=== PATIENT | female | born 1945 | race Caucasian/White ===

== ENCOUNTER 2019-08-15 12:45 | Inpatient (IN) | payer MEDICARE, MEDICAID, SELFPAY ==
[2019-08-15] VITALS (10 sets, daily range): BP systolic 112–137; BP diastolic 51–85; PULSE 72–94; RESP 15–20; TEMP 36.7–37.4; O2SAT 92–97; BMI 45.9
--- NOTE | 2019-08-15 12:44 | ED_ITS ---
Entered by Stella Huerta, acting as scribe for Ervin Carpio DO HPI - General Adult General: Chief complaint: General Medical Stated complaint: BACK PAIN/COUGH Time Seen by Provider: 08/15/19 12:56 History of Present Illness: HPI narrative: 73 yo female presents with cough and back pain. Pt states that she has had this cough for a few days now. Pt states that she was placed on O2 today because EMS thought it was low, she doesn't normally need o2. Pt states that she is having pain in between her shoulder blades at this time. Onset (ago): day(s) Location: back Radiation: non-radiation Severity: moderate Quality: aching Pain Consistency: constant Relieving factors: none Exacerbating factors: movement Associated symptoms: Reports cough; Deny chest pain, dyspnea, malaise, nausea, rash or vomiting Review of Systems Const: Denies: fever, chills, body aches, change in appetite, fatigue or malaise ENMT: Denies: throat pain, ear pain, nasal discharge or nasal congestion Card: Denies: chest pain, edema, shortness of breath on exertion or shortness of breath when lying down Resp: Reports: non-productive cough; Denies: shortness of breath or productive cough GI: Denies: abdominal pain, nausea, vomiting, vomiting blood, coffee grounds in vomit, diarrhea, constipation, bloating, blood in stool or black tarry stool : Denies: flank pain, difficulty urinating, painful urination, urinary frequency or urinary urgency Musc: Reports: back pain Skin/Breast: Denies: rash or itching PFSH ED PFSH: Statuses (acute, chronic, etc) shown below reflect problem list status as previously entered and may not be historically accurate Medical History Arrhythmia (Acute) Back pain (Acute) Carpal tunnel syndrome (Acute) Cervical cancer (Acute) Chronic back pain (Acute) Chronic pain (Acute) COPD (chronic obstructive pulmonary disease) (Acute) Coronary artery disease (Acute) Diabetes mellitus (Acute) Diabetic neuropathy (Acute) Diastolic heart failure (Acute) DJD (degenerative joint disease) (Acute) Hyperlipidemia (Acute) Myocardial infarction (Acute) Obesity (Acute) Obstructive sleep apnea (Acute) Ovarian cancer (Acute) Paroxysmal atrial fibrillation (Acute) Thyroid disease (Acute) Surgical History History of angioplasty (Acute) History of back surgery (Acute) History of carpal tunnel surgery (Acute) History of cholecystectomy (Acute) History of coronary artery stent placement (Acute) History of hysterectomy (Acute) History of knee surgery (Acute) Family History Father No problems noted. Social History Smoking and tobacco status: current every day smoker Smoking risk assessment/counseling performed?: Yes Alcohol intake: current Alcohol intake frequency: holidays/special occasions only Substance/Drug Use: never Physical Exam Const: COMMON NORMALS: no apparent distress GENERAL APPEARANCE: cooperative and comfortable ORIENTATION/CONSCIOUSNESS: Yes awake, Yes oriented to person, Yes oriented to place and Yes oriented to time HENMT: COMMON NORMALS: normocephalic, head/scalp atraumatic, hearing grossly normal bilaterally, external ears normal, EAC's normal, TM's normal bilaterally, nasal mucous membranes and turbinates normal, moist oral mucous membranes and oropharynx normal HEAD & SCALP: normocephalic and atraumatic NOSE: nasal mucous membranes and turbinates normal EXTERNAL EAR: Yes external ears normal EXTERNAL AUDITORY CANAL: EAC's normal TYMPANIC MEMBRANE: TM's normal bilaterally Eye: COMMON NORMALS: PERRL, EOMs intact bilaterally, conjunctivae normal and no scleral icterus CONJUNCTIVA: Yes conjunctivae normal PUPIL: Yes PERRL Neck/C-Spine: COMMON NORMALS: full ROM, no lymphadenopathy, supple and no JVD Lymph: LYMPHATIC: no lymphadenopathy noted and no lymphedema noted Resp: COMMON NORMALS: normal respiratory effort, no retractions, no use of accessory muscles and clear to auscultation bilaterally AUSCULTATION: clear to auscultation bilaterally Cardio: COMMON NORMALS: no JVD, regular rate, regular rhythm and no murmurs RATE: regular rate RHYTHM: regular rhythm GI: COMMON NORMALS: soft to palpation and no hepatosplenomegaly AUSCULTATION: Yes normoactive bowel sounds PALPATION: Yes soft, No tender, No guarding and Yes no hepatosplenomegaly Extremity: COMMON NORMALS: normal to inspection, normal capillary refill, no clubbing, cyanosis or edema, no calf tenderness and no pedal edema Neuro: SENSORIUM/ORIENTATION: Yes oriented to person, Yes oriented to place and Yes oriented to time Skin: COMMON NORMALS: no rashes or lesions noted GENERAL SKIN EXAM: no rashes or lesions noted Course Vital Signs: Vital signs: Vital Signs Temperature 97.6 F 08/17/19 11:16 Pulse Rate 87 08/17/19 12:29 Respiratory Rate 20 H 08/17/19 12:29 Blood Pressure 114/61 08/17/19 11:16 Pulse Oximetry 94 08/17/19 12:29 [facility] - General Adult Lab Data: Labs: Lab Results 08/15/19 08/15/19 08/15/19 Range/Units 13:29 13:29 15:55 WBC 12.1 H (4.0-10.0) 10^3/ uL RBC 4.13 (4.1-5.3) 10^6/u L Hgb 11.8 (11.5-15.3) g/dL Hct 36.4 L (37.0-47.0) % MCV 88.1 (81-99) fL MCH 28.6 (28.0-34.0) pg MCHC 32.4 (30.0-36.0) g/dL RDW 14.2 (12.1-15.1) % Plt Count 220 (130-400) 10^3/c mm MPV 10.9 H (7.4-10.4) fL Neut % (Auto) 70.7 % Lymph % (Auto) 13.8 % Cecil % (Auto) 11.3 % Eos % (Auto) 0.9 % Baso % (Auto) 1.1 % Neut # (Auto) 8.6 H (1.8-7.7) 10^3/u L Lymph # (Auto) 1.7 (0.8-4.8) 10^3/u L Cecil # (Auto) 1.4 H (0.2-0.9) 10^3/u L Eos # (Auto) 0.1 (0.0-0.8) 10^3/u L Baso # (Auto) 0.1 (0.0-0.1) 10^3/u L Nucleated RBC % (a uto) 0 % Nucleated RBCs # 0.0 /100WBC Specimen Type Sample Site ABG pH (7.35-7.45) ABG pCO2 (35-45) mmHg ABG pO2 (80.0-100.0) mmH g ABG HCO3 (22-26) mmol/L ABG O2 Saturation ABG Base Excess (-2.0-2.0) mmol/ L Parmjit Test A-a O2 Gradient (5-10) mmHg Hematocrit (37-47) % Hgb O2 Saturation (95-100) % Carboxyhemoglobin (0.4-20.1) %THgb Methemoglobin (0.4-1.5) % Total Hemoglobin (12-16) g/dL Ionized Calcium (1.1-1.4) mmol/L O2 Delivery Device O2 Liters/Min % FiO2 % Point Of Care Specialist ID Sodium 128 L (136-145) mmol/L Potassium 4.5 (3.5-5.1) mmol/L Chloride 94 L (98-107) mmol/L Carbon Dioxide 19 L (22-29) mmol/L Anion Gap 19.5 H (5-19) BUN 19 (8-23) mg/dL Creatinine 1.0 H (0.5-0.9) mg/dL Glucose 150 H (74-106) mg/dL Calcium 10.1 (8.5-10.5) mg/dL Total Bilirubin 0.6 (0.15-1.2) mg/dL AST 37 H (0-32) U/L ALT 26 (0-33) U/L Alkaline Phosphata se 72 (35-105) IU/L Total Protein 7.9 (6.6-8.7) g/dL Albumin 2.7 L (3.5-5.2) g/dL Globulin 5.2 H (1.3-4.6) g/dL Lipase 34 (13-60) U/L Urine Color Yellow (Yellow) Urine Appearance Cloudy (CLEAR) Urine pH 7 (5-7) Ur Specific Gravit y 1.005 (1.005-1.030) Urine Protein Neg (Negative) Urine Glucose (UA) Norm (Normal) Urine Ketones 1+ H (Negative) Urine Occult Blood Neg (Negative) Urine Nitrate Positive H (Negative) Urine Bilirubin Neg (NEGATIVE) Urine Urobilinogen 1 H (Negative) mg/dL Ur Leukocyte Jessica ase 1+ H (Negative) Urine RBC 0-4 H (0-2) /hpf Urine WBC 15-25 H (0-5) /hpf Ur Squamous Epith Cells 15-25 H (0-5) Urine Bacteria 3+ H (NONE) Urine Mucus Trace 08/15/19 Range/Units 17:16 WBC (4.0-10.0) 10^3/ uL RBC (4.1-5.3) 10^6/u L Hgb (11.5-15.3) g/dL Hct (37.0-47.0) % MCV (81-99) fL MCH (28.0-34.0) pg MCHC (30.0-36.0) g/dL RDW (12.1-15.1) % Plt Count (130-400) 10^3/c mm MPV (7.4-10.4) fL Neut % (Auto) % Lymph % (Auto) % Cecil % (Auto) % Eos % (Auto) % Baso % (Auto) % Neut # (Auto) (1.8-7.7) 10^3/u L Lymph # (Auto) (0.8-4.8) 10^3/u L Cecil # (Auto) (0.2-0.9) 10^3/u L Eos # (Auto) (0.0-0.8) 10^3/u L Baso # (Auto) (0.0-0.1) 10^3/u L Nucleated RBC % (a uto) % Nucleated RBCs # /100WBC Specimen Type Arterial Sample Site Brachial, left ABG pH 7.45 (7.35-7.45) ABG pCO2 32.6 L (35-45) mmHg ABG pO2 71.0 L (80.0-100.0) mmH g ABG HCO3 22.6 (22-26) mmol/L ABG O2 Saturation 94.5 ABG Base Excess -0.9 (-2.0-2.0) mmol/ L Parmjit Test Pos A-a O2 Gradient 137.4 H (5-10) mmHg Hematocrit 37.0 (37-47) % Hgb O2 Saturation 93.1 L (95-100) % Carboxyhemoglobin 1.1 (0.4-20.1) %THgb Methemoglobin 0.5 (0.4-1.5) % Total Hemoglobin 12.1 (12-16) g/dL Ionized Calcium 1.3 (1.1-1.4) mmol/L O2 Delivery Device Nc O2 Liters/Min 4.0 % FiO2 36.0 % Point Of Care Specialist ID cak Sodium 131.0 (136-145) mmol/L Potassium 4.3 (3.5-5.1) mmol/L Chloride (98-107) mmol/L Carbon Dioxide (22-29) mmol/L Anion Gap (5-19) BUN (8-23) mg/dL Creatinine (0.5-0.9) mg/dL Glucose 178.0 H (74-106) mg/dL Calcium (8.5-10.5) mg/dL Total Bilirubin (0.15-1.2) mg/dL AST (0-32) U/L ALT (0-33) U/L Alkaline Phosphata se (35-105) IU/L Total Protein (6.6-8.7) g/dL Albumin (3.5-5.2) g/dL Globulin (1.3-4.6) g/dL Lipase (13-60) U/L Urine Color (Yellow) Urine Appearance (CLEAR) Urine pH (5-7) Ur Specific Gravit y (1.005-1.030) Urine Protein (Negative) Urine Glucose (UA) (Normal) Urine Ketones (Negative) Urine Occult Blood (Negative) Urine Nitrate (Negative) Urine Bilirubin (NEGATIVE) Urine Urobilinogen (Negative) mg/dL Ur Leukocyte Jessica ase (Negative) Urine RBC (0-2) /hpf Urine WBC (0-5) /hpf Ur Squamous Epith Cells (0-5) Urine Bacteria (NONE) Urine Mucus Discharge Plan Discharge Patient Disposition: Admitted As Inpatient Admit Provider: Micha Goode Clinical Impression: COPD exacerbation, Diabetes mellitus, Hyponatremia, Acute diastolic heart failure Condition: Stable Interventions: ED Discharge Assessment Last Done: 08/15/19 18:44 Discharge Date/Time: 08/15/19 19:42 Coding Level of Care Code ED Vessel Engineer for Chg Fwd Exam Problem Focused The documentation recorded by the Bradley bruce Kialy, accurately reflects the service I personally performed and the decisions made by Balaji villalpando Curtis L, DO Aug 15, 2019 12:45
--- NOTE | 2019-08-15 12:57 | XRR_ITS ---
PROCEDURE INFORMATION: Exam: XR Chest, 1 View Exam date and time: 08/15/2019 1:26 PM Age: 73 years old Clinical indication: Cough TECHNIQUE: Imaging protocol: XR of the chest Views: 1 view. COMPARISON: CR Chest 1 [place] [id number] 07/08/2017 9:19 AM FINDINGS: Lungs: Unremarkable. No consolidation. Pleural space: Elevated right hemidiaphragm is seen stable since prior. No pleural effusion. No pneumothorax. Heart/Mediastinum: Unremarkable. No cardiomegaly. Bones/joints: Unremarkable. Surgical hardware seen in the cervical spine stable since prior XR/XR chest 1V portable [id number] IMPRESSION: No acute findings. Stable surgical hardware cervical spine Elevation right hemidiaphragm
[2019-08-15 13:36] LABS: Basophils # 0.1 10^3/uL (0.0-0.1); Basophils % 1.1 %; Eosinophils # 0.1 10^3/uL (0.0-0.8); Eosinophils % 0.9 %; Hematocrit 36.4 % (37.0-47.0); Hemoglobin 11.8 g/dL (11.5-15.3); Lymphocytes # 1.7 10^3/uL (0.8-4.8); Lymphocytes % 13.8 %; Mean Corpuscular HGB Conc 32.4 g/dL (30.0-36.0); Mean Corpuscular Hemoglobin 28.6 pg (28.0-34.0); Mean Corpuscular Volume 88.1 fL (81-99); Mean Platelet Volume 10.9 fL (7.4-10.4); Monocytes # 1.4 10^3/uL (0.2-0.9); Monocytes % 11.3 %; Neutrophils # 8.6 10^3/uL (1.8-7.7); Neutrophils % 70.7 %; Nucleated Red Blood Cells % 0 %; Platelet Count 220 10^3/cmm (130-400); Red Blood Count 4.13 10^6/uL (4.1-5.3); Red Cell Distribution Width 14.2 % (12.1-15.1); White Blood Count 12.1 10^3/uL (4.0-10.0)
[2019-08-15 13:50] LABS: Alanine Aminotransferase 26 U/L (0-33); Albumin Level 2.7 g/dL (3.5-5.2); Alkaline Phosphatase 72 IU/L (35-105); Anion Gap 19.5 (5-19); Aspartate Amino Transferase 37 U/L (0-32); Blood Urea Nitrogen 19 mg/dL (8-23); Calcium 10.1 mg/dL (8.5-10.5); Carbon Dioxide 19 mmol/L (22-29); Chloride 94 mmol/L (98-107); Globulin 5.2 g/dL (1.3-4.6); Glucose 150 mg/dL (74-106); Lipase 34 U/L (13-60); Potassium 4.5 mmol/L (3.5-5.1); Sodium 128 mmol/L (136-145); Total Bilirubin 0.6 mg/dL (0.15-1.2); Total Protein 7.9 g/dL (6.6-8.7)
[2019-08-15] MEDS: ipratropium-albuterol 3 mL Neb INHALATION ×2 (15:55→21:38)
[2019-08-15 16:30] LABS: Urine Appearance Cloudy (CLEAR); Urine Color Yellow (Yellow)
[2019-08-15 16:31] LABS: Add Urine Microscopic? YES; Bilirubin Urine Neg (NEGATIVE); Blood Urine Neg (Negative); Glucose Urine UA Norm (Normal); Ketones Urine 1+ (Negative); Leukocyte Esterase Urine 1+ (Negative); Nitrate Urine Positive (Negative); Protein Urine Neg (Negative); Specific Gravity, Urine 1.005 (1.005-1.030); Urobilinogen Urine 1 mg/dL (Negative); pH Urine 7 (5-7)
[2019-08-15 16:37] LABS: Bacteria Urine 3+; Mucus Urine TRACE; RBC Urine 0-4 /hpf (0-2); Squamous Epithelial Cell Urine 15-25 (0-5); WBC Urine 15-25 /hpf (0-5)
--- NOTE | 2019-08-15 17:17 | ECG_ITS ---
Measurements Intervals [place] Rate: 77 P: 55 RI: 173 QRS: 28 QRSD: 105 T: 21 QT: 382 QTc: 434 SINUS RHYTHM Compared to ECG 07/08/2017 09:26:35 Atrial fibrillation no longer present Myocardial infarct finding no longer present Electronically Signed On 08-15-2019 21:02:52 IT BUSINESS SYSTEMS ANALYST by Amelie Cochran M.D. [id number]
--- NOTE | 2019-08-15 17:26 | PM.HP ---
Providers/Chief Complaint Primary Care Provider: Kannan Contreras Chief Complaint: BACK PAIN/COUGH History of Present Illness Emerald Uriostegui is a 73 year old female that presents from home. She has been having a cough for at least several weeks. No fever. She reports the cough is usually not productive. She has been short of breath, and wheezing. She has had no nausea, vomiting, or diarrhea. She reports she continues to take her medicine as prescribed. She reports she has had significant leg edema, but this is improved as of late. Review of Systems General: Reports: 10 or more systems reviewed and unremarkable except in HPI and below Const: Denies: fever or body aches Eyes: Denies: blurry vision ENMT: Denies: throat pain Card: Reports: chest pain and other (Pain occurs with coughing) Resp: Reports: shortness of breath and wheezing; Denies: coughing up blood GI: Denies: abdominal pain : Denies: flank pain or difficulty urinating Musc: Denies: neck pain Skin/Breast: Denies: rash Neuro: Denies: headache Psych: Denies: depression Endo: Denies: excessive urination Avinash/Lymph: Denies: easy bruising All/Imm: Denies: hives Medications/Allergies Home Medications Medication Instructions Recorded Confirmed Last Taken Type ergocalciferol (vitamin D2) 50,000 unit PO Q7D 08/15/19 08/15/19 08/10/19 History [Vitamin D2] furosemide 40 mg PO DAILY 08/15/19 08/15/19 08/15/19 History insulin glargine [Basaglar KwikPen 52 unit SUBCUT DAILY 08/15/19 08/15/19 08/14/19 History U-100 Insulin] levothyroxine 75 mcg PO DAILY 08/15/19 08/15/19 08/15/19 History metformin 1,000 mg PO BID 08/15/19 08/15/19 08/15/19 History metoprolol tartrate 25 mg PO BID PRN 08/15/19 08/15/19 08/15/19 History montelukast 10 mg PO DAILY 08/15/19 08/15/19 08/15/19 History naproxen 500 mg PO BID PRN 08/15/19 08/15/19 Unknown History oxycodone 15 mg PO QID PRN 08/15/19 08/15/19 08/15/19 History pregabalin 300 mg PO BID 08/15/19 08/15/19 08/15/19 History rivaroxaban [Xarelto] 20 mg PO DAILY 08/15/19 08/15/19 08/15/19 History spironolactone 25 mg PO BID 08/15/19 08/15/19 08/15/19 History Allergies Allergy/AdvReac Type Severity Reaction Status Date / Time cefuroxime [From Zinacef] Allergy ALGY-Hives Verified 07/20/19 18:42 doxepin Allergy ADR-Nightma Verified 07/20/19 18:42 re PFSH Acute PFSH: Statuses (acute, chronic, etc) shown below reflect problem list status as previously entered and may not be historically accurate Medical History (Updated 08/15/19 @ 17:36 by Micha Goode MD) Arrhythmia (Acute) Back pain (Acute) Carpal tunnel syndrome (Acute) Cervical cancer (Acute) Chronic back pain (Acute) Chronic pain (Acute) COPD (chronic obstructive pulmonary disease) (Acute) Coronary artery disease (Acute) Diabetes mellitus (Acute) Diabetic neuropathy (Acute) Diastolic heart failure (Acute) DJD (degenerative joint disease) (Acute) Hyperlipidemia (Acute) Myocardial infarction (Acute) Obesity (Acute) Obstructive sleep apnea (Acute) Ovarian cancer (Acute) Paroxysmal atrial fibrillation (Acute) Thyroid disease (Acute) Surgical History (Updated 08/15/19 @ 17:30 by Micha Goode MD) History of angioplasty (Acute) History of back surgery (Acute) History of carpal tunnel surgery (Acute) History of cholecystectomy (Acute) History of coronary artery stent placement (Acute) History of hysterectomy (Acute) History of knee surgery (Acute) Family History (Updated 08/15/19 @ 17:31 by Micha Goode MD) Father No problems noted. Social History (Updated 08/15/19 @ 17:31 by Micha Goode MD) Smoking and tobacco status: current every day smoker Smoking risk assessment/counseling performed?: Yes Alcohol intake: current Alcohol intake frequency: holidays/special occasions only Substance/Drug Use: never Vitals/I&O/Wt Last Vital Signs Temp 99.3 F 08/15/19 12:38 Pulse 94 08/15/19 15:59 Resp 18 08/15/19 15:55 BP 112/51 08/15/19 12:38 Pulse Ox 92 08/15/19 15:55 Weight last 48 hrs Weight 125.191 kg Physical Exam Narrative: EXAM NARRATIVE: General exam no current distress HEENT: Pupils equally round. Oropharynx clear. Neck is supple obese nontender no obvious lymphadenopathy or thyromegaly Cardiovascular regular rate and rhythm, heart sounds distant Lungs diminished breath sounds bilaterally. A faint expiratory wheeze. Some end expiratory rhonchi. Abdomen is obese nontender. No obvious organomegaly was deferred Extremities show 1+ edema bilaterally. Cap refill brisk. No cyanosis or clubbing Skin no rash Neuro no focal deficits Data : 08/15/19 13:29 08/15/19 13:29 Other data: Urine appears contaminated. Chest x-ray no infiltrate. Elevated right hemidiaphragm. Calcified aorta. Hardware noted in the neck. A&P Assessment and plan (1) COPD exacerbation: IV steroids, pulmonary toilet, IV Levaquin Check influenza swab Status: Acute Code(s): J44.1 - Chronic obstructive pulmonary disease with (acute) exacerbation (2) Hyponatremia: Initiate diuresis. Fluid restrict. Recheck in about 4 hours and tomorrow Status: Acute Code(s): E87.1 - Hypo-osmolality and hyponatremia (3) Acute diastolic heart failure: Initiate diuresis with Lasix Check echocardiogram Status: Acute Code(s): I50.31 - Acute diastolic (congestive) heart failure (4) Leukocytosis: Secondary to COPD exacerbation Status: Acute Code(s): D72.829 - Elevated white blood cell count, unspecified (5) Respiratory failure with hypoxia: Likely secondary to COPD exacerbation/diastolic heart failure Status: Acute Code(s): J96.91 - Respiratory failure, unspecified with hypoxia Additional A&P Information Abnormal urine with lots of squamous. We will repeat Type 2 diabetes. Sliding scale insulin Coronary artery disease Hyperlipidemia Hypothyroidism History of paroxysmal atrial fibrillation Multiple other medical problems as outlined in past medical history Continue patient's Xarelto which will suffice for DVT prophylaxis Attestations Medical Necessity Statement*: Will need greater than 2 midnight stay, for treatment of COPD exacerbation and acute diastolic heart failure Time Spent in Patient Care: Greater than 35 minutes Coding Level of Care Code Acute Media Planner / Buyer for g Fwd Diagnoses COPD exacerbation J44.1 Hyponatremia E87.1 Acute diastolic heart failure I50.31 Leukocytosis D72.829 Respiratory failure with hypoxia J96.91
[2019-08-15 17:27] LABS: ABG PCO2 32.6 mmHg (35-45); ABG PH Result 7.45 (7.35-7.45); Alveolar-Arterial Oxygen Gradi 137.4 mmHg (5-10); Base Excess ABG -0.9 mmol/L (-2.0-2.0); Blood Gas Allen Test Pos; Blood Gas Sample Site Brachial, left; Blood Gas Sample Type Arterial; Carboxyhemoglobin 1.1 %THgb (0.4-20.1); HCO3 ABG 22.6 mmol/L (22-26); HGB O2 Sat 93.1 % (95-100); Ionized Calcium Level - ABG 1.3 mmol/L (1.1-1.4); Methemoglobin 0.5 % (0.4-1.5); Oxygen Device NC; Oxygen Saturation ABG 94.5; Potassium Level - ABG 4.3 mmol/L (3.5-5.0); Total Hemoglobin 12.1 g/dL (12-16)
[2019-08-15 18:34] LABS: Troponin(5th) Baseline 13 ng/mL (0-10)
--- NOTE | 2019-08-15 19:17 | ECG_ITS ---
Measurements Intervals [place] Rate: 76 P: 63 [place]: 175 QRS: 42 QRSD: 113 T: 26 QT: 380 QTc: 428 SINUS RHYTHM MODERATE INTRAVENTRICULAR CONDUCTION DELAY [110+ ms QRS DURATION] Compared to ECG 08/15/2019 18:15:25 Intraventricular conduction delay now present Electronically Signed On 08-16-2019 20:15:50 SUPERVISOR PLASTICS by Sophie Arcos M.D. [id number] f
[2019-08-15 19:36] LABS: NT Pro B Type Natriuretic Pept 315 pg/mL (0-125)
--- NOTE | 2019-08-15 19:51 | USCV_ITS ---
Emerald Uriostegui Age: 73 Gender: F : 1945 Exam Date: 08/15/2019 20:16 Ordering Phys: Micha Goode MD Technologist: Conchita Lam [place] [facility] [place]: [place]F BP: / HR: 75 Rhythm: Sinus Technical Quality: MEASUREMENTS (Male / Female) Normal Values 2D ECHO LV Diastolic Diameter PLAX 3.7 cm 4.2 - 5.9 / 3.9 - 5.3 cm LV Systolic Diameter PLAX 2.6 cm LV Chamber Size 3.3 cm IVS Diastolic Thickness 1.2 cm 0.6 - 1.0 / 0.6 - 0.9 cm IVS Systolic Thickness 1.6 cm LVPW Diastolic Thickness 2.1 cm 0.6 - 1.0 / 0.6 - 0.9 cm LVPW Systolic Thickness 2.5 cm RV Chamber Size 2.4 cm LVOT Diameter 2.0 cm LV Ejection Fraction 2D Teich 57.4 % LV Ejection Fraction MOD 2C 53.5 % LV Ejection Fraction 2C AL 52.3 % LA Diameter 3.8 cm LA Width 3.0 cm LA Height 4.5 cm Aorta at Sinotubular Diameter 1.9 cm M-MODE LV Diastolic Diameter MM 5.2 cm 4.2 - 5.9 / 3.9 - 5.3 cm LV Systolic Diameter MM 3.1 cm LV Ejection Fraction MM Teich 71.1 % IVS Diastolic Thickness MM 0.7 cm 0.6 - 1.0 / 0.6 - 0.9 cm IVS Systolic Thickness MM 1.0 cm LVPW Diastolic Thickness MM 0.9 cm 0.6 - 1.0 / 0.6 - 0.9 cm LVPW Systolic Thickness MM 1.3 cm Aortic Annulus Diameter 2.9 cm LA Ao Ratio MM 1.3 MV E Point Septal Separation 0.5 cm DOPPLER AV Peak Velocity 136.0 cm/s LVOT Peak Velocity 128.0 cm/s AV Area Cont Eq vti 3.3 cm squared AV Area Cont Eq pk 3.0 cm squared MV Area PHT 3.9 cm squared Mitral E to A Ratio 1.1 MV E' Velocity 9.0 cm/s Mitral E to MV E' Ratio 11.1 Mitral E to LV E' Lateral Ratio 10.5 Mitral E to LV E' Septal Ratio 12.0 TR Peak Velocity 173.0 cm/s TR Peak Gradient 12.0 mmHg TV Peak E Velocity 64.0 cm/s Right Atrial Pressure 3.0 mmHg Pulmonary Artery Systolic Pressu 15.0 mmHg PV Peak Velocity 106.0 cm/s RV Acceleration Time 0.1 s RV Ejection Time 0.4 s RV AcT/ET 0.4 FINDINGS Left Ventricle Normal left ventricular cavity size. Normal left ventricular systolic function. No regional wall motion abnormalities. Left ventricular ejection fraction is estimated at 71 %. Grade I/IV diastolic dysfunction (abnormal relaxation filling pattern), normal to mildly elevated filling pressures. Right Ventricle The right ventricle is normal in size and function. Right Atrium The right atrium is normal in size. Left Atrium The left atrium is normal in size. Mitral Valve Structurally normal mitral valve without significant stenosis or prolapse. There is no mitral regurgitation. Aortic Valve Moderate aortic valve calcification. No aortic valve stenosis. No aortic valve regurgitation. Tricuspid Valve Structurally normal tricuspid valve without significant stenosis or regurgitation. Pulmonary artery systolic pressure is normal. Pulmonic Valve Structurally normal pulmonic valve without significant stenosis. There is no pulmonic regurgitation. Pericardium Normal pericardium without effusion. Aorta Normal ascending aorta dimension. CONCLUSIONS 1-Normal left ventricular cavity size. Normal left ventricular systolic function. No regional wall motion abnormalities. Left ventricular ejection fraction is estimated at 71 %. Grade I/IV diastolic dysfunction (abnormal relaxation filling pattern), normal to mildly elevated filling pressures. 2-Moderate aortic valve calcification. No aortic valve stenosis. No aortic valve regurgitation. 3-There is no pericardial effusion. 4-Pulmonary artery systolic pressure is within normal limits. 5-Right atrial pressure is around 5 mm of mercury. 6-When compared to the prior echocardiogram dated 01/15/2015 diastolic function has improved from grade 3 restrictive filling pattern to grade 1 slightly abnormal relaxation pattern. Sophie Arcos MD (Electronically Signed) Final Date: 16 August 2019 19:53 S
--- NOTE | 2019-08-15 19:51 | USCV_ITS ---
Emerald Uriostegui Age: 73 Gender: F : 1945 Exam Date: 08/15/2019 20:35 Ordering Phys: Micha Goode MD Technologist: Conchita Lam Exam Location: [facility] – [place]_ Indication: EDEMA HISTORY: Lower extremity edema. PROCEDURES: Venous duplex imaging was performed in bilateral lower extremities. The following venous structures were evaluated: common femoral vein, profunda vein, proximal portion of the greater saphenous vein, superficial femoral vein, and the popliteal vein. In addition, the posterior tibial and peroneal trunk were evaluated. Serial compression, augmentation maneuvers, and spectral Doppler flow evaluation were performed. FINDINGS: Normal 2-D Doppler and augmentation and compressibility throughout the lower extremity venous structures. Additional imaging through the proximal calf veins also reveals no thrombus. Limited evaluation of the greater saphenous vein is patent with no thrombus.. CONCLUSIONS Negative bilateral lower extremity venous Doppler ultrasound. Dr. Di Moore MD (Electronically Signed) Final Date: 16 August 2019 08:26 S
--- NOTE | 2019-08-15 19:53 | PC.NURSE ---
Patient to room via gurney. A&O. Oriented to staff. Call light in place. VS being taken. Bed is in lowest, locked position.
[2019-08-15 20:07] LABS: Influenza A by IFA Negative (Negative); Influenza B by IFA Negative (Negative)
[2019-08-15 20:17] LABS: Anion Gap 18.4 (5-19); Blood Urea Nitrogen 20 mg/dL (8-23); Calcium 10.1 mg/dL (8.5-10.5); Carbon Dioxide 18 mmol/L (22-29); Chloride 97 mmol/L (98-107); Glucose 204 mg/dL (74-106); Osmolality Calculated 270 mOsm/kg (285-295); Potassium 4.4 mmol/L (3.5-5.1); Sodium 129 mmol/L (136-145)
[2019-08-15 20:19] LABS: Troponin 5 2HR 12.15 ng/mL (0-10)
[2019-08-15 20:27] LABS: Troponin 5 2HR Delta -0.85 ABS# (0-10)
[2019-08-15] MEDS: FUROsemide 10 mg/mL SDV 4mL 40 MG IVP (21:00)
[2019-08-15] MEDS: predniSONE 20 mg Tablet 40 MG PO (21:00)
[2019-08-15] MEDS: oxyCODONE 5 mg IR Tab/Cap 15 MG PO (21:15)
[2019-08-15 21:48] LABS: Glucose Point of Care 217 mg/dL (70-110)
[2019-08-15] MEDS: metoprolol tartrate 25 mg Tablet PO (21:51)
[2019-08-15 22:09] LABS: Blood Urine Neg (Negative); Glucose Urine UA Norm (Normal); Ketones Urine Negative (Negative); Nitrate Urine Positive (Negative); Protein Urine Neg (Negative); Specific Gravity, Urine 1.005 (1.005-1.030); Urine Appearance Clear (CLEAR); Urine Color Yellow (Yellow); pH Urine 6 (5-7)
[2019-08-15 22:10] LABS: Bilirubin Urine Neg (NEGATIVE); Leukocyte Esterase Urine Negative (Negative); Urobilinogen Urine Norm (Negative)
[2019-08-15 22:15] LABS: Add Urine Culture? Yes; Bacteria Urine 3+; Mucus Urine TRACE; Squamous Epithelial Cell Urine 0-4 (0-5); WBC Urine 0-4 /hpf (0-5)
[2019-08-15] MEDS: levofloxacin-dextrose 5 % 750 MG/150 ML PREMIX 150 MG IV (22:15)
--- NOTE | 2019-08-15 23:17 | ECG_ITS ---
Measurements Intervals [place] Rate: 71 P: 59 DC: 186 QRS: 2 QRSD: 102 T: 10 QT: 394 QTc: 429 SINUS RHYTHM Compared to ECG 08/15/2019 18:15:25 No significant changes Electronically Signed On 08-16-2019 20:16:45 MEDIA MANAGER by Sophie Arcos M.D. [id number]
[2019-08-16] VITALS (17 sets, daily range): BP systolic 96–121; BP diastolic 41–69; PULSE 65–81; RESP 17–22; TEMP 36.4–36.8; O2SAT 92–96
[2019-08-16 00:01] LABS: Troponin 5 6HR 11.99 ng/L (0-10)
[2019-08-16 00:09] LABS: Troponin 5 6HR Delta -1.01 ng/L (0-12)
[2019-08-16] MEDS: ipratropium-albuterol 3 mL Neb INHALATION ×5 (03:55→19:47)
[2019-08-16 05:31] LABS: Basophils % 0.2 %; Hematocrit 32.2 % (37.0-47.0); Hemoglobin 10.3 g/dL (11.5-15.3); Lymphocytes % 11.9 %; Mean Corpuscular Hemoglobin 28.1 pg (28.0-34.0); Mean Corpuscular Volume 87.7 fL (81-99); Mean Platelet Volume 10.5 fL (7.4-10.4); Monocytes # 0.5 10^3/uL (0.2-0.9); Monocytes % 5.7 %; Neutrophils # 6.9 10^3/uL (1.8-7.7); Neutrophils % 79.4 %; Nucleated Red Blood Cells % 0 %; Platelet Count 243 10^3/cmm (130-400); Red Blood Count 3.67 10^6/uL (4.1-5.3); White Blood Count 8.7 10^3/uL (4.0-10.0)
[2019-08-16 05:47] LABS: Anion Gap 23.3 (5-19); Blood Urea Nitrogen 21 mg/dL (8-23); Calcium 9.7 mg/dL (8.5-10.5); Carbon Dioxide 18 mmol/L (22-29); Chloride 95 mmol/L (98-107); Glucose 182 mg/dL (74-106); Osmolality Calculated 275 mOsm/kg (285-295); Potassium 4.3 mmol/L (3.5-5.1); Sodium 132 mmol/L (136-145)
[2019-08-16 06:57] LABS: Glucose Point of Care 192 mg/dL (70-110)
[2019-08-16] MEDS: oxyCODONE 5 mg IR Tab/Cap 15 MG PO ×2 (08:43→17:31)
[2019-08-16] MEDS: pregabalin 150 mg Capsule 300 MG PO ×2 (08:43→17:32)
[2019-08-16] MEDS: atorvastatin 40 mg Tablet 20 MG PO (08:44)
[2019-08-16] MEDS: rivaroxaban 10 mg Tablet 20 MG PO (08:44)
[2019-08-16] MEDS: montelukast sodium 10 mg Tablet PO (08:44)
[2019-08-16] MEDS: levothyroxine 150 mcg Tablet 75 MCG PO (08:44)
[2019-08-16] MEDS: FUROsemide 10 mg/mL SDV 4mL 40 MG IVP ×2 (08:45→19:49)
[2019-08-16] MEDS: metoprolol tartrate 25 mg Tablet PO ×2 (08:45→17:32)
[2019-08-16] MEDS: predniSONE 20 mg Tablet 40 MG PO (08:45)
[2019-08-16] MEDS: insulin glargine 100 units/1 mL 52 UNIT SUBCUT (08:47)
[2019-08-16] MEDS: lanolin oint 7 gm 1 APPLIC TOPICAL (08:59)
[2019-08-16 10:59] LABS: Glucose Point of Care 223 mg/dL (70-110)
[2019-08-16] MEDS: levofloxacin-dextrose 5 % 750 MG/150 ML PREMIX 150 MG IV (11:24)
--- NOTE | 2019-08-16 14:06 | PC.CHAP ---
Pastoral Care Encounter/Spiritual Assessment Type of Contact [] Declined inspector set up and lay out visit [] Patient/Family/Request visit [] Outpatient visit [] Follow-up visit [] Physician referral [] Code/Alert [x] Routine visit [] Staff referral [] Actively dying [] Patient sleeping [] Family support [] [] Out of room [] Palliative care [] [] Receiving care in room [] Pre-surgical visit [] Trauma [] Long length of stay [] ICU visit [] Other: Relational/Emotional Strength [x] Patient feels connected with others/family/visitors/staff [] Distress [] Loneliness/isolation [] Abandonment Spirituality of Patient [x] Person of Adali [] Attends Anglican of their Adali [x] Believes in Prayer [] Reads Bible or Gnosticist materials [] There are Spiritual issues to be addressed Meat Seafood Associate Interventions [x] Prayer [x] Active listening [x] Non-anxious presence [x] Spiritual/emotional support [] Crisis/trauma care [] Spiritual counseling [] Bereavement support [] Provided bereavement packet [] Provided Bible/devotional materials [] Provided toy/stuffed animal, coloring book to patient or family member [] Provided Communion [] Anointing/[place] [] Salvation [] Completed spiritual assessment [] Other: Impact on Illness or Injury [] Angry [] Fearful [] Anxious [] Often cries [] Exhaustion [] Unable to work [] Unable to attend bahai [] Unable to walk/stand [] Unable to read [] Unable to drive [] Unable to eat/drink [] Unable to sleep [] Unable to be with family [] Patient intubated [] Other: Summary The inspector set up and lay out visited with the patient and prayed for her. Time spent with patient 10 min.
--- NOTE | 2019-08-16 14:09 | P.PN_ITS ---
Subjective Subjective: Interval history: Emerald reports her breathing is little bit better. Ankles are less swollen. No specific complaints today. Does not feel like she is back to baseline. Still wheezing some. Medications: Reviewed: Yes Vitals/I&O/Wt Last Vital Signs Temp 97.7 F 08/16/19 11:34 Pulse 71 08/16/19 11:34 Resp 20 H 08/16/19 11:34 BP 101/54 08/16/19 11:34 Pulse Ox 92 08/16/19 11:34 08/15/19 08/16/19 08/16/19 22:59 06:59 14:59 Intake Total 900 / 900 600 / 600 Output Total 800 / 800 400 / 1200 Balance -800 / -800 500 / -300 600 / 600 Weight last 48 hrs Weight 125.191 kg Physical Exam Narrative: EXAM NARRATIVE: General exam no apparent distress Cardiovascular regular rate and rhythm without murmur Lungs faint bilateral expiratory wheezes. Improved aeration from yesterday Abdomen is soft with positive bowel sounds Extremities trace edema Data : 08/16/19 04:48 08/16/19 04:48 A&P Assessment and plan (1) COPD exacerbation: Continue oral prednisone Continue Levaquin Continue pulmonary toilet Overall appears to be improving Wean oxygen Status: Acute Code(s): J44.1 - Chronic obstructive pulmonary disease with (acute) exacerbation (2) Hyponatremia: Initiate diuresis. Fluid restrict. Recheck in about 4 hours and tomorrow Status: Acute Code(s): E87.1 - Hypo-osmolality and hyponatremia (3) Acute diastolic heart failure: Continue diuresis with Lasix Echocardiogram is pending Lower extremity edema and dyspnea is improved Status: Acute Code(s): I50.31 - Acute diastolic (congestive) heart failure (4) Leukocytosis: Resolved Status: Acute Code(s): D72.829 - Elevated white blood cell count, unspecified (5) Respiratory failure with hypoxia: Likely secondary to COPD exacerbation/diastolic heart failure Improving. Will wean oxygen Status: Acute Code(s): J96.91 - Respiratory failure, unspecified with hypoxia Additional A&P Information Abnormal urine with lots of squamous. Repeat urinalysis did not indicate UTI Type 2 diabetes. Sliding scale insulin Coronary artery disease Hyperlipidemia Hypothyroidism History of paroxysmal atrial fibrillation Multiple other medical problems as outlined in past medical history Continue patient's Xarelto which will suffice for DVT prophylaxis Attestations Medical Necessity Statement*: Needs continued hospital stay for pulmonary toilet, IV antibiotics, secondary to COPD exacerbation. 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
[2019-08-16 16:11] LABS: Glucose Point of Care 226 mg/dL (70-110)
[2019-08-16] MEDS: efferdent effervescent 1 EACH DENTAL (19:49)
[2019-08-16 21:44] LABS: Glucose Point of Care 214 mg/dL (70-110)
[2019-08-17] VITALS (22 sets, daily range): BP systolic 96–145; BP diastolic 53–82; PULSE 65–89; RESP 16–24; TEMP 36.4–36.8; O2SAT 90–96
[2019-08-17] MEDS: ipratropium-albuterol 3 mL Neb INHALATION ×6 (00:04→20:04)
[2019-08-17] MEDS: oxyCODONE 5 mg IR Tab/Cap 15 MG PO ×4 (00:47→21:46)
[2019-08-17 05:33] LABS: Blood Urea Nitrogen 31 mg/dL (8-23); Carbon Dioxide 22 mmol/L (22-29); Chloride 98 mmol/L (98-107); Glucose 167 mg/dL (65-115); Osmolality Calculated 279 mOsm/kg (285-295); Sodium 134 mmol/L (136-145)
[2019-08-17 06:57] LABS: Glucose Point of Care 175 mg/dL (70-110)
[2019-08-17] MEDS: metoprolol tartrate 25 mg Tablet PO ×2 (08:16→18:04)
[2019-08-17] MEDS: predniSONE 20 mg Tablet 40 MG PO (08:16)
[2019-08-17] MEDS: levothyroxine 150 mcg Tablet 75 MCG PO (08:16)
[2019-08-17] MEDS: rivaroxaban 10 mg Tablet 20 MG PO (08:17)
[2019-08-17] MEDS: pregabalin 150 mg Capsule 300 MG PO ×2 (08:18→18:04)
[2019-08-17] MEDS: atorvastatin 40 mg Tablet 20 MG PO (08:19)
[2019-08-17] MEDS: montelukast sodium 10 mg Tablet PO (08:19)
[2019-08-17] MEDS: insulin glargine 100 units/1 mL 52 UNIT SUBCUT (08:23)
[2019-08-17] MEDS: levofloxacin-dextrose 5 % 750 MG/150 ML PREMIX 150 MG IV (08:29)
[2019-08-17 10:59] LABS: Glucose Point of Care 194 mg/dL (70-110)
[2019-08-17] MEDS: FUROsemide 10 mg/mL SDV 4mL 40 MG IVP (11:08)
--- NOTE | 2019-08-17 11:31 | PC.RESP ---
Patient given information on Smoking Cessation and Pulmonary Rehab.
--- NOTE | 2019-08-17 12:54 | P.PN_ITS ---
Subjective Subjective: Interval history: Sandy reports she is still short of breath. She does report she has better than she was. She denies any chest discomfort. Occasional cough but it is not productive. Medications: Reviewed: Yes Vitals/I&O/Wt Last Vital Signs Temp 97.6 F 08/17/19 11:16 Pulse 87 08/17/19 12:29 Resp 20 H 08/17/19 12:29 BP 114/61 08/17/19 11:16 Pulse Ox 94 08/17/19 12:29 08/16/19 08/17/19 08/17/19 22:59 06:59 14:59 Intake Total 480 / 1230 260 / 1490 480 / 480 Output Total 900 / 900 Balance 480 / 1230 -640 / 590 480 / 480 Physical Exam Narrative: EXAM NARRATIVE: General exam no apparent distress Cardiovascular regular rate and rhythm without murmur Lungs no wheezing today. Diminished breath sounds are still noted bilaterally Abdomen is soft with positive bowel sounds Extremities no cyanosis clubbing or edema Data : 08/16/19 04:48 08/17/19 04:47 Micro: Microbiology 08/15/19 21:18 Urine Culture - Preliminary Urine,Clean Catch Gram Negative Rods A&P Assessment and plan (1) COPD exacerbation: Continue oral prednisone Continue Levaquin Continue pulmonary toilet Try to wean oxygen. At this point she is still on 3 L Note abnormal x-ray. Right hemidiaphragm elevation is old. Status: Acute Code(s): J44.1 - Chronic obstructive pulmonary disease with (acute) exacerbation (2) Hyponatremia: With diuresis and fluid restriction, sodium has improved to 134. Status: Acute Code(s): E87.1 - Hypo-osmolality and hyponatremia (3) Acute diastolic heart failure: She has been diuresed with Lasix. Creatinine has now started to increase and she appears euvolemic. Will discontinue IV Lasix. Liberalize fluid restriction slightly Echocardiogram reviewed, EF preserved, diastolic dysfunction improved from last echocardiogram. No evidence of RV overload Venous duplex was also performed secondary to lower extremity edema. No DVT was noted. Status: Acute Code(s): I50.31 - Acute diastolic (congestive) heart failure (4) Leukocytosis: Resolved Status: Acute Code(s): D72.829 - Elevated white blood cell count, unspecified (5) Respiratory failure with hypoxia: Likely secondary to COPD exacerbation/diastolic heart failure Continue to try to wean oxygen Status: Acute Code(s): J96.91 - Respiratory failure, unspecified with hypoxia Additional A&P Information Abnormal urine with lots of squamous. Repeat urinalysis did not indicate UTI Type 2 diabetes. Sliding scale insulin Coronary artery disease Hyperlipidemia Hypothyroidism History of paroxysmal atrial fibrillation, on anticoagulation Multiple other medical problems as outlined in past medical history Continue patient's Xarelto which will suffice for DVT prophylaxis Attestations Medical Necessity Statement*: Needs continued hospital stay for IV antibiotics, pulmonary toilet secondary to COPD exacerbation. 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
[2019-08-17 16:11] LABS: Glucose Point of Care 223 mg/dL (70-110)
--- NOTE | 2019-08-17 19:00 | PC.NURSE ---
Introduction of staff and report received, aidet.
[2019-08-17 20:50] LABS: Glucose Point of Care 185 mg/dL (70-110)
[2019-08-18] VITALS (21 sets, daily range): BP systolic 105–137; BP diastolic 57–76; PULSE 65–109; RESP 16–22; TEMP 36.4–36.9; O2SAT 86–97
[2019-08-18] MEDS: ipratropium-albuterol 3 mL Neb INHALATION ×5 (03:37→15:05)
[2019-08-18] MEDS: oxyCODONE 5 mg IR Tab/Cap 15 MG PO ×3 (03:48→19:48)
[2019-08-18 06:51] LABS: Glucose Point of Care 122 mg/dL (70-110)
[2019-08-18] MEDS: levothyroxine 150 mcg Tablet 75 MCG PO (08:20)
[2019-08-18] MEDS: pregabalin 150 mg Capsule 300 MG PO ×2 (08:20→17:39)
[2019-08-18] MEDS: rivaroxaban 10 mg Tablet 20 MG PO (08:20)
[2019-08-18] MEDS: montelukast sodium 10 mg Tablet PO (08:21)
[2019-08-18] MEDS: FUROsemide 40 mg Tablet PO (08:21)
[2019-08-18] MEDS: atorvastatin 40 mg Tablet 20 MG PO (08:21)
[2019-08-18] MEDS: predniSONE 20 mg Tablet 40 MG PO (08:22)
[2019-08-18] MEDS: metoprolol tartrate 25 mg Tablet PO ×2 (08:22→17:40)
[2019-08-18] MEDS: insulin glargine 100 units/1 mL 52 UNIT SUBCUT (08:27)
[2019-08-18] MEDS: levofloxacin-dextrose 5 % 750 MG/150 ML PREMIX 150 MG IV (08:30)
--- NOTE | 2019-08-18 09:30 | PC.SOCIAL ---
IMM Page 2 of IMM explained to and signed by patient. Initialed, dated, and timed and placed in chart. Copy provided to patient.
[2019-08-18 10:58] LABS: Glucose Point of Care 166 mg/dL (70-110)
[2019-08-18 17:00] LABS: Glucose Point of Care 214 mg/dL (70-110)
--- NOTE | 2019-08-18 17:25 | P.DS_ITS ---
Discharge Providers Date of Admission: 08/15/19 17:23 Date of Discharge: Date of Discharge: August 18, 2019 Attending Provider at Admission: Micha Goode MD Attending Provider at Discharge: Pelon Vallejo Primary Care Provider: Kannan Contreras Diagnoses at Discharge Discharge Diagnosis (1) COPD exacerbation: Status: Acute (2) Hyponatremia: Status: Acute Problem details: Improved (3) Acute diastolic heart failure: Status: Acute (4) Leukocytosis: Status: Acute (5) Respiratory failure with hypoxia: Status: Acute Reason for Visit Reason for Visit: Reason For Visit: COPD EXACERBATION, HYPONATREMIA Hospital Course Hospital Course: 73-year-old lady with history of diastolic heart failure, COPD, BERNADINE, paroxysmal A. fib, CAD, DM 2, other medical conditions was admitted after presenting with cough of several week duration, with shortness of breath and wheezing, recurrent lower extremity edema. She was treated for COPD exacerbation with IV steroids, antibiotic, breathing treatments, pulmonary toilet. Received treatment with diuretics for exacerbation of diastolic congestive heart failure, with normal ejection fraction on TTE, grade 1 diastolic dysfunction, with improvement in the satisfaction compared to prior echo from 2015. Her oxygenation and symptoms gradually improved. She was transitioned to oral steroids. She is still coughing somewhat productive of phlegm, however, has been weaned off oxygen, and is doing well on room air. On examination she no longer has wheezing. She did not qualify for oxygen on home evaluation. Physical Exam Const: COMMON NORMALS: no apparent distress and oriented x3 HENMT: COMMON NORMALS: oropharynx normal Neck/C-Spine: COMMON NORMALS: no JVD Resp: COMMON NORMALS: normal respiratory effort and clear to auscultation bilaterally AUSCULTATION: clear to auscultation bilaterally Cardio: COMMON NORMALS: no JVD, regular rhythm, S1 normal heart sound, S2 normal heart sound and no murmurs RHYTHM: regular rhythm HEART SOUNDS: S1 normal and S2 normal GI: COMMON NORMALS: normal to inspection, nondistended, normoactive bowel sounds, soft to palpation and non-tender PALPATION: Yes soft Extremity: COMMON NORMALS: no joint enlargement and no pedal edema Neuro: COMMON NORMALS: oriented x3 and moves all extremities Skin: COMMON NORMALS: no rashes or lesions noted GENERAL SKIN EXAM: no rashes or lesions noted Discharge Data Data Completed and Pending: Completed Studies During Hospitalization Category Date Time Status XR chest 1V shaylee ble [id number] Stat Exams 08/15/19 12:57 Completed CV echo complete* [id number] Urgent Ultrasound 08/15/19 19:51 [place] [id number] Urgent Ultrasound 08/15/19 19:51 Completed Pending at discharge Category Date Time Status Urine Culture Sta t Lab 08/15/19 21:18 Results Labs from last 24 hours 08/18/19 08/18/19 08/18/19 16:54 10:50 06:42 POC Glucose 214 166 122 08/17/19 20:36 POC Glucose 185 Vitals: Last Vital Signs Temp 98.2 F 08/18/19 15:58 Pulse 74 08/18/19 15:58 Resp 18 08/18/19 15:58 BP 105/58 08/18/19 15:58 Pulse Ox 92 08/18/19 16:50 Discharge Plan Discharge Patient Disposition: Home Health Service Condition: Stable Prescriptions: New albuterol sulfate 90 mcg/actuation HFA aerosol inhaler 2 inh INHALATION Q6H PRN (Reason: shortness of breath or wheezing) Qty: 8 RF: 0 levofloxacin [Levaquin] 750 mg tablet 750 mg PO DAILY 5 Days Qty: 5 RF: 0 Incruse Ellipta 62.5 mcg/actuation blister with device 1 inh INHALATION DAILY Qty: 30 RF: 0 prednisone 20 mg tablet 20 mg PO DAILY 9 Days Qty: 11 RF: 0 Continued simvastatin 40 mg tablet 40 mg PO DAILY 30 Days Qty: 30 RF: 5 spironolactone 25 mg tablet 25 mg PO BID RF: 0 oxycodone 15 mg tablet 15 mg PO QID PRN (Reason: Pain) RF: 0 levothyroxine 75 mcg tablet 75 mcg PO DAILY RF: 0 metformin 1,000 mg tablet 1,000 mg PO BID RF: 0 montelukast 10 mg tablet 10 mg PO DAILY RF: 0 Vitamin D2 1,250 mcg (50,000 unit) capsule 50,000 unit PO Q7D RF: 0 naproxen 500 mg tablet 500 mg PO BID PRN (Reason: Pain) RF: 0 metoprolol tartrate 25 mg tablet 25 mg PO BID PRN (Reason: heart rate) RF: 0 pregabalin 300 mg capsule 300 mg PO BID RF: 0 Basaglar KwikPen U-100 Insulin 100 unit/mL (3 mL) insulin pen 52 unit SUBCUT DAILY RF: 0 Xarelto 20 mg tablet 20 mg PO DAILY RF: 0 Changed furosemide 40 mg tablet 40 mg PO DAILY PRN (Reason: Edema) Qty: 0 RF: 0 Discharge Orders: Discharge Order (Routine); Ordered 08/18/19 Ordered By: Pelon Vallejo Other Ambulatory Orders: Basic Metabolic Panel (Routine) Timeframe: 3 Days Facility: [facility] - Location: Lab - Main Lab Ordered By: Pelon Vallejo Referrals: Kannan Contreras [Primary Care Provider] - 4-7 days Discharge Diet: Cardiac and Diabetic Discharge Activity: Increase activity as tolerated Activity Restrictions/Additional Instructions: Please stop smoking. Avoid drinking more than 1 quart per day. 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
[2019-08-18 21:07] LABS: Glucose Point of Care 142 mg/dL (70-110)
--- NOTE | 2019-08-18 21:30 | PC.NURSE ---
Patient Discharge by wheel chair with STEEPING PRESS OPERATOR assist to ER entrance with family. All belongings with patient.
== END 2019-08-18 21:30 | disposition home health service (06) | DRG 291 ==
LOC: ER 18:44 → MEDSURG 18:44
PROVIDERS: Admitting Provider Internal Medicine; Emergency Provider Family Medicine; Family Provider Family Medicine; PCP Family Medicine; Visit Provider Internal Medicine
DX: I50.33 Acute on chronic diastolic (congestive) heart failure (principal); J96.01 Acute respiratory failure with hypoxia; J44.1 Chronic obstructive pulmonary disease with (acute) exacerbation; E87.1 Hypo-osmolality and hyponatremia; Z85.41 Personal history of malignant neoplasm of cervix uteri; I25.10 Atherosclerotic heart disease of native coronary artery without angina pectoris; E11.42 Type 2 diabetes mellitus with diabetic polyneuropathy; M19.90 Unspecified osteoarthritis, unspecified site; E78.5 Hyperlipidemia, unspecified; I25.2 Old myocardial infarction; E66.9 Obesity, unspecified; G47.33 Obstructive sleep apnea (adult) (pediatric); F17.210 Nicotine dependence, cigarettes, uncomplicated; Z85.43 Personal history of malignant neoplasm of ovary; I48.0 Paroxysmal atrial fibrillation; Z79.01 Long term (current) use of anticoagulants; Z90.49 Acquired absence of other specified parts of digestive tract; Z90.710 Acquired absence of both cervix and uterus; Z95.5 Presence of coronary angioplasty implant and graft
CPT/HCPCS: 12345; 36415; 36416; 36600; 71045; 80048; 80051; 80053; 81001; 82810; 82962; 83690; 83880; 83986; 84443; 84484; 85025; 87077; 87086; 87186; 87804; 93005; 93306; 93970; 94640; 96365; 96366; 96372; 96374; 96375; 99283; J1815; J1940; J1956; J2930; J7512

== ENCOUNTER → 2019-09-09 13:29 | Outpatient (BNVA) | payer MEDICARE, MEDICAID, SELFPAY | PROVIDERS: Family Provider Family Medicine; PCP Family Medicine; Visit Provider Nurse Practitioner | DX: M54.9 Dorsalgia, unspecified (principal); G56.00 Carpal tunnel syndrome, unspecified upper limb; Z79.891 Long term (current) use of opiate analgesic | CPT/HCPCS: 99214 ==

== ENCOUNTER 2019-10-20 10:05 | Outpatient (CLI) | payer MEDICARE, MEDICAID, SELFPAY ==
--- NOTE | 2019-10-20 10:12 | XR_ITS ---
WS: [id number] LEFT WRIST: 3 VIEW(S) TECHNIQUE: PA, oblique and lateral. HISTORY: Hand and wrist pain. COMPARISON: None available. No acute fracture or dislocation. Moderate osteoarthritis at the first carpometacarpal joint. Osteoph ytes and subchondral cystic changes with joint space narrowing. No joint space abnormality. No soft tissue swelling. XR/XR wrist LT min 3V* [id number] IMPRESSION: Moderate osteoarthritis at the first carpometacarpal joint.
== END 2019-10-20 10:06 | disposition home or self-care (01) ==
LOC: RADWPI 10:10
PROVIDERS: Family Provider Family Medicine; PCP Family Medicine; Visit Provider Nurse Practitioner
DX: M19.042 Primary osteoarthritis, left hand (principal); M54.12 Radiculopathy, cervical region; Z87.891 Personal history of nicotine dependence
CPT/HCPCS: 73110; 95886; 95910

== ENCOUNTER → 2019-11-04 11:11 | Outpatient (BNVA) | payer MEDICARE, MEDICAID, SELFPAY | PROVIDERS: Family Provider Family Medicine; PCP Family Medicine; Visit Provider Nurse Practitioner | DX: G89.29 Other chronic pain (principal); M54.9 Dorsalgia, unspecified; M54.12 Radiculopathy, cervical region; F17.210 Nicotine dependence, cigarettes, uncomplicated; Z79.891 Long term (current) use of opiate analgesic | CPT/HCPCS: 99214 ==

== ENCOUNTER 2019-11-11 11:27 | Outpatient (CLI) | payer MEDICARE, MEDICAID, SELFPAY ==
--- NOTE | 2019-11-11 15:00 | CT_ITS ---
WS: [id number] CT CERVICAL SPINE TECHNIQUE: Noncontrast CT of the cervical spine with coronal and sagittal reformatted images. CLINICAL INFORMATION: Radiculopathy COMPARISON: None. DLP: 2169.[address] scans at [facility] use at least one of these dose optimization techniques: automat ed exposure control; mA and/or kV adjustment per patient size (includes targeted exams where dose is matched to clinical indication); or iterative reconstruction. FINDINGS: Straightening of the normal cervical lordosis. Prior postoperative changes anterior interbody cervica l fusion C5-C7. Anterior fusion appears solid. C2-C3: Mild disc bulging with osteophytic ridging. Mild facet arthropathy. Mild left and no significa nt right foraminal narrowing. Spinal canal is patent. C3-C4: Mild disc osteophyte complex with endplate ridging. Prominent central disc protrusion with mod erate central canal stenosis. Contact of the cervical cord. Mild to moderate left foraminal narrowing . Mild facet arthropathy. C4-C5: Mild disc osteophyte complex with endplate ridging. Mild right and no significant left foramin al narrowing. Mild to moderate facet arthropathy. Small central disc protrusion. Mild central canal s tenosis. C5-C6: Postoperative changes. Moderate left greater than right bony foraminal narrowing. Moderate tim tral canal stenosis. Prominent central protruding osteophyte with narrowing of the subarticular reces s. Mild facet arthropathy. C6-C7: Postoperative changes. Disc osteophytic ridging with small central osteophyte. Moderate left f oraminal narrowing. Mild central canal stenosis. C7-T1: Mild right and no significant left foraminal narrowing. Spinal canal is patent. Visualized posterior nasopharynx: Normal. Prevertebral soft tissues: Normal. CT/CT cervical spin wo con* [id number] IMPRESSION: 1. Straightening of the normal cervical lordosis with solid-appearing anterior interbody cervical fusion C5-C7. 2. No evidence of hardware loosening. 3. Moderate bony foraminal narrowing left C5-C6 and left C6-C7. 4. Prominent central disc protrusion C3-C4 with moderate central canal stenosi s. This can be further evaluated with MRI or myelogram. 5. Mild central canal stenosis C4-C5 and moderate central canal stenosis C5-C6 . Small central protrusion C4-C5 and prominent central osteophyte C5-C6.
== END 2019-11-11 11:28 | disposition home or self-care (01) ==
LOC: RADWPI 11:33
PROVIDERS: Family Provider Family Medicine; PCP Family Medicine; Visit Provider Nurse Practitioner
DX: M54.12 Radiculopathy, cervical region (principal); M43.22 Fusion of spine, cervical region; M48.02 Spinal stenosis, cervical region; M50.21 Other cervical disc displacement, high cervical region
CPT/HCPCS: 72125

== ENCOUNTER → 2019-12-29 13:38 | Outpatient (BNVA) | payer MEDICARE, MEDICAID, SELFPAY | PROVIDERS: Family Provider Family Medicine; PCP Family Medicine; Visit Provider Anesthesiology | DX: G89.29 Other chronic pain (principal); M54.41 Lumbago with sciatica, right side; M54.42 Lumbago with sciatica, left side; M54.9 Dorsalgia, unspecified; M19.90 Unspecified osteoarthritis, unspecified site; M54.12 Radiculopathy, cervical region; F17.210 Nicotine dependence, cigarettes, uncomplicated; Z79.891 Long term (current) use of opiate analgesic; Z71.6 Tobacco abuse counseling | CPT/HCPCS: 99214 ==

== ENCOUNTER 2020-01-05 10:04 | Outpatient (CLI) | payer MEDICARE, MEDICAID, SELFPAY ==
--- NOTE | 2020-01-05 12:00 | XR_ITS ---
WS: [id number] LUMBAR SPINE TECHNIQUE: 1 view of the lumbar spine CLINICAL INFORMATION: NECK AND ARM PAIN, ATTEMPTED MYELOGRAM COMPARISON: None. FINDINGS/IMPRESSION Attempted lumbar and cervical myelogram. Despite multiple attempts intrathecal access with good contr ast flow could not be obtained likely due to spinal stenosis. Prior bony fusion L3-S1 with interconn ecting rods.
== END 2020-01-05 10:05 | disposition home or self-care (01) ==
PROVIDERS: Family Provider Family Medicine; PCP Family Medicine; Visit Provider Nurse Practitioner
DX: M54.2 Cervicalgia (principal); M79.603 Pain in arm, unspecified
CPT/HCPCS: 72020

== ENCOUNTER → 2020-02-28 13:13 | Outpatient (BNVA) | payer MEDICARE, MEDICAID, SELFPAY | PROVIDERS: Family Provider Family Medicine; PCP Family Medicine; Visit Provider Anesthesiology | DX: G89.29 Other chronic pain (principal); M54.42 Lumbago with sciatica, left side; M54.41 Lumbago with sciatica, right side; M54.9 Dorsalgia, unspecified; M54.12 Radiculopathy, cervical region; M19.90 Unspecified osteoarthritis, unspecified site; Z79.891 Long term (current) use of opiate analgesic | CPT/HCPCS: 99214 ==

== ENCOUNTER → 2020-05-09 10:55 | Outpatient (BNVA) | payer MEDICARE, MEDICAID, SELFPAY | PROVIDERS: Family Provider Family Medicine; PCP Family Medicine; Visit Provider Anesthesiology | DX: G89.29 Other chronic pain (principal); M54.9 Dorsalgia, unspecified; M19.90 Unspecified osteoarthritis, unspecified site; M54.12 Radiculopathy, cervical region; Z79.891 Long term (current) use of opiate analgesic | CPT/HCPCS: 99213; 99214 ==

== ENCOUNTER → 2020-05-25 09:15 | Outpatient (BNVA) | payer MEDICARE, MEDICAID, SELFPAY | PROVIDERS: Family Provider Family Medicine; PCP Family Medicine; Visit Provider Anesthesiology | DX: G89.29 Other chronic pain (principal); M54.42 Lumbago with sciatica, left side; M54.41 Lumbago with sciatica, right side; M54.9 Dorsalgia, unspecified; M19.90 Unspecified osteoarthritis, unspecified site; M54.12 Radiculopathy, cervical region; Z79.891 Long term (current) use of opiate analgesic | CPT/HCPCS: 99213; 99214 ==

== ENCOUNTER 2020-06-11 09:47 | Outpatient (CLI) | payer MEDICARE, MEDICAID, SELFPAY ==
--- NOTE | 2020-06-11 09:57 | IR_ITS ---
WS: [id number] CERVICAL MYELOGRAM HISTORY: M54.2 - Cervicalgia COMPARISON: None available. FLUOROSCOPY TIME: 1.1 minutes. Procedure, risks and complications were explained to the patient. Risks including bleeding, infection , headaches, allergic reaction and seizures. Consent has been obtained. Very complicated and difficult myelogram procedure due to patient's immobility and body habitus. With the patient in prone position the skin over the lumbar region is cleansed with ChloraPrep and an esthetized with lidocaine. 22-gauge spinal needle is inserted into the thecal sac at the appropriate level determined by fluoroscopy. Omnipaque 300; 12 ml is injected slowly under fluoroscopy with no co mplications. Needle bevel is perpendicular to the longitudinal fibers of the dura. Stylet is reinsert ed prior to removal of the needle. Patient tolerated the procedure well. Patient will proceed to CT f or further evaluation. Prior anterior cervical fusion from C5 to C7. The entire fusion hardware is not visualized due to bod y habitus. Hypertrophic anterior osteophytes at C3 and C4. There is a very limited flexion-extension evaluation with no instability demonstrated. IR/IR myelogram sp cervical [id number] IMPRESSION: 1. Very limited and complicated cervical myelogram due to immobility of the pa tient and body habitus. 2. No cervical instability identified. 3. Anterior cervical fusion with interbody spacers from C5 to C7. 4. Cervical myelogram CT report to follow.
--- NOTE | 2020-06-11 09:57 | CT_ITS ---
WS: [id number] CT CERVICAL MYELOGRAM HISTORY: M54.2 - Cervicalgia Technique: All CT scans at [facility] use at least one of these dose optimization techniq ues: automated exposure control; mA and/or kV adjustment per patient size (includes targeted exams wh ere dose is matched to clinical indication); or iterative reconstruction. DLP: 1923.04 mGycm COMPARISON: 11/11/2019 Quality of this examination is limited by body habitus. Good opacification of thecal sac with contrast. Prior anterior cervical fusion from C5 through C7. Interbody spaces appear completely fused at C5-6 a nd C6-7. No lucency around the hardware or displacement. C1-C2: Normal. C2-C3: Mild annular disc bulging with a shallow central disc protrusion. Mild effacement of CSF with no high-grade stenosis. C3-C4: Large central disc protrusion. Protrusion extends above and below the disc space. Disc extends over a length of 8 mm and there is significant mass effect upon the ventral thecal sac and cord. Thi s central disc protrusion is causing a significant stenosis centrally. Mild bilateral facet joint art hritis due to disc osteophyte disease. C4-C5: Osteophytic ridging around the vertebral body with encroachment upon the thecal sac. Complete effacement of CSF to the RIGHT of midline. Mild central and bilateral foraminal stenosis. C5-C6: Osteophytic ridging and hypertrophic bone formation at the disc level encroaching upon the nicole tral thecal sac. Osteophyte disease contributing to moderate central and bilateral foraminal stenosis . C6-C7: Marked osteophytic ridging with encroachment upon the thecal sac. There is a large osteophyte extending into the LEFT lateral recess contacting the LEFT lateral cord. Moderate central and bilater al foraminal stenosis, LEFT greater than RIGHT. C7-T1: Osteophytic ridging with no significant stenosis. CT/CT cervical spine w con [id number] IMPRESSION: 1. Large central disc protrusion at C3-4 causing significant mass effect upon the central cord with the disc extending above and below the disc space. Severe central stenosis and mild bilateral facet joint arthritis. 2. Prior anterior cervical fusion with interbody fusion at C5-6 and C6-7 appea rs to be intact. 3. Hypertrophic bone formation at C5-6 and C6-7 with significant encroachment upon the thecal sac. 4. Moderate central and bilateral foraminal stenosis at C5-6 due to hypertroph ic bone formation. 5. Moderate central and bilateral foraminal stenosis at C6-7. Hypertrophic ost eophyte extends into the LEFT lateral recess with significant mass effect upon the cord.
[2020-06-11] MEDS: iohexol 300 mg/mL 50 mL Btl INTRATHECA (10:56)
== END 2020-06-11 09:48 | disposition home or self-care (01) ==
LOC: RADWPI 09:53
PROVIDERS: PCP Family Medicine; Visit Provider Orthopaedic Surgery
DX: M43.22 Fusion of spine, cervical region (principal); M50.21 Other cervical disc displacement, high cervical region; M48.02 Spinal stenosis, cervical region
CPT/HCPCS: 62302; 72040; 72126; Q9967

== ENCOUNTER 2020-07-30 05:52 | Day surgery (SDC) | payer MEDICARE, MEDICAID, SELFPAY ==
[2020-07-25 13:22] VITALS: BMI 45.4
[2020-07-30] VITALS (15 sets, daily range): BP systolic 108–167; BP diastolic 54–103; PULSE 67–90; RESP 13–28; TEMP 36.2–36.6; O2SAT 91–97
--- NOTE | 2020-07-30 | SCC_ITS ---
Procedure Done: 1. Anterior diskectomy C3/4 2. Insertion of cage C3/4 3. Instrumentation with anterior plate from C53-C4 4. Use of allograft 30.6 seconds of fluoroscopic guidance, for a cumulative dose of 6.04 mGy, was provided to Dr. Hudson by the radiology department. C-arm images of the cervical spine were saved for the patient's permanent record. SADIA
--- NOTE | 2020-07-30 | XR_ITS ---
WS: [id number] C-ARM RADIOGRAPHS CERVICAL SPINE; 3 IMAGES HISTORY: Cervical spondylosis w/ myelopathy COMPARISON: None available. Limited evaluation of the cervical spine. Anterior cervical plate and interbody spacer appears to be at the C3-4 level. Quality of examination is limited due to technique. XR/XR cervical spine 3V* [id number] IMPRESSION: Intraoperative imaging during anterior cervical fusion at what is probably the C3-4 level.
[2020-07-30 06:32] LABS: Glucose Point of Care 94 mg/dL (70-110)
[2020-07-30] MEDS: gabapentin 300 mg Capsule PO (06:37)
--- NOTE | 2020-07-30 06:45 | ECG_ITS ---
[facility] Test Date: 2020-07-30 Pat Name: Emerald Uriostegui Department: Room: Gender: Female Plant Associate: : 1945 Requested By: Patrick Jimenez Order Number: [id number] Saurav MD: Amelie Cochran M.D. Measurements Intervals [place] Rate: 66 P: 40 IN: 184 QRS: 40 QRSD: 97 T: 26 QT: 392 QTc: 411 Interpretive Statements SINUS RHYTHM LOW QRS VOLTAGE IN PRECORDIAL LEADS [QRS DEFLECTION < 1.0 mV IN CHEST LEADS] POSSIBLE ANTERIOR MYOCARDIAL INFARCTION [30 ms Q WAVE IN V3/V4, OR R < 0.2 mV IN V4], PROBABLY OLD Compared to ECG 08/16/2019 03:53:07 Low QRS voltage now present Myocardial infarct finding now present Electronically Signed On 07-30-2020 18:53:27 PAYROLL CONSULTANT by Amelie Cochran M.D. [id number]
[2020-07-30] MEDS: sodium chloride 0.9% 1,000 ML 30 ML IV (06:53)
--- NOTE | 2020-07-30 06:53 | P.ANESASSM_ITS ---
Pre-Anesthetic Assessment Pre-Anesthetic Assessment: Height/Weight: Height 1.65 m Weight 123.831 kg Temp Pulse Resp BP Pulse Ox 98 F 67 18 110/54 94 07/30/20 06:37 07/30/20 06:37 07/30/20 06:37 07/30/20 06:37 07/30/20 06:37 Preop Diagnosis: cervical spondylosis with myelopathy Proposed Procedure: Operation Date: 07/30/20 07:00 Proposed Procedures p C 3/4 ACDF w/Neuromonitoring 22023, 07061, 37270, 88885 M47.12(Not Applicable) - Los Hudson, DO Was Beta Estella taken within 24 hours: N/A Last intake: Intake Last Liquid Date 07/29/20 Last Liquid Time 23:00 Last Solid Date 07/29/20 Last Solid Time 23:00 Social: Social History: Tobacco Packs per day: 1 Exam: Pre-Anes Outpt Exam: alert, oriented x 3, clear to auscultation duke aterally and regular rate & rhythm Airway: Submandibular: WNL Cervical ROM: WNL MP: 2 Dentition: False History/ROS: No significant history except as noted and No significant complaints Pulmonary: Pulmonary: COPD, Sleep apnea and SOB CV/HEM: CV/HEM: Afib, Arrythmia, CAD, HTN and ND Hepatic: Hepatic: None reported GI: GI: GERD Metabolic: Metabolic: DM and Thyroid Musc/skel: Musc/skel: OA/DJD Neuropsych: Neuropsych: Neuropathy Anesthetic Plan: ASA status: 3 Anesthesia: Anesthesia Evaluation and General Risk of > 500 ml blood loss (7ml/kg in children): No PFSH Anesthesia PFSH: Medical History Arrhythmia Carpal tunnel syndrome Cervical cancer Chronic back pain Chronic pain COPD (chronic obstructive pulmonary disease) Coronary artery disease Diabetes mellitus Diabetic neuropathy Diastolic heart failure DJD (degenerative joint disease) Encounter for long-term opiate analgesic use Hyperlipidemia Myocardial infarction Obesity Obstructive sleep apnea Opioid contract exists Ovarian cancer Paroxysmal atrial fibrillation Smoker Thyroid disease Surgical History History of angioplasty History of back surgery History of carpal tunnel surgery History of cholecystectomy History of coronary artery stent placement History of hysterectomy History of knee surgery Family History Father No problems noted. Social History Smoking and tobacco status: former smoker Smoking risk assessment/counseling performed?: Yes Alcohol intake: former History of recent travel: No Data Anesthesia Other Labs: Laboratory Results - last 48 hr 07/30/20 06:28 POC Glucose 94 Cardiac Studies: No Data to Display
--- NOTE | 2020-07-30 06:55 | ANES.PREANE2 ---
Pre-Anesthetic Assessment Pre-Anesthetic Assessment: Height/Weight: Height 1.65 m Weight 123.831 kg Temp Pulse Resp BP Pulse Ox 98 F 67 18 110/54 94 07/30/20 06:37 07/30/20 06:37 07/30/20 06:37 07/30/20 06:37 07/30/20 06:37 Preop Diagnosis: cervical spondylosis with myelopathy Proposed Procedure: Operation Date: 07/30/20 07:00 Proposed Procedures p C 3/4 ACDF w/Neuromonitoring 70987, 70483, 45463, 75355 M47.12(Not Applicable) - Los Hudson DO Familial anesthetic complications: None Was Beta Estella taken within 24 hours: N/A Last intake: Intake Last Liquid Date 07/29/20 Last Liquid Time 23:00 Last Solid Date 07/29/20 Last Solid Time 23:00 Social: Social History: Tobacco Exam: Pre-Anes Outpt Exam: alert, oriented x 3, clear to auscultation bilaterally and regular rate & rhythm Airway: Cervical ROM: WNL MP: 4 Dentition: False and Other (dentures) Pulmonary: Pulmonary: COPD CV/HEM: CV/HEM: CAD and MS Comments: paroxysmal a fib - holding rivaroxaban EF 71% Metabolic: Metabolic: DM and Morbid obesity Anesthetic Plan: ASA status: 4 Anesthesia: General Risk of > 500 ml blood loss (7ml/kg in children): No Meds/Allergies Current Medications: Current Medications Generic Name Dose Route Start Last Admin Trade Name Freq PRN Reason Stop Dose Admin Sodium Chloride 1,000 mls @ 30 ml s/hr 07/30/20 06:30 07/30/20 06:53 Sodium Chloride 0.9% IV 07/31/20 06:29 30 mls/hr .Q24H REYES Administration PFSH Anesthesia PFSH: Medical History Arrhythmia Carpal tunnel syndrome Cervical cancer Chronic back pain Chronic pain COPD (chronic obstructive pulmonary disease) Coronary artery disease Diabetes mellitus Diabetic neuropathy Diastolic heart failure DJD (degenerative joint disease) Encounter for long-term opiate analgesic use Hyperlipidemia Myocardial infarction Obesity Obstructive sleep apnea Opioid contract exists Ovarian cancer Paroxysmal atrial fibrillation Smoker Thyroid disease Surgical History History of angioplasty History of back surgery History of carpal tunnel surgery History of cholecystectomy History of coronary artery stent placement History of hysterectomy History of knee surgery Family History Father No problems noted. Social History Smoking and tobacco status: former smoker Smoking risk assessment/counseling performed?: Yes Alcohol intake: former History of recent travel: No Data Anesthesia Other Labs: Laboratory Results - last 48 hr 07/30/20 06:28 POC Glucose 94 Cardiac Studies: No Data to Display
--- NOTE | 2020-07-30 06:55 | W.PM.OPSUD ---
Surgery/Procedure H&P Update DATE OF PROCEDURE: July 30, 2020 DATE H&P PERFORMED: 07/30/20 H&P UPDATE INFORMATION: I have reviewed H&P completed within last 30 days and I have examined patient prior to procedure PREOP DIAGNOSIS: cervical spondylosis with myelopathy PLANNED PROCEDURE: Operation Date: 07/30/20 07:00 Proposed Procedures p C 3/4 ACDF w/Neuromonitoring 40371, 32292, 59401, 28823 M47.12(Not Applicable) - Los Hudson DO
--- NOTE | 2020-07-30 06:56 | PM.HP ---
Providers/Chief Complaint Primary Care Provider: Kannan Contreras Chief Complaint: Cervical spondylosis w/ myeolpathy History of Present Illness This is a new 74 year old female who presents to the clinic today for pain in her neck,buttocks,legs, and hands. She rates her pain 8/10. She states that she uses a walker with a seat on it and is using the clinics wheel chair due to being tired today. She also states that she was discharged from [facility] last week and seems to be doing okay, per patient. Review of Systems Narrative: General ROS: negative for weight changes, fever ENT ROS: negative for nasal congestion, drainage or bleeding, sore throat, dysphagia or ear pain Eyes: PERRL Hematological and Lymphatic ROS: negative for swollen glands or abnormal bleeding Endocrine ROS: negative for polyuria/polydpsia or new changes in weight Respiratory ROS: negative for cough, shortness of breath, or wheezing Cardiovascular ROS: negative for chest pain or dyspnea on exertion Gastrointestinal ROS: negative for reflux, abdominal pain, change in bowel habits, or black or bloody stools Musculoskeletal ROS: negative for back pain, neck pain, or joint pain or swelling except for current problem Neurological ROS: negative for TIA or stoke symptoms Skin: no rashes Medications/Allergies Home Medications Medication Instructions Recorded Confirmed Last Taken Type simvastatin 40 mg tablet 40 mg PO DAILY 30 Days #30 tab 07/20/19 07/30/20 07/29/20 Rx ergocalciferol (vitamin D2) 50,000 unit PO Q7D 08/15/19 07/30/20 07/02/20 History [Vitamin D2] metformin 1,000 mg PO BID 08/15/19 07/30/20 07/29/20 History naproxen 500 mg PO BID PRN 08/15/19 07/30/20 Unknown History spironolactone 25 mg PO BID 08/15/19 07/30/20 07/29/20 History furosemide 40 mg PO DAILY PRN #0 tab 08/18/19 07/30/20 08/15/19 Rx levothyroxine 100 mcg capsule 100 mcg PO DAILY 11/16/19 07/30/20 07/29/20 History rivaroxaban 20 mg tablet 20 mg PO DAILY #90 tab 02/20/20 07/30/20 07/25/20 Rx acetaminophen 325 mg tablet 325 mg PO ONCE PRN tab 05/09/20 07/30/20 Unknown History aspirin 81 mg tablet,delayed 81 mg PO DAILY 05/09/20 07/30/20 07/25/20 History release calcium magnesium zinc 1 tab DIRECTED TID 05/09/20 07/30/20 07/29/20 History fluconazole 150 mg tablet 150 mg PO DAILY PRN 05/09/20 07/30/20 07/29/20 History insulin degludec 100 unit/mL (3 100 unit SUBCUT DAILY 05/09/20 07/30/20 07/29/20 History mL) subcutaneous pen multivitamin 1 tab PO DAILY 05/09/20 07/30/20 07/29/20 History polyethylene glycol 3350 17 17 gm PO DAILY PRN 05/09/20 07/30/20 05/30/20 History gram/dose oral powder trazodone 50 mg tablet 50 mg PO DAILY 05/09/20 07/30/20 07/29/20 History baclofen 10 mg tablet 10 mg PO TID PRN 30 Days #30 tab 05/25/20 07/30/20 07/29/20 Rx oxycodone 5 mg tablet 5 mg PO Q6H PRN 30 Days #120 tab 05/25/20 07/30/20 07/30/20 03:00 Rx pregabalin 300 mg capsule 300 mg PO BID #60 cap 05/25/20 07/30/20 07/29/20 Rx Allergies Allergy/AdvReac Type Severity Reaction Status Date / Time cefuroxime [From Zinacef] Allergy ALGY-Hives Verified 07/30/20 06:23 doxepin Allergy ADR-Nightma Verified 07/30/20 06:23 re PFSH Acute PFSH: Medical History (Updated 07/30/20 @ 06:58 by Los Hudson DO) Arrhythmia Carpal tunnel syndrome Cervical cancer Chronic back pain Chronic pain COPD (chronic obstructive pulmonary disease) Coronary artery disease Diabetes mellitus Diabetic neuropathy Diastolic heart failure DJD (degenerative joint disease) Encounter for long-term opiate analgesic use Hyperlipidemia Myocardial infarction Obesity Obstructive sleep apnea Opioid contract exists Ovarian cancer Paroxysmal atrial fibrillation Smoker Thyroid disease Surgical History History of angioplasty History of back surgery History of carpal tunnel surgery History of cholecystectomy History of coronary artery stent placement History of hysterectomy History of knee surgery Family History Father No problems noted. Social History Smoking and tobacco status: former smoker Smoking risk assessment/counseling performed?: Yes Alcohol intake: former History of recent travel: No Vitals/I&O/Wt Last Vital Signs Temp 98 F 07/30/20 06:37 Pulse 67 07/30/20 06:37 Resp 18 07/30/20 06:37 BP 110/54 07/30/20 06:37 Pulse Ox 94 07/30/20 06:37 Physical Exam Narrative: EXAM NARRATIVE: CONSTITUTIONAL: The patient is a normal appearing [] in no apparent distress. GENERAL: Patient in no acute distress. CARDIAC: Regular rate and rhythm. CHEST: Normal inspiratory effort, normal respiratory rate. ABDOMEN: Soft and nontender. SKIN: Clear, warm and intact. NEURO?PSYCH: The patient is alert and oriented to person, place and time. Sensorv /SILT Motor StrengthShoulder abduction C5 5/5Wrist extension C6 5/5Elbow extension C7 5/5Hand Medical Imaging Director C8 5/5Finger abduction T15/5 Radial/ Ulnar/ Median n intact LowerSensory (SILT)Motor StrengthHin flexion L2/3Ant/inner thigh 5/5Hip adduction L2/3 5/5Knee extension L4 Lat thigh, 5/5Toe dorsiflexion L5 5/5Ankle dorsiflexion L5/ N59Adihlyu flexion S1 5/5 DTRBleeps 2+Triceps 2+Brachioradialis 2+Patellar 2+Achilles 2+ MUSCULOSKELETAL: [] UPPEREXTREMITIES: The patient had full active ROM in fingers, wrist, elbow, and shoulder. The patient demonstrated ability to fully flex/extend/abduct/adduct fingers, make ok sign, cross 2nd/3rd digits, extend 1st digit fully.. Radial pulse 2+, CR<2 seconds. LOWER EXTREMITIES: Pt has full, active ROM of toes, ankle, knee, and hip. Dorsalis pedis/posterior tibialis pulses 2+, CR<2 seconds. SPINE: Skin warm, dry, intact. 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
[2020-07-30] MEDS: clindamycin 900 MG/50 ML PREMIX 100 MG IV (07:31)
[2020-07-30] MEDS: thrombin 5,000 unit SDV 5000 UNIT XX (08:23)
--- NOTE | 2020-07-30 09:53 | PM.OP ---
Operative Report Date of procedure: July 30, 2020 Pre-op Diagnosis: cervical spondylosis with myelopathy Post-op diagnosis: same Procedure Done: 1. Anterior diskectomy C3/4 2. Insertion of cage C3/4 3. Instrumentation with anterior plate from C53-C4 4. Use of allograft Surgeon: Los Hudson Anesthesia: General Estimated blood loss (mL): 10 Condition: stable Disposition: PACU Procedure: 1. Anterior diskectomy C3/4 2. Insertion of cage C3/4 3. Instrumentation with anterior plate from C3-C4 4. Use of allograft Patient is brought to the operative suite placed in the supine position after undergoing anesthesia. Patient had neuro monitoring attached. Patient was then positioned all areas impingement were well-padded. Patient was then prepped and draped normal sterile fashion. Skin incision made over the C3-4 level. This was confirmed under C-arm guidance. The platysmas was split and then blunt dissection was made down to the C3-4 level patient had previous surgery so the scar tissue which was dissected through using Metzenbaums scissors. The disc base was then cleared using Bovie and then retractors were placed. Zeeland pin distractor was inserted and C3-4 levels distracted. Microscope was brought in discectomy was performed using high-speed bur Kerrison and curved curettes. The discectomies brought out medially and laterally foramen were opened and the C4 nerve root was completely freed up. This confirmed using a large curette. The disc was removed completely the posterior osteophytes were taken down as well to ensure that the complete disc was removed. Posterior longitudinal ligament was taken down the dura was in good repair. Wounds were irrigated. And then a size 8 cage was placed in the C3-4 disc base this was packed with osteoamp and is a Jolanta cage. A anterior plate was then placed from C3-C4 2 screws were placed in C3 to screws placed in C4 this confirmed under C-arm guidance prior to this the Zeeland pins were removed. Wounds irrigated and platysmas was closed and then skin was closed with 2-0 Vicryl Monocryl suture and skin glue. Soft dressings were placed and the soft collar was placed and patient was transferred to the PACU
[2020-07-30] MEDS: fentaNYL 50 mcg/mL INJ 2mL IVP ×2 (10:13→10:18)
[2020-07-30] MEDS: HYDROmorphone 1 mg/mL INJ 1 mL 0.2 MG IVP (12:18)
[2020-07-30] MEDS: HYDROcodone-acetaminophen 5-325 mg Tablet 1 TAB PO (12:29)
--- NOTE | 2020-07-30 15:40 | ANE.PACU2 ---
Inpatient post-anesthesia follow up: Airway intact: Yes Vital signs: Temperature 97.7 F Pulse Rate 83 Respiratory Rate 18 Blood Pressure 124/80 Pulse Oximetry 96 Oxygen Delivery Me thod Room Air Oxygen Flow Rate 8 Fraction of Inspir ed Oxygen Hydration adequate: Yes Nausea and vomiting: No Pain level: 4 Mental status: Baseline
== END 2020-07-30 13:48 | disposition home or self-care (01) ==
PROVIDERS: PCP Family Medicine; Visit Provider Orthopaedic Surgery
PROC: 0RB30ZZ Excision of Cervical Vertebral Disc, Open Approach (ICD-10-PCS; CPT 22551; principal; 2020-07-30 07:00)
DX: M47.12 Other spondylosis with myelopathy, cervical region (principal); J44.9 Chronic obstructive pulmonary disease, unspecified; I25.10 Atherosclerotic heart disease of native coronary artery without angina pectoris; I25.2 Old myocardial infarction; E66.01 Morbid (severe) obesity due to excess calories; Z68.42 Body mass index [BMI] 45.0-49.9, adult; E11.40 Type 2 diabetes mellitus with diabetic neuropathy, unspecified; E78.5 Hyperlipidemia, unspecified; G47.33 Obstructive sleep apnea (adult) (pediatric); Z85.43 Personal history of malignant neoplasm of ovary; F17.210 Nicotine dependence, cigarettes, uncomplicated; I48.0 Paroxysmal atrial fibrillation; Z79.4 Long term (current) use of insulin; Z79.891 Long term (current) use of opiate analgesic; G89.29 Other chronic pain; M54.9 Dorsalgia, unspecified
CPT/HCPCS: 20930; 22551; 22845; 22853; 12345; 36416; 72040; 76000; 82962; 93005; 96372; C1713; C9359; J0131; J1100; J1170; J2405; J2704; J3010; J3490; J7030

== ENCOUNTER → 2020-09-11 13:58 | Outpatient (BNVA) | payer MEDICARE, MEDICAID, SELFPAY | PROVIDERS: PCP Family Medicine; Visit Provider Orthopaedic Surgery | DX: Z48.89 Encounter for other specified surgical aftercare (principal); M54.2 Cervicalgia; M54.12 Radiculopathy, cervical region; M47.816 Spondylosis without myelopathy or radiculopathy, lumbar region; M47.12 Other spondylosis with myelopathy, cervical region | CPT/HCPCS: 72040 ==

== ENCOUNTER 2020-10-25 09:44 | Outpatient (CLI) | payer MEDICARE, MEDICAID, SELFPAY ==
--- NOTE | 2020-10-25 09:55 | IR_ITS ---
WS: [id number] Lumbar myelogram, 10/25/2020 Clinical Data: Z98.1 - Arthrodesis status Comparison: None. Fluoroscopy time: 2.1 minutes. Findings: With the usual technique, a 5 inch 22 gauge spinal needle was inserted into the lumbar subarachnoid s pace at L5-S1. The contrast material was hand injected. Approximately 15 mL of 240 mg/mL Omnipaque entered the lumba r subarachnoid space. There was a partial epidural contrast injection. Oblique films demonstrated no intramedullary, intradural or extradural defects. The posterior fusion involving pedicles connecting screws and a transverse band did obscure moderate detail. The patient h ad an L5 laminectomy. Because of the patient's size the lateral films with flexion and extension coul d not be performed. IR/IR myelogram sp lumbar [id number] Impression: Negative lumbar myelogram.
--- NOTE | 2020-10-25 09:55 | CT_ITS ---
WS: [id number] CT of the lumbar spine post myelogram, additional two-dimensional coronal and sagittal imaging was ob tained. 10/25/2020 Clinical Data: Z98.1 - Arthrodesis status Comparison: CT lumbar spine, 04/05/2019. DLP: 2527.[address] scans at [facility] use at least one of these dose optimization techniques: automat ed exposure control; mA and/or kV adjustment per patient size (includes targeted exams where dose is matched to clinical indication); or iterative reconstruction. Findings: There is spinal stenosis at the L2-3 level. The inferior aspect of the L2 vertebral body an d superior anterior aspect of the L3 vertebral body have eroded. There may be an active infection in this area. The L2-L3 level protrudes posteriorly and there is little contrast material at this level . The pedicle screws and connecting rods appear to be intact from L3 through S1. There is an L5 eloisa ectomy. There is a subluxation of L5 on S1 of 0.8 cm Degenerative disc narrowing at L4-L5 and L5-S1 i s seen. T12-L1: No canal stenosis, disc bulge or foraminal narrowing is seen. L1-L2: Minimal posterior osteoarthritic spurring with facet joint arthritis causes mild canal and for aminal stenosis. L2-L3: Posterior osteophyte disc complex along with facet joint arthritis causes severe canal and for aminal narrowing. L3-L4: There is severe osteoarthritis of the facet joints causing foraminal stenosis with slight post erior osteophyte formation L4-L5: There is posterior disc protrusion but with a laminectomy there is no canal stenosis. L5-S1: There is posterior disc and osteophyte impression but the laminectomy prevents canal stenosis. CT/CT lumbar spine w con [id number] Impression: 1. Destruction of the inferior portion of the L2 vertebral body and the anterio r superior portion of the L3 vertebral body with soft tissue density and the pa tient may have an active infection in this area. 2. Extradural narrowing and spinal stenosis at L2-L3. 3. Intact posterior lumbar fusion from L3 through S1 with connecting rods and t ransverse band. 4. Degenerative disc narrowing at multiple levels. 5. Subluxation of L5 on S1 of 0.8 cm. 6. Multilevel osteophyte disc protrusions with multilevel canal and foraminal s tenosis.
[2020-10-25 10:38] LABS: INR 1.08 (0.8-1.2)
[2020-10-25] MEDS: iohexol 240 mg/mL 50 mL Btl INTRATHECA (12:44)
== END 2020-10-25 09:45 | disposition home or self-care (01) ==
LOC: RAD 09:52
PROVIDERS: PCP Family Medicine; Visit Provider Orthopaedic Surgery
DX: Z01.812 Encounter for preprocedural laboratory examination (principal); Z98.1 Arthrodesis status; M48.061 Spinal stenosis, lumbar region without neurogenic claudication; M51.36 Other intervertebral disc degeneration, lumbar region; M47.9 Spondylosis, unspecified
CPT/HCPCS: 36415; 62304; 72120; 72132; 85610

== ENCOUNTER 2021-03-27 08:20 | Day surgery (SDC) | payer MEDICARE, MEDICAID, SELFPAY ==
[2021-03-27 08:14] VITALS: BMI 42.7
--- NOTE | 2021-03-27 08:19 | ECG_ITS ---
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: : 1945 Requested By: Patrick Jimenez Order Number: [id number] Reading MD: TAMELA CONTRERAS Measurements Intervals [place] Rate: 73 P: 49 CO: 198 QRS: 22 QRSD: 91 T: 11 QT: 361 QTc: 399 Interpretive Statements SINUS RHYTHM INDETERMINATE AXIS LOW QRS VOLTAGE IN PRECORDIAL LEADS [QRS DEFLECTION < 1.0 mV IN CHEST LEADS] POSSIBLE ANTERIOR MYOCARDIAL INFARCTION , PROBABLY OLD [30 ms Q WAVE IN V3/V4, OR R < 0.2 mV IN V4] Compared to ECG 07/30/2020 06:56:22 Indeterminate axis now present Myocardial infarct finding still present Electronically Signed On 03-27-2021 19:29:27 CDT by TAMELA CONTRERAS [id number]
[2021-03-27 08:38] LABS: Basophils # 0.1 10^3/uL (0.0-0.1); Eosinophils # 0.2 10^3/uL (0.0-0.8); Hematocrit 36.3 % (37.0-47.0); Hemoglobin 12.1 g/dL (11.5-15.3); Lymphocytes % 17.1 %; Mean Corpuscular HGB Conc 33.3 g/dL (30.0-36.0); Mean Corpuscular Hemoglobin 28.4 pg (28.0-34.0); Mean Corpuscular Volume 85.2 fl (81-99); Mean Platelet Volume 10.7 fL (7.4-10.4); Monocytes # 1.1 10^3/uL (0.2-0.9); Monocytes % 9.3 %; Neutrophils # 8.22 10^3/uL (1.8-7.7); Neutrophils % 70.3 %; Nucleated Red Blood Cells % 0 %; Platelet Count 189 10^3/cmm (130-400); Red Blood Count 4.26 10^6/uL (4.1-5.3); Red Cell Distribution Width 14.9 % (12.1-15.1); White Blood Count 11.7 10^3/uL (4.0-10.0)
[2021-03-27 08:54] LABS: Anion Gap 15.4 (5-19); Blood Urea Nitrogen 14 mg/dL (8-23); Calcium 9.2 mg/dL (8.5-10.5); Carbon Dioxide 26 mmol/L (22-29); Chloride 95 mmol/L (98-107); Glucose 96 mg/dL (65-115); Osmolality Calculated 274 mOsm/kg (285-295); Potassium 4.4 mmol/L (3.5-5.1); Sodium 132 mmol/L (136-145)
--- NOTE | 2021-03-27 16:00 | ANES.PREANE2 ---
Pre-Anesthetic Assessment Pre-Anesthetic Assessment: Height/Weight: Height 1.65 m Weight 116.573 kg Preop Diagnosis: cervical spondylosis with myelopathy Proposed Procedure: Operation Date: 02/06/21 07:00 Proposed Procedures p PSF T10 pelvis 34988 53975 89297 94675 94033(x10) 94609 M40.294(Not Applicable) - Los H Becca, DO s Lumbar Spine Decompression L2/3(Not Applicable) - Los H Becca, DO Operation Date: 04/01/21 07:00 Proposed Procedures p PSF T10 Pelvis 16618 97928 24795 11015 27815(x10) 51932 M40.294(Not Applicable) - Los H Becca, DO s Lumbar Spine Decompression L2/3(Not Applicable) - Los H Becca, DO Was Beta Estella taken within 24 hours: Yes Was Clonidine taken within 24 hours: N/A Social: Social History: Tobacco and No alcohol Exam: Pre-Anes Outpt Exam: alert, oriented x 3 and regular rate & rhythm Airway: Submandibular: WNL Cervical ROM: WNL MP: 2 Dentition: False Pulmonary: Pulmonary: COPD CV/HEM: CV/HEM: CAD (stent), CHF and HTN Metabolic: Metabolic: DM, Hyperlipidemia and Morbid obesity Musc/skel: Musc/skel: Lower Back Pain and OA/DJD Anesthetic Plan: ASA status: 3 Anesthesia: General Risk of > 500 ml blood loss (7ml/kg in children): No PFSH Anesthesia PFSH: Medical History Arrhythmia Carpal tunnel syndrome Cervical cancer Chronic back pain Chronic pain COPD (chronic obstructive pulmonary disease) Coronary artery disease Diabetes mellitus Diabetic neuropathy Diastolic heart failure DJD (degenerative joint disease) Encounter for long-term opiate analgesic use Hyperlipidemia Myocardial infarction Obesity Obstructive sleep apnea Opioid contract exists Ovarian cancer Paroxysmal atrial fibrillation Smoker Thyroid disease Surgical History History of angioplasty History of back surgery History of carpal tunnel surgery History of cholecystectomy History of coronary artery stent placement History of hysterectomy History of knee surgery Family History Father No problems noted. Social History Smoking and tobacco status: current every day smoker Smoking risk assessment/counseling performed?: Yes Alcohol intake: former History of recent travel: No Data Anesthesia CBC & Chem 7: 03/27/21 08:30 03/27/21 08:30 Other Labs: Laboratory Results - last 48 hr 03/27/21 03/27/21 08:30 08:30 WBC 11.7 H RBC 4.26 Hgb 12.1 Hct 36.3 L MCV 85.2 MCH 28.4 MCHC 33.3 RDW 14.9 Plt Count 189 MPV 10.7 H Neut % (Auto) 70.3 Lymph % (Auto) 17.1 [place] % (Auto) 9.3 Eos % (Auto) 2.0 Baso % (Auto) 1.0 Neut # (Auto) 8.22 H Lymph # (Auto) 2.0 [place] # (Auto) 1.1 H Eos # (Auto) 0.2 Baso # (Auto) 0.1 Nucleated RBC % (auto) 0 Nucleated RBCs # 0.0 Sodium 132 L Potassium 4.4 Chloride 95 L Carbon Dioxide 26 Anion Gap 15.4 BUN 14 Creatinine 0.6 GFR Calculation Not Reportable Glucose 96 Calculated Osmolality 274 L Calcium 9.2 Cardiac Studies: No Data to Display
== END 2021-03-27 09:30 | disposition home or self-care (01) ==
LOC: OR 07-15 11:54
PROVIDERS: Anesthesiology; PCP Family Medicine; Visit Provider Orthopaedic Surgery
DX: S32.000A Wedge compression fracture of unspecified lumbar vertebra, initial encounter for closed fracture (principal); X58.XXXA Exposure to other specified factors, initial encounter; Z01.818 Encounter for other preprocedural examination
CPT/HCPCS: 80048; 85025; 93005

== ENCOUNTER 2021-04-02 10:52 | Outpatient (CLI) | payer MEDICARE, MEDICAID, SELFPAY ==
[2021-04-02 11:12] VITALS: BMI 44.2
--- NOTE | 2021-04-02 11:22 | ECG_ITS ---
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 Baseline heart rate was 85 beats per minute. Baseline blood pressure was 135/60 millimeters of mercury. Target heart rate was 147 beats per minute. Maximum heart rate achieved was 138, which was 93 % of the target heart rate. Maximum blood pressure was 149/70 millimeters of mercury. Total infusion time was 7 minutes 45 sec. The reason for ending the test was completion of the protocol. The patient complained of shortness of breath during the stress test, which then resolved at the end of the test. ELECTROCARDIOGRAM: BASELINE: Sinus rhythm, normal axis, old anterior wall myocardial infarction, no significant ST-T changes at the baseline noted. EXERCISE: At the peak exercise level, no significant ST-T changes suggestive of ischemia noted. RECOVERY: During the recovery period, heart rate dropped appropriately. No significant ST-T changes in the recovery suggestive of ischemia noted. CONCLUSION: 1. Heart rate response was appropriate. 2. Blood pressure response was appropriate. 3. Symptoms not suggestive of ischemia. 4. Electrocardiogram portion of the dobutamine stress test was not suggestive of ischemia. 5. Nuclear scan will be documented separately. Electronically Signed On 04-02-2021 18:59:23 CDT by SOPHIE CONRTERAS [id number]
--- NOTE | 2021-04-02 12:06 | USCV_ITS ---
Emerald Uriostegui Age: 75 Gender: F : 1945 Exam Date: 04/02/2021 12:32 Ordering Phys: Sophie Arcos MD ([email or web address]) Technologist: Gama Guajardo [place] [facility] [place]: Rhythm: Sinus Patient History: HTN, DM, DLD, COPD, Chronic back pain, Heart failure, CO, Obesity, BERNADINE, Angioplasty, Smoking Cardiac Medications: Metoprolol, Aspirin, Fenofibrate, Insulin, Simvastatin Medications in past 24 hours: None Contrast: Optison Total Dose (mL): Stress Results Protocol: Pharmacologic Peak Dose (???g/kg/min): 30 Duration (min:sec): 7:45 Atropine:(mg) Target HR: 125 Double Product: Resting HR: 85 Resting BP: 135 / 60 Peak HR: 138 Peak BP: 149 / 73 Max Predicted HR: 147 94 % Max Predicted HR Stress Summary: The hemodynamic response to stress was normal. The patient's target heart rate was achieved. BP Response: Normal Reason for Termination: The patients target heart rate was achieved Cardiac Symptoms: None ECG Analysis Resting EKG: Stress EKG: Arrhythmia: MEASUREMENTS (Male/Female) Normal Values FINDINGS At rest: Normal left ventricle ejection fraction estimated ejection fraction around 60%. No wall motion abnormality At mid and peak dobutamine dose level: Good augmentation of left ventricle cavity, no wall motion abnormality. Recovery.: No wall motion abnormality. CONCLUSIONS Echocardiographic portion of the dobutamine stress test was not suggestive of ischemia. EKG segment will be documented separately. Sophie Arcos MD (Electronically Signed) Final Date: 03 April 2021 16:40 S
[2021-04-02] MEDS: DOBUTtamine 200 MG in sodium chloride 0.9% 34 ML 18 MG IV (12:34)
[2021-04-02 12:44] VITALS: BP 101/61; PULSE 99
== END 2021-04-02 10:53 | disposition home or self-care (01) ==
PROVIDERS: PCP Family Medicine; Visit Provider Internal Medicine Cardiovascular Disease
DX: I25.10 Atherosclerotic heart disease of native coronary artery without angina pectoris (principal); R07.9 Chest pain, unspecified
CPT/HCPCS: 93017; 93350; 93352; J1250; J7050

== ENCOUNTER → 2021-05-23 11:53 | Outpatient (BNVA) | payer MEDICARE, MEDICAID, SELFPAY | PROVIDERS: PCP Family Medicine; Visit Provider Orthopaedic Surgery | DX: Z01.818 Encounter for other preprocedural examination (principal); Z20.822 Contact with and (suspected) exposure to COVID-19 | CPT/HCPCS: 87635 ==

== ENCOUNTER 2021-05-27 16:00 | Inpatient (IN) | payer MEDICARE, MEDICAID, SELFPAY ==
[2021-05-23 10:03] VITALS: BMI 41.5
--- NOTE | 2021-05-23 10:47 | ECG_ITS ---
[facility] Test Date: 2021-05-23 Pat Name: Emerald Uriostegui Department: Room: Gender: Female Flat Cutter: : 1945 Requested By: Luciana Ingram Order Number: [id number] Saurav MD: Amelie Cochran M.D. Measurements Intervals [place] Rate: 65 P: 26 [place]: 175 QRS: 129 QRSD: 84 T: 47 QT: 382 QTc: 397 Interpretive Statements SINUS RHYTHM INDETERMINATE AXIS LOW QRS VOLTAGE IN PRECORDIAL LEADS [QRS DEFLECTION < 1.0 mV IN CHEST LEADS] PATTERN CONSISTENT WITH PULMONARY DISEASE POSSIBLE RIGHT VENTRICULAR CONDUCTION DELAY [RSR (QR) IN V1/V2] Compared to ECG 03/27/2021 08:32:20 Myocardial infarct finding no longer present Electronically Signed On 05-23-2021 22:43:07 PROTEIN SCIENTIST by Amelie Cochran M.D. [id number]
[2021-05-23 11:13] LABS: Basophils # 0.1 10^3/uL (0.0-0.1); Basophils % 1.6 %; Eosinophils # 0.6 10^3/uL (0.0-0.8); Eosinophils % 7.3 %; Hematocrit 38.4 % (37.0-47.0); Hemoglobin 12.9 g/dL (11.5-15.3); Lymphocytes # 2.3 10^3/uL (0.8-4.8); Mean Corpuscular HGB Conc 33.6 g/dL (30.0-36.0); Mean Corpuscular Hemoglobin 27.7 pg (28.0-34.0); Mean Corpuscular Volume 82.4 fl (81-99); Mean Platelet Volume 10.7 fL (7.4-10.4); Monocytes # 0.7 10^3/uL (0.2-0.9); Monocytes % 8.5 %; Neutrophils # 4.17 10^3/uL (1.8-7.7); Neutrophils % 51.4 %; Nucleated Red Blood Cells % 0 %; Platelet Count 214 10^3/cmm (130-400); Red Blood Count 4.66 10^6/uL (4.1-5.3); Red Cell Distribution Width 15.1 % (12.1-15.1); White Blood Count 8.1 10^3/uL (4.0-10.0)
[2021-05-23 11:35] LABS: Alanine Aminotransferase 7 U/L (0-33); Alkaline Phosphatase 35 IU/L (35-105); Anion Gap 17.1 (5-19); Aspartate Amino Transferase 13 U/L (0-32); Blood Urea Nitrogen 24 mg/dL (8-23); Calcium 9.8 mg/dL (8.5-10.5); Carbon Dioxide 24 mmol/L (22-29); Chloride 91 mmol/L (98-107); Globulin 3.1 g/dL (1.3-4.6); Glucose 72 mg/dL (65-115); Osmolality Calculated 269 mOsm/kg (285-295); Potassium 4.1 mmol/L (3.5-5.1); Sodium 128 mmol/L (136-145); Total Bilirubin 0.4 mg/dL (0.15-1.2); Total Protein 7.1 g/dL (6.6-8.7)
--- NOTE | 2021-05-23 11:59 | P.ANESASSM_ITS ---
Pre-Anesthetic Assessment Pre-Anesthetic Assessment: Height/Weight: Height 1.63 m Weight 109.769 kg Preop Diagnosis: cervical spondylosis with myelopathy Proposed Procedure: Operation Date: 05/27/21 07:00 Proposed Procedures p PSF T10 ? pelvis w decompression to L2/3 12690, 50044, 54823, 16201 62112(x10),10853 M40.294(Not Applicable) - Los H Becca, DO s Lumbar Spine Decompression L2/3(Not Applicable) - Los H Becca, DO Was Beta Estella taken within 24 hours: Yes Was Clonidine taken within 24 hours: N/A Social: Social History: Tobacco Exam: Pre-Anes Outpt Exam: alert, oriented x 3, clear to auscultation bilaterally and regular rate & rhythm Airway: Submandibular: WNL Cervical ROM: Other (Limited) MP: 3 Dentition: False CV/HEM: CV/HEM: Afib, CAD (Stents), HTN and TN Comments: Stress echo 03/2021: EF 60%, negative for ischemia. Metabolic: Metabolic: DM, Hyperlipidemia and Morbid obesity Musc/skel: Musc/skel: Lower Back Pain and OA/DJD Anesthetic Plan: ASA status: 3 Anesthesia: Anesthesia Evaluation and General Other: 2 large PIVs, arterial line. Ok with blood transfusion if necessary. Also discussed possibility of central line for access if unable to obtain adequate PIV access. Risk of > 500 ml blood loss (7ml/kg in children): Yes, adequate IV access and fluids planned PFSH Anesthesia PFSH: Medical History Arrhythmia Carpal tunnel syndrome Cervical cancer Chronic back pain Chronic pain COPD (chronic obstructive pulmonary disease) Coronary artery disease Diabetes mellitus Diabetic neuropathy Diastolic heart failure DJD (degenerative joint disease) Encounter for long-term opiate analgesic use Hyperlipidemia Myocardial infarction Obesity Obstructive sleep apnea Opioid contract exists Ovarian cancer Paroxysmal atrial fibrillation Smoker Thyroid disease Surgical History History of angioplasty History of back surgery History of carpal tunnel surgery History of cholecystectomy History of coronary artery stent placement History of hysterectomy History of knee surgery Family History Father No problems noted. Social History Smoking and tobacco status: current every day smoker Smoking risk assessment/counseling performed?: Yes Alcohol intake: former History of recent travel: No Data Anesthesia CBC & Chem 7: 05/23/21 10:52 05/23/21 10:52 Other Labs: Laboratory Results - last 48 hr 05/23/21 05/23/21 10:52 10:52 WBC 8.1 RBC 4.66 Hgb 12.9 Hct 38.4 MCV 82.4 MCH 27.7 L MCHC 33.6 RDW 15.1 Plt Count 214 MPV 10.7 H Neut % (Auto) 51.4 Lymph % (Auto) 28.0 [place] % (Auto) 8.5 Eos % (Auto) 7.3 Baso % (Auto) 1.6 Neut # (Auto) 4.17 Lymph # (Auto) 2.3 [place] # (Auto) 0.7 Eos # (Auto) 0.6 Baso # (Auto) 0.1 Nucleated RBC % (auto) 0 Nucleated RBCs # 0.0 Sodium 128 L Potassium 4.1 Chloride 91 L Carbon Dioxide 24 Anion Gap 17.1 BUN 24 H Creatinine 0.7 GFR Calculation Not Reportable Glucose 72 Calculated Osmolality 269 L Calcium 9.8 Total Bilirubin 0.4 AST 13 ALT 7 Alkaline Phosphatase 35 Total Protein 7.1 Albumin 4.0 Globulin 3.1 Cardiac Studies: No Data to Display
[2021-05-27] VITALS (23 sets, daily range): BP systolic 78–141; BP diastolic 42–80; PULSE 70–112; RESP 12–23; TEMP 36.1–37.1; O2SAT 92–98
--- NOTE | 2021-05-27 | SCC_ITS ---
Procedure Done: 1. T10 - pelvis fusion 2. T10 - S1 instrumentation 3. Lumbo pelvic instrumentation 4. Laminectomy L2 with partial facetectomies 5. Laminectomy L3 with partial facetectomies 6. computer navigation/ stereotactic of the spine 7. Bone marrow aspirate right iliac crest through separate incision 8. allograft 9. autograft 10. removal of hardware from spine 7 seconds of fluoroscopic guidance, for a cumulative dose of 125.9 mGy, was provided to Dr. Hudson by the radiology department. C-arm images of the lumbar spine were saved for the patient's permanent record. [facility]
--- NOTE | 2021-05-27 | XR_ITS ---
WS: [id number] Exam: XR lumbar spine 2-3V* [id number] Date/Time of Exam: 05/27/2021 12:00 AM Reason For Exam: or pic, lumbar fusion. AP and lateral C-arm images of the lower thoracic, lumbar and upper sacral spine are submitted for ev aluation. Soria rods and pedicle screws extend from T10 to S2. Screws also bridge the right and left SI joints. The hardware appears to be in appropriate position without complication. This apparen tly represents hardware revision compared to previous lumbar myelogram images performed 10/25/2020.
[2021-05-27 07:31] LABS: Glucose Point of Care 97 mg/dL (70-110)
[2021-05-27] MEDS: sodium chloride 0.9% 1,000 ML 30 ML IV (07:39)
--- NOTE | 2021-05-27 08:11 | PM.HP ---
Providers/Chief Complaint Primary Care Provider: Kannan Contreras Chief Complaint: psf History of Present Illness Emerald Uriostegui is a 75 year old female progressive back pain and tingling in her legs. She has weakness and is stuck in a wheelchair. At this point patient CT shows that she has collapse above her previous fusion. Review of Systems Narrative: General ROS: negative for weight changes, fever ENT ROS: negative for nasal congestion, drainage or bleeding, sore throat, dysphagia or ear pain Eyes: PERRL Hematological and Lymphatic ROS: negative for swollen glands or abnormal bleeding Endocrine ROS: negative for polyuria/polydpsia or new changes in weight Respiratory ROS: negative for cough, shortness of breath, or wheezing Cardiovascular ROS: negative for chest pain or dyspnea on exertion Gastrointestinal ROS: negative for reflux, abdominal pain, change in bowel habits, or black or bloody stools Musculoskeletal ROS: negative for back pain, neck pain, or joint pain or swelling except for current problem Neurological ROS: negative for TIA or stoke symptoms Skin: no rashes Medications/Allergies Home Medications Medication Instructions Recorded Confirmed Last Taken Type metformin 1,000 mg PO BID 08/15/19 05/27/21 05/26/21 History spironolactone 25 mg PO BID 08/15/19 05/27/21 05/26/21 History furosemide 40 mg PO DAILY PRN #0 tab 08/18/19 05/27/21 05/26/21 Rx levothyroxine 100 mcg capsule 125 mcg PO DAILY 11/16/19 05/27/21 05/26/21 History rivaroxaban 20 mg tablet 20 mg PO DAILY #90 tab 02/20/20 05/27/21 05/22/21 Rx acetaminophen 325 mg tablet 325 mg PO Q4-5H PRN tab 05/09/20 05/27/21 05/26/21 History aspirin 81 mg tablet,delayed 81 mg PO DAILY 05/09/20 05/27/21 05/24/21 History release pregabalin 300 mg capsule 300 mg PO BID #60 cap 05/25/20 05/27/21 05/26/21 Rx ascorbic acid (vitamin C) [Vitamin 500 mg PO DAILY 03/27/21 05/27/21 05/26/21 History C] baclofen 5 mg PO BIDWMEAL 03/27/21 05/27/21 05/26/21 History baclofen 10 mg PO DAILY 03/27/21 05/27/21 05/26/21 History fenofibrate 160 mg PO DAILY 03/27/21 05/27/21 05/26/21 History insulin degludec [Tresiba 52 unit SUBCUT DAILY 03/27/21 05/27/21 05/26/21 History FlexTouch U-100] magnesium oxide 250 mg PO DAILY 03/27/21 05/27/21 05/26/21 History metoprolol tartrate 25 mg PO DAILY 03/27/21 05/27/21 05/26/21 History omega 8-gqg-zbl-fish oil [Fish Oil] 2 cap PO DAILY 03/27/21 05/27/21 05/26/21 History pregabalin 300 mg PO BID 03/27/21 05/27/21 05/26/21 History simvastatin 40 mg PO DAILY 03/27/21 05/27/21 05/26/21 History Allergies Allergy/AdvReac Type Severity Reaction Status Date / Time cefuroxime [From Zinacef] Allergy ALGY-Hives Verified 04/02/21 11:26 doxepin Allergy ADR-Nightma Verified 04/02/21 11:26 re PFSH Acute PFSH: Medical History (Updated 05/27/21 @ 08:12 by Los Hudson DO) Arrhythmia Carpal tunnel syndrome Cervical cancer Chronic back pain Chronic pain COPD (chronic obstructive pulmonary disease) Coronary artery disease Diabetes mellitus Diabetic neuropathy Diastolic heart failure DJD (degenerative joint disease) Encounter for long-term opiate analgesic use Hyperlipidemia Myocardial infarction Obesity Obstructive sleep apnea Opioid contract exists Ovarian cancer Paroxysmal atrial fibrillation Smoker Thyroid disease Surgical History History of angioplasty History of back surgery History of carpal tunnel surgery History of cholecystectomy History of coronary artery stent placement History of hysterectomy History of knee surgery Family History Father No problems noted. Social History Smoking and tobacco status: current every day smoker Smoking risk assessment/counseling performed?: Yes Alcohol intake: former History of recent travel: No Vitals/I&O/Wt Last Vital Signs Temp 97 F L 05/27/21 06:55 Pulse 70 05/27/21 06:55 Resp 18 05/27/21 06:55 BP 141/72 05/27/21 06:55 Pulse Ox 93 05/27/21 06:55 Physical Exam Narrative: EXAM NARRATIVE: CONSTITUTIONAL: The patient is a normal appearing [] in no apparent distress. GENERAL: Patient in no acute distress. CARDIAC: Regular rate and rhythm. CHEST: Normal inspiratory effort, normal respiratory rate. ABDOMEN: Soft and nontender. SKIN: Clear, warm and intact. NEURO?PSYCH: The patient is alert and oriented to person, place and time. Sensorv /SILT Motor StrengthShoulder abduction C5 5/5Wrist extension C6 5/5Elbow extension C7 5/5Hand Stoker Erector And Servicer C8 5/5Finger abduction T15/5 Radial/ Ulnar/ Median n intact LowerSensory (SILT)Motor StrengthHin flexion L2/3Ant/inner thigh 5/5Hip adduction L2/3 5/5Knee extension L4 Lat thigh, 5/5Toe dorsiflexion L5 5/5Ankle dorsiflexion L5/ X31Vatslgg flexion S1 5/5 DTRBleeps 2+Triceps 2+Brachioradialis 2+Patellar 2+Achilles 2+ MUSCULOSKELETAL: [] UPPEREXTREMITIES: The patient had full active ROM in fingers, wrist, elbow, and shoulder. The patient demonstrated ability to fully flex/extend/abduct/adduct fingers, make ok sign, cross 2nd/3rd digits, extend 1st digit fully.. Radial pulse 2+, CR<2 seconds. LOWER EXTREMITIES: Pt has full, active ROM of toes, ankle, knee, and hip. Dorsalis pedis/posterior tibialis pulses 2+, CR<2 seconds. SPINE: Skin warm, dry, intact. Data : 05/23/21 10:52 05/23/21 10:52 A&P Assessment and plan (1) Lumbar stenosis with neurogenic claudication: and failed back surgery T10 to pelvis Status: Acute Attestations Medical Necessity Statement*: failed conservative t Coding Level of Care Code Acute Small Piece Cutter for Chg Fwd Diagnoses Lumbar stenosis with neurogenic claudication M48.062
[2021-05-27] MEDS: fentaNYL 50 mcg/mL INJ 2mL IVP (08:23)
--- NOTE | 2021-05-27 09:33 | P.ANESUD_ITS ---
Pre-Anesthetic Update Pre-Anesthetic Assessment: Date of Surgery/Procedure: 05/27/21 Preop Nivia gnosis: compression fracture; failed back surgery Proposed Procedure: Operation Date: 05/27/21 10:10 Proposed Procedures p PSF T10 ? pelvis w decompression to L2/3 70655, 50897, 15593, 46324 64700(x10),85160 M40.294(Not Applicable) - Los H Becca, DO s Lumbar Spine Decompression L2/3(Not Applicable) - Los H Becca, DO Any changes to Pre-Anesthetic Assessment?: No Last Intake: Intake Last Liquid Date 05/26/21 Last Liquid Time 23:59 Last Solid Date 05/26/21 Last Solid Time 18:30 Labs Last 48hrs: Laboratory Results - last 48 hr 05/27/21 07:28 POC Glucose 97 Vitals: Temperature 97 F L 05/27/21 06:55 Temperature Source Temporal Artery S can 05/27/21 06:55 Pulse Rate 70 05/27/21 06:55 Respiratory Rate 20 H 05/27/21 08:23 Respiratory Effort 05/27/21 08:23 Respiratory Depth Normal 05/27/21 08:23 Respiratory Patter n 05/27/21 08:23 Blood Pressure 141/72 05/27/21 06:55 Blood Pressure Sintia n 95 05/27/21 06:55 Pulse Oximetry 94 05/27/21 08:23 Oxygen Delivery Me thod 05/27/21 07:00 Exam: Pre-Anes Outpt Exam: alert, oriented x 3, clear to auscultation bilaterally and regular rate & rhythm Cardiac Studies: No Data to Display
--- NOTE | 2021-05-27 09:33 | PC.NURSE ---
pt depend changed. haylie area and buttocks are raw. pt states they have been putting a white cream on it at the alf.
[2021-05-27] MEDS: clindamycin 900 MG/50 ML PREMIX 100 MG IV ×2 (11:45→21:11)
--- NOTE | 2021-05-27 12:09 | ANES.PROC ---
Anesthesia Procedures Procedure/Date: 05/27/21 Arterial Line: Time Out Performed: Yes Consent: requested by attending/covering physician Size (Gauge): 20 Technique Used: guide wire technique Post-Procedure: dry sterile dressing placed Patient Tolerated Procedure: well and no complications Complications: none Site: right and radial
[2021-05-27] MEDS: heparin, porcine 1,000 unit/mL INJ 10 mL 10000 UNIT XX (13:07)
[2021-05-27] MEDS: vancomycin 1,000 MG SDV 2000 MG XX (15:13)
--- NOTE | 2021-05-27 15:55 | P.OP_ITS ---
Operative Report Date of procedure: May 27, 2021 Pre-op Diagnosis: compression fracture; failed back surgery; lumbar stenosis with neurogenic Pre-op Diagnosis: claudication Post-op diagnosis: same Procedure Done: 1. T10 - pelvis fusion 2. T10 - S1 instrumentation 3. Lumbo pelvic instrumentation 4. Laminectomy L2 with partial facetectomies 5. Laminectomy L3 with partial facetectomies 6. computer navigation/ stereotactic of the spine 7. Bone marrow aspirate right iliac crest through separate incision 8. allograft 9. autograft 10. removal of hardware from spine Surgeon: Los Hudson Anesthesia: General Estimated blood loss (mL): 500 Condition: stable Disposition: PACU Procedure: 1. T10 - pelvis fusion 2. T10 - S1 instrumentation 3. Lumbo pelvic instrumentation 4. Laminectomy L2 with partial facetectomies 5. Laminectomy L3 with partial facetectomies 6. computer navigation/ stereotactic of the spine 7. Bone marrow aspirate right iliac crest through separate incision 8. allograft 9. autograft 10. removal of hardware from spine Patient is brought to the operative patient is brought to the operative suite placed in the prone position. All areas impingement were well-padded. After undergoing anesthesia. Patient was prepped and draped in normal sterile fashion. Skin incision is made over the T10 to the S1 level. Subperiosteal dissection was made out to the transverse processes of T10 down to L5 bilat erally. And then out to the sacral ala bilaterally. The previous hardware from L3-S1 was identified. Once the hardware was identified the screw caps were removed followed by the tita followed by the cross-link once the rods were removed and attention brought to removing screws. Because of the compression and degeneration that was occurring at the L3 level I kept the L3 screws out. When I took L4 and L5 screws out they were replaced with 7.5 Jolanta screws. The S1 screw on the left was removed. And replaced and then the right S1 was attempted removed however the screw was broken. Next attention was brought to getting the bone marrow aspirate from the right iliac crest. This was done by placing the [employer] bone marrow aspiration kit through the fascia on the right side. Into the iliac crest followed by the blunt probe followed by the aspirator. 20 cc were aspirated from the right iliac crest. This was then mixed with the ostium of bone graft. Next attention was placed to placing the fiducial into the right iliac crest. The fiducial was attached and then the pins were placed into the right iliac crest. The fiducials attached and linked to the computer. And then the C-arm was brought in and spun around and the information from the serum was linked into the computer. In order to facilitate using computer navigation stereotactic for the spine. Next attention was brought to placing the iliac screws. This was done by starting on the sacral ala in line with the S1 screws. Going from the ala into the SI joint into the iliac crest. These were 80 mm screws. And then attention was brought to placing screws at [id number] and L1 bilaterally. L2 was skipped because of the amount of degeneration and compression. After the screws were placed attention was then brought to performing the laminectomy at L2 and L3. The L2 laminectomy was performed first this was done by using the high-speed bur curettes Kerrison rongeurs taken down the ligamentum flavum and the lamina. Been taking the medial aspect of the facet joint of L2-3 bilaterally. Using again this high-speed bur and Kerrison rongeurs. And this was then brought down to the L3-4 facet. This is where the scarring began and decompression was taken in order to free up these nerves at these levels. Once the decompressions of L2 in 3 levels were felt to be adequately decompressed attention was then brought to connecting the rods from T10 down to the iliac screws. This was done by placing the rods into the tulips and then the end caps were placed. Once the rods were locked in position C-arm was brought in to confirm that screws in bones were in the appropriate position. Is brought to decorticating the transverse processes and the lateral gutters. And the lamina. OsteoMed bone graft was packed with autograft and the bone marrow aspirate into the gutters and along the laminectomy from T10 all the down to the sacral ala once this was completed then vancomycin powder was placed a d rain was placed deep this is a Hemovac drain and the wound was closed in layered fashion with 0 Vicryl 2-0 Vicryl and nylon suture. Sterile dressings applied and patient is transferred to the PACU in stable condition.
--- NOTE | 2021-05-27 16:46 | SUR.PHASEI ---
PT DRAIN EMPTIED OF 75ML ON ADMIT, PT AWAKES TO VOICE, BUT QUICKLY BACK TO SLEEP VSS. ART LINE TO RT WRIST SECURED, IV TO LT HAND PATENT DRESSING D/I BILAT SCDS ON PT, APONTE TO DD 1630 PT AWAKE , BP LOWER DR SAPP AT [facility] ORDERS RECIEVED IV BOLUS IN PROGRESS HOB FLAT FOR LOWER BP 1640 DR SAPP CALLED BP NOW 76/40 ART LINE BP IN 70?S ALSO.
--- NOTE | 2021-05-27 16:54 | SUR.PHASEI ---
PT CARE ASSUMED BY Vladislav VEE RN, PT AWAKE AND MOANING BUT DOES NOT RESPOND VERBALLY.
--- NOTE | 2021-05-27 16:57 | PM.CONSULT ---
Providers/Reason For Consult Consulting Physician/Specialty*: Internal medicine Reason for Consult*: Medical comorbidities Attending Physician: Los Hudson DO Primary Care Provider: Kannan Contreras History of Present Illness History of Present Illness Emerald Uriostegui is a 75 year old female with past medical history of diastolic heart failure, paroxysmal A. fib, recent dobutamine stress echocardiogram showing EF of 60% without suggestion of ischemia, hypertension was admitted under orthopedic service today and underwent T10 to pelvis fusion. Internal medicine service was requested for comanagement of medical problems. Patient was seen postoperatively. She is in considerable pain. Postoperatively patient's blood pressure running in low 80s systolics. Patient denies any dizziness. Denies any nausea vomiting, headache. Denies any chest pain currently. At baseline patient states she is usually bedbound and wheelchair-bound because of back pain. Denies any chest pain at rest or on minimal exertion. Denies any palpitations. States her blood pressures and blood sugars are monitored at retirement are usually stable. No blood work from today in the system. Review of Systems General: Reports: 10 or more systems reviewed and unremarkable except in HPI and below Const: Denies: fever(s), chills, body aches, change in appetite, change in weight, malaise, night sweats, diaphoresis, change in sleep pattern, daytime sleepiness or snoring Eyes: Denies: change in vision, blurry vision, photophobia, eye discomfort or eye discharge ENMT: Denies: throat pain, enlarged tonsils, hoarseness, mouth pain, oral sores, dry mouth, tinnitus, nasal congestion or post nasal drip Card: Denies: chest pain, palpitations, irregular heart rhythm, edema, swelling of feet/ankles, lightheadedness, syncope, pre-syncope, dyspnea on exertion, orthopnea, leg pain with exertion or acrocyanosis Resp: Denies: dyspnea, productive cough, non-productive cough, wheezing, stridor, pain on inspiration, change in phlegm color, hemoptysis or chest congestion GI: Denies: abdominal pain, nausea, vomiting, hematemesis, coffee ground emesis, dysphagia, heartburn, diarrhea, constipation, bloating, GI cramping, change in bowel habits, pain on defecation, hematochezia or melena : Denies: flank pain, dysuria, urinary frequency, urinary urgency, urinary hesitancy, nocturia or hematuria Musc: Denies: neck pain, back pain, extremity pain, joint pain, joint swelling, joint redness, joint stiffness or limited range of motion Neuro: Denies: headache(s), numbness in extremities, weakness in extremities, sensory changes, lack of coordination, difficulty walking, frequent falls, dizziness, vertigo, confusion, Slurred speech present, difficulty communicating thoughts or seizure-like activity Psych: Denies: anxiety, depression, mood swings, panic attacks, hopelessness or irritability Endo: Denies: polyuria, polydipsia, tired all the time, cold intolerance, excessive sweating, flushing or heat intolerance Avinash/Lymph: Denies: easy bruising or easy bleeding All/Imm: Denies: tongue swelling, facial swelling or acute wheezing Meds/Allergies Home Medications and Allergies Home Medications Medication Instructions Recorded Confirmed Last Taken Type metformin 1,000 mg PO BID 08/15/19 05/27/21 05/26/21 History spironolactone 25 mg PO BID 08/15/19 05/27/21 05/26/21 History furosemide 40 mg PO DAILY PRN #0 tab 08/18/19 05/27/21 05/26/21 Rx levothyroxine 100 mcg capsule 125 mcg PO DAILY 11/16/19 05/27/21 05/26/21 History rivaroxaban 20 mg tablet 20 mg PO DAILY #90 tab 02/20/20 05/27/21 05/22/21 Rx acetaminophen 325 mg tablet 325 mg PO Q4-5H PRN tab 05/09/20 05/27/21 05/26/21 History aspirin 81 mg tablet,delayed 81 mg PO DAILY 05/09/20 05/27/21 05/24/21 History release pregabalin 300 mg capsule 300 mg PO BID #60 cap 05/25/20 05/27/21 05/26/21 Rx ascorbic acid (vitamin C) [Vitamin 500 mg PO DAILY 03/27/21 05/27/21 05/26/21 History C] baclofen 5 mg PO BIDWMEAL 03/27/21 05/27/21 05/26/21 History baclofen 10 mg PO DAILY 03/27/21 05/27/21 05/26/21 History fenofibrate 160 mg PO DAILY 03/27/21 05/27/2105/26/21 History insulin degludec [Tresiba 52 unit SUBCUT DAILY 03/27/21 05/27/21 05/26/21 History FlexTouch U-100] magnesium oxide 250 mg PO DAILY 03/27/21 05/27/21 05/26/21 History metoprolol tartrate 25 mg PO DAILY 03/27/21 05/27/21 05/26/21 History omega [id number]-fish oil [Fish Oil] 2 cap PO DAILY 03/27/21 05/27/21 05/26/21 History pregabalin 300 mg PO BID 03/27/21 05/27/21 05/26/21 History simvastatin 40 mg PO DAILY 03/27/21 05/27/21 05/26/21 History Robitussin 10 ml PO BEDTIME PRN 05/27/21 05/27/21 Unknown History oxycodone-acetaminophen 1 tab PO Q4-5H PRN 05/27/21 05/27/21 Unknown History ropinirole 0.5 mg PO BEDTIME 05/27/21 05/27/21 05/26/21 History sennosides [Senna Soft] 15 mg PO DAILY 05/27/21 05/27/21 05/26/21 History Allergies Allergy/AdvReac Type Severity Reaction Status Date / Time cefuroxime [From Zinacef] Allergy ALGY-Hives Verified 04/02/21 11:26 doxepin Allergy ADR-Nightma Verified 04/02/21 11:26 re Current Medications Current Medications Generic Name Dose Route Start Last Admin Trade Name Freq PRN Reason Stop Dose Admin Fentanyl 50 mcg 05/27/21 06:54 05/27/21 08:23 Fentanyl 50 Mcg/Ml Inj 2ml IVP 50 mcg Q10M PRN Administration Preop Pain Sodium Chloride 1,000 mls @ 30 mls/hr 05/27/21 07:00 05/27/21 07:39 Sodium Chloride 0.9% IV 05/28/21 06:59 30 mls/hr .Q24H REYES Administration PFSH Acute PFSH: Medical History (Updated 05/27/21 @ 22:16 by Donald Georges MD) Arrhythmia Carpal tunnel syndrome Cervical cancer Chronic back pain Chronic pain COPD (chronic obstructive pulmonary disease) Coronary artery disease Diabetes mellitus Diabetic neuropathy Diastolic heart failure DJD (degenerative joint disease) Encounter for long-term opiate analgesic use Hyperlipidemia Myocardial infarction Obesity Obstructive sleep apnea Opioid contract exists Ovarian cancer Paroxysmal atrial fibrillation Smoker Thyroid disease Surgical History History of angioplasty History of back surgery History of carpal tunnel surgery History of cholecystectomy History of coronary artery stent placement History of hysterectomy History of knee surgery Family History Father No problems noted. Social History Smoking and tobacco status: current every day smoker Smoking risk assessment/counseling performed?: Yes Alcohol intake: former History of recent travel: No Vitals/I&O/Wt Last Vital Signs Temp 97.3 F L 05/27/21 16:16 Pulse 96 05/27/21 16:45 Resp 18 05/27/21 16:45 BP 78/63 05/27/21 16:45 Pulse Ox 92 05/27/21 16:45 05/27/21 05/27/21 05/27/21 06:59 14:59 22:59 Intake Total 50 / 50 1300 / 1350 Output Total 1570 / 1570 Balance 50 / 50 -270 / -220 Physical Exam Narrative: EXAM NARRATIVE: EXAM NARRATIVE: General: Drowsy, acute distress because of pain, on 2 L nasal cannula, morbidly obese HEENT: PERRLA, pupils bilaterally equal and reactive Chest: Bilateral bronchial breath sounds, fine crackles present bilateral lower zones CVS: S1-S2 regular, no murmurs, no tachycardia, no gallops, no rubs Abdomen: Soft, nontender, no organomegaly, bowel sounds present, morbidly obese Neuro: No focal deficits, no facial deformity, AO x3, A&P Assessment and plan (1) Encounter for postoperative care: Anticoagulation: Physical therapy, perioperative diabetic antibiotics as per primary team. We will monitor hemoglobin and transfuse accordingly. Status: Acute (2) Lumbar stenosis with neurogenic claudication: Status: Acute (3) Coronary artery disease: No active chest pain. Recent dobutamine stress echo ordered appreciated. Check HbA1c, lipid panel. Continue home dose of statin, fenofibrate, aspirin. For now hold off on metoprolol given soft postoperative blood pressures. Will restart as per blood pressures tomorrow morning. Status: Acute Qualifiers: Associated angina: without angina Coronary Disease-Associated Artery/Lesion type: [place] artery [place] vs. transplanted heart: [place] heart Qualified Code(s): I25.10 - Atherosclerotic heart disease of [place] coronary artery without angina pectoris (4) Diastolic heart failure: Euvolemic. Continue to monitor volume status daily. Hold off on any fluids for now. Restart oral diet as soon as possible. Status: Acute Qualifiers: Heart failure chronicity: chronic Qualified Code(s): I50.32 - Chronic diastolic (congestive) heart failure (5) Paroxysmal atrial fibrillation: Rate controlled. Hold off on metoprolol given borderline blood pressures postoperatively. Will restart in a.m. depending on vitals. Status: Acute (6) Diabetes mellitus: Check HbA1c. Hold off on OHA's. Diabetic cardiac diet. Insulin sliding scale at moderate dose protocol. Continue home dose of long-acting insulin 52 units daily. Status: Acute Additional A&P Information History of COPD History of arthritis. Check CBC, CMP, chest x-ray, magnesium, proBNP, iron panel, HbA1c, lipid panel, TSH. Full code. Diet as per primary team. Anticoagulation as per primary team. Thank you for involving us in care of Ms. Uriostegui. Please call with any questions. Consult Attestations Medical Necessity Statement: As per primary team. Time Spent in Patient Care: Greater than 35 minutes (>than 50% of time spent in counselling and/or direct pt care on unit). Procedures Arterial Line Size (Gauge): 20 Coding Level of Care Code Acute Kiss Machine Operator for Roldan Winters Diagnoses Encounter for postoperative care Z48.89 Lumbar stenosis with neurogenic claudication M48.062 Coronary artery disease I25.10 Associated angina: without angina Coronary Disease-Associated Artery/Lesion type: [place] artery [place] vs. transplanted heart: [place] heart Diastolic heart failure I50.32 Heart failure chronicity: chronic Paroxysmal atrial fibrillation I48.0 Diabetes mellitus E11.9
--- NOTE | 2021-05-27 17:00 | XR_ITS ---
WS: [id number] Exam: XR chest 1V portable [id number] Date/Time of Exam: 05/27/2021 5:22 PM Reason For Exam: post op Comparison to 09/30/2019. Bibasal plaque atelectasis. The lungs are fully expanded. No pleural effusions. Chronically elevated right diaphragm. Normal cardiomediastinal silhouette. Bony structures are intact. Plate and screw fix ation of the lower cervical spine. XR/XR chest 1V portable [id number] IMPRESSION: 1. Bibasal plaque atelectasis. No acute cardiopulmonary finding. 2. Chronically elevated right diaphragm. 3. There is hardware in the lower cervical spine. There are also Y. Soria rods and pedicle screws partially visualized in the lower thoracic spine.
[2021-05-27] MEDS: albumin 12.5 GM/250 ML VIAL IV (17:10)
[2021-05-27] MEDS: calcium chloride 10% Syr 10 mL 1 GM IVP (17:20)
[2021-05-27] MEDS: HYDROmorphone 1 mg/mL INJ 1 mL 0.5 MG IVP ×2 (17:20→17:30)
[2021-05-27 17:36] LABS: Basophils # 0.1 10^3/uL (0.0-0.1); Basophils % 0.6 %; Eosinophils % 0.3 %; Hematocrit 25.2 % (37.0-47.0); Hemoglobin 8.1 g/dL (11.5-15.3); Lymphocytes # 0.8 10^3/uL (0.8-4.8); Lymphocytes % 7.2 %; Mean Corpuscular HGB Conc 32.1 g/dL (30.0-36.0); Mean Corpuscular Hemoglobin 28.1 pg (28.0-34.0); Mean Corpuscular Volume 87.5 fl (81-99); Mean Platelet Volume 10.3 fL (7.4-10.4); Monocytes # 0.4 10^3/uL (0.2-0.9); Monocytes % 3.2 %; Neutrophils # 9.91 10^3/uL (1.8-7.7); Neutrophils % 85.3 %; Nucleated Red Blood Cells % 0 %; Platelet Count 178 10^3/cmm (130-400); Red Blood Count 2.88 10^6/uL (4.1-5.3); Red Cell Distribution Width 15.5 % (12.1-15.1); White Blood Count 11.6 10^3/uL (4.0-10.0)
[2021-05-27 18:10] LABS: NT Pro B Type Natriuretic Pept 189 pg/mL (0-125); Procalcitonin 0.06 ng/mL (0-0.5)
[2021-05-27 18:13] LABS: Thyroid Stimulating Hormone 2.81 uIU/mL (0.27-4.20)
[2021-05-27 18:25] LABS: Alanine Aminotransferase 6 U/L (0-33); Albumin Level 3.2 g/dL (3.5-5.2); Alkaline Phosphatase 24 IU/L (35-105); Anion Gap 17.7 (5-19); Aspartate Amino Transferase 15 U/L (0-32); Blood Urea Nitrogen 20 mg/dL (8-23); Calcium 9.8 mg/dL (8.5-10.5); Carbon Dioxide 19 mmol/L (22-29); Chloride 106 mmol/L (98-107); Globulin 1.8 g/dL (1.3-4.6); Glucose 159 mg/dL (65-115); Iron 55 ug/dL (37-145); Osmolality Calculated 292 mOsm/kg (285-295); Percent Saturation 23.6 % (20-50); Potassium 4.7 mmol/L (3.5-5.1); Sodium 138 mmol/L (136-145); Total Bilirubin 0.3 mg/dL (0.15-1.2); Total Iron Binding Capacity 233 mcg/dl; Unsaturated Iron Binding 178 ug/dL (112-347)
[2021-05-27] MEDS: ketorolac 30 mg/mL INJ IVP (21:07)
[2021-05-27] MEDS: docusate sodium 100 mg Capsule PO (21:10)
[2021-05-27] MEDS: ropinirole 1 mg Tablet 0.5 MG PO (21:10)
[2021-05-27] MEDS: lactated ringers 1,000 ML 90 ML IV (21:11)
[2021-05-27 22:25] LABS: Glucose Point of Care 153 mg/dL (70-110)
[2021-05-27] MEDS: HYDROcodone-acetaminophen 5-325 mg Tablet PO (22:37)
[2021-05-27] MEDS: insulin lispro 100 unit/1 mL SUBCUT (22:38)
[2021-05-28] VITALS (15 sets, daily range): BP systolic 66–110; BP diastolic 37–69; PULSE 74–104; RESP 16–20; TEMP 36.6–37.2; O2SAT 93–96; BMI 44.2
[2021-05-28] MEDS: clindamycin 900 MG/50 ML PREMIX 100 MG IV ×3 (03:16→21:53)
[2021-05-28] MEDS: HYDROcodone-acetaminophen 5-325 mg Tablet PO ×3 (04:37→16:30)
[2021-05-28] MEDS: morphine 4 mg/mL SDV 1 mL 2 MG IVP (06:16)
[2021-05-28 06:55] LABS: Glucose Point of Care 120 mg/dL (70-110)
[2021-05-28 07:04] LABS: Basophils % 0.3 %; Hematocrit 21.7 % (37.0-47.0); Lymphocytes # 1.7 10^3/uL (0.8-4.8); Lymphocytes % 19.5 %; Mean Corpuscular HGB Conc 32.3 g/dL (30.0-36.0); Mean Corpuscular Hemoglobin 27.6 pg (28.0-34.0); Mean Corpuscular Volume 85.4 fl (81-99); Mean Platelet Volume 10.4 fL (7.4-10.4); Monocytes # 0.9 10^3/uL (0.2-0.9); Monocytes % 10.5 %; Neutrophils # 5.71 10^3/uL (1.8-7.7); Neutrophils % 66.2 %; Nucleated Red Blood Cells % 0 %; Platelet Count 178 10^3/cmm (130-400); Red Blood Count 2.54 10^6/uL (4.1-5.3); Red Cell Distribution Width 15.9 % (12.1-15.1); White Blood Count 8.6 10^3/uL (4.0-10.0)
[2021-05-28 07:25] LABS: Alanine Aminotransferase 6 U/L (0-33); Albumin Level 3.2 g/dL (3.5-5.2); Alkaline Phosphatase 23 IU/L (35-105); Anion Gap 17.5 (5-19); Aspartate Amino Transferase 15 U/L (0-32); Blood Urea Nitrogen 23 mg/dL (8-23); Calcium 8.8 mg/dL (8.5-10.5); Carbon Dioxide 20 mmol/L (22-29); Chloride 103 mmol/L (98-107); Globulin 2.2 g/dL (1.3-4.6); Glucose 101 mg/dL (65-115); Osmolality Calculated 286 mOsm/kg (285-295); Potassium 4.5 mmol/L (3.5-5.1); Sodium 136 mmol/L (136-145); Total Bilirubin 0.3 mg/dL (0.15-1.2); Total Protein 5.4 g/dL (6.6-8.7)
[2021-05-28 07:30] LABS: Chol HDL Ratio 4.42 mg/dL (0.0-4.40); Cholesterol 84 mg/dL (0-200); HDL Cholesterol 19 mg/dL (60-100); LDL Cholesterol Calculated 20 mg/dL (50-129); Triglycerides 225 mg/dL (0-150); VLDL Cholestrol Calculation 45 mg/dL (0-30)
--- NOTE | 2021-05-28 07:57 | PM.PN ---
Subjective Subjective: Interval history: continued pain Vitals/I&O/Wt Last Vital Signs Temp 98.1 F 05/28/21 07:30 Pulse 104 H 05/28/21 07:30 Resp 17 05/28/21 07:30 BP 90/57 05/28/21 07:30 Pulse Ox 96 05/28/21 07:30 05/27/21 05/28/21 05/28/21 22:59 06:59 14:59 Intake Total 1720 / 1770 50 / 1820 Output Total 1570 / 1570 790 / 2360 Balance 150 / 200 -740 / -540 Weight last 48 hrs Weight 258 lb Physical Exam Narrative: EXAM NARRATIVE: pateint laying in bed complaining of pain Data : 05/28/21 06:45 05/28/21 06:45 A&P Assessment and plan (1) Encounter for postoperative care: POD#1 T10 - Pelvis fusion adjust pain meds d/c drain Status: Acute Attestations Medical Necessity Statement*: pain control Procedures Arterial Line Size (Gauge): 20 Coding Level of Care Code Acute Pharmacy Affairs Assistant for Roldan Fwgissel Diagnoses Encounter for postoperative care Z48.89
[2021-05-28] MEDS: pregabalin 150 mg Capsule 300 MG PO ×2 (09:20→17:26)
[2021-05-28] MEDS: sennosides 8.6 mg Tablet 17.2 MG PO (09:20)
[2021-05-28] MEDS: ascorbic acid 500 mg Tablet PO (09:22)
[2021-05-28] MEDS: levothyroxine 125 mcg Tablet PO (09:22)
[2021-05-28] MEDS: rivaroxaban 10 mg Tablet 20 MG PO (09:22)
[2021-05-28] MEDS: docusate sodium 100 mg Capsule PO ×2 (09:22→17:26)
[2021-05-28] MEDS: atorvastatin 40 mg Tablet 20 MG PO (09:22)
[2021-05-28] MEDS: omega-3 fatty acids 1,000 mg Capsule 2000 MG PO (09:22)
[2021-05-28] MEDS: aspirin 81 mg EC Tablet PO (09:22)
[2021-05-28] MEDS: lactated ringers 1,000 ML 90 ML IV (09:40)
--- NOTE | 2021-05-28 11:00 | PC.NURSE ---
IV INFILTRATION IV in left hand infiltrated edema noted on the back of hand. IV discontinued in left hand and restarted in left forearm.
[2021-05-28 12:12] LABS: Glucose Point of Care 129 mg/dL (70-110)
[2021-05-28 12:57] LABS: Estmated Average Glucose 94; Hemoglobin A1C 4.9 % (4.0-6.0)
--- NOTE | 2021-05-28 14:50 | P.PN_ITS ---
Subjective Subjective: Interval history: No acute events overnight. Patient continues to have pain. Denies any nausea vomiting, headache. Laying flat in bed with minimal difficulty in breathing which as per the patient is at baseline. Saturating more than 90% on room air. Blood pressure is better today. Drainage present. Vitals/I&O/Wt Last Vital Signs Temp 97.9 F 05/28/21 12:00 Pulse 92 05/28/21 12:00 Resp 16 05/28/21 12:00 BP 80/48 05/28/21 12:00 Pulse Ox 95 05/28/21 12:00 05/27/21 05/28/21 05/28/21 22:59 06:59 14:59 Intake Total 1720 / 1770 50 / 1820 2579.5 / 2579.5 Output Total 1570 / 1570 790 / 2360 Balance 150 / 200 -740 / -540 2579.5 / 2579.5 Weight last 48 hrs Weight 117.027 kg Physical Exam Narrative: EXAM NARRATIVE: EXAM NARRATIVE: General: Drowsy, acute distress because of pain, morbidly obese HEENT: PERRLA, pupils bilaterally equal and reactive Chest: Bilateral bronchial breath sounds, fine crackles present bilateral lower zones CVS: S1-S2 regular, no murmurs, no tachycardia, no gallops, no rubs Abdomen: Soft, nontender, no organomegaly, bowel sounds present, morbidly obese Neuro: No focal deficits, no facial deformity, AO x3, Data : 05/28/21 06:45 05/28/21 06:45 A&P Assessment and plan (1) Encounter for postoperative care: Anticoagulation, physical therapy, perioperative antibiotics as per primary team. We will monitor hemoglobin and transfuse accordingly. Status: Acute (2) Lumbar stenosis with neurogenic claudication: Status: Acute (3) Coronary artery disease: No active chest pain. Recent dobutamine stress echo ordered appreciated. A1c 4.9, lipid panel appreciated Continue home dose of statin, fenofibrate, aspirin. Restart home dose of metoprolol. Status: Acute Qualifiers: Coronary Disease-Associated Artery/Lesion type: [place] artery [place] vs. transplanted heart: [place] heart Associated angina: without angina Qualified Code(s): I25.10 - Atherosclerotic heart disease of [place] coronary artery without angina pectoris (4) Diastolic heart failure: Euvolemic. Continue to monitor volume status daily. Stop IV fluids. Currently running at 90 cc/h. Status: Acute Qualifiers: Heart failure chronicity: chronic Qualified Code(s): I50.32 - Chronic diastolic (congestive) heart failure (5) Paroxysmal atrial fibrillation: Rate controlled. Restart metoprolol at 25 mg daily. Status: Acute (6) Diabetes mellitus: Check HbA1c. Hold off on OHA's. Diabetic cardiac diet. Insulin sliding scale at moderate dose protocol. Continue home dose of long-acting insulin 52 units daily. Status: Acute Additional A&P Information History of COPD History of arthritis. Anemia: Hemoglobin 7 today. Most likely postoperative status. Transfuse 1 unit of PRBC. Iron panel appreciated. Start on oral iron supplementation. Full code. Diet as per primary team. Started on Xarelto as per primary team. Thank you for involving us in care of Ms. Uriostegui. Please call with any questions. Attestations Medical Necessity Statement*: Pain control, postoperative anemia as per primary team. Time Spent in Patient Care: Greater than 35 minutes (>than 50% of time spent in counselling and/or direct pt care on unit) . Procedures Arterial Line Size (Gauge): 20 Coding Level of Care Code Acute Brick Or Block Maker for Roldan Winetrs Diagnoses Encounter for postoperative care Z48.89 Lumbar stenosis with neurogenic claudication M48.062 Coronary artery disease I25.10 Coronary Disease-Associated Artery/Lesion type: [place] artery [place] vs. transplanted heart: [place] heart Associated angina: without angina Diastolic heart failure I50.32 Heart failure chronicity: chronic Paroxysmal atrial fibrillation I48.0 Diabetes mellitus E11.9
[2021-05-28] MEDS: sodium chloride 0.9% (100 ml) 100 ML 20 ML (17:26)
[2021-05-28 17:28] LABS: Glucose Point of Care 120 mg/dL (70-110)
[2021-05-28 20:51] LABS: Glucose Point of Care 132 mg/dL (70-110)
[2021-05-28] MEDS: HYDROcodone-acetaminophen 5-325 mg Tablet 1 TAB PO (21:53)
[2021-05-28] MEDS: ropinirole 1 mg Tablet 0.5 MG PO (21:53)
[2021-05-28] MEDS: baclofen 10 mg Tablet PO (21:54)
[2021-05-29] VITALS (14 sets, daily range): BP systolic 83–108; BP diastolic 50–66; PULSE 71–90; RESP 16–20; TEMP 36.3–37.2; O2SAT 91–96
[2021-05-29] MEDS: acetaminophen 325 mg Tablet 650 MG PO (00:21)
[2021-05-29] MEDS: ketorolac 30 mg/mL INJ IVP ×3 (00:21→22:11)
[2021-05-29] MEDS: clindamycin 900 MG/50 ML PREMIX 100 MG IV ×2 (04:56→12:10)
[2021-05-29] MEDS: HYDROcodone-acetaminophen 5-325 mg Tablet 1 TAB PO ×4 (04:58→18:18)
--- NOTE | 2021-05-29 05:02 | PC.NURSE ---
PAIN NOTE: THE PATIENT HAS EXHIBITED SIGNIFICANT PAIN THROUGHOUT THE SHIFT. IT HAS BEEN HARD TO CONTROL, BECAUSE HER BLOOD PRESSURES HAVE BEEN AND REMAIN LOW. THE PATIENT HAS HAD NORCO X2 OF NOW, TORADOL X1, AND TYLENOL X1. THE TORADOL SEEMED TO AID IN PAIN CONTROL MOST EFFECTIVELY. THE PATIENT IS FREQUENTLY ON HER CALL LIGHT ASKING FOR ASSISTANCE WITH REPOSITIONING. SHE IS DOING SO 2-3 TIMES AN HOUR. WHEN ASKED IF THIS IS IN RELATION TO PAIN, THE PATIENT ISN'T ABLE TO CLEARLY DECIDE. THE PATIENT HAS BEEN REPOSITIONED FREQUENTLY AND NEEDED.
[2021-05-29 05:28] LABS: Basophils # 0.1 10^3/uL (0.0-0.1); Basophils % 0.9 %; Eosinophils # 0.1 10^3/uL (0.0-0.8); Eosinophils % 1.2 %; Hematocrit 21.4 % (37.0-47.0); Hemoglobin 6.9 g/dL (11.5-15.3); Lymphocytes # 1.8 10^3/uL (0.8-4.8); Mean Corpuscular HGB Conc 32.2 g/dL (30.0-36.0); Mean Corpuscular Hemoglobin 28.4 pg (28.0-34.0); Mean Corpuscular Volume 88.1 fl (81-99); Mean Platelet Volume 10.6 fL (7.4-10.4); Monocytes # 0.7 10^3/uL (0.2-0.9); Monocytes % 10.7 %; Neutrophils # 3.89 10^3/uL (1.8-7.7); Neutrophils % 57.6 %; Nucleated Red Blood Cells % 0 %; Platelet Count 135 10^3/cmm (130-400); Red Blood Count 2.43 10^6/uL (4.1-5.3); Red Cell Distribution Width 15.5 % (12.1-15.1); White Blood Count 6.7 10^3/uL (4.0-10.0)
[2021-05-29 06:31] LABS: Glucose Point of Care 112 mg/dL (70-110)
--- NOTE | 2021-05-29 09:13 | P.PN_ITS ---
Subjective Subjective: Interval history: pain better controlled today Vitals/I&O/Wt Last Vital Signs Temp 97.5 F L 05/29/21 07:30 Pulse 82 05/29/21 07:30 Resp 17 05/29/21 07:30 BP 95/51 05/29/21 07:30 Pulse Ox 93 05/29/21 07:30 05/28/21 05/29/21 05/29/21 22:59 06:59 14:59 Intake Total 630 / 3209.5 50 / 3259.5 Output Total 595 / 595 350 / 945 Balance 35 / 2614.5 -300 / 2314.5 Weight last 48 hrs Weight 258 lb Physical Exam Narrative: EXAM NARRATIVE: laying in bed Data : 05/29/21 05:03 05/28/21 06:45 A&P Assessment and plan (1) Encounter for postoperative care: POD #2 T10 - pelvis Up with PT d/ c hemovac drain d/c planning need Hb higher may need more PRBCs Status: Acute Attestations Medical Necessity Statement*: pain control, low Hb, need PT, need to d/c ke[place] Procedures Arterial Line Size (Gauge): 20 Coding Level of Care Code Acute Mess Attendant Crew for Chg Fwd Diagnoses Encounter for postoperative care Z48.89
[2021-05-29] MEDS: ascorbic acid 500 mg Tablet PO (09:29)
[2021-05-29] MEDS: pregabalin 150 mg Capsule 300 MG PO ×2 (09:29→17:45)
[2021-05-29] MEDS: aspirin 81 mg EC Tablet PO (09:29)
[2021-05-29] MEDS: omega-3 fatty acids 1,000 mg Capsule 2000 MG PO (09:30)
[2021-05-29] MEDS: atorvastatin 40 mg Tablet 20 MG PO (09:30)
[2021-05-29] MEDS: levothyroxine 125 mcg Tablet PO (09:30)
[2021-05-29] MEDS: sennosides 8.6 mg Tablet 17.2 MG PO (09:30)
[2021-05-29] MEDS: docusate sodium 100 mg Capsule PO ×2 (09:30→17:45)
[2021-05-29 11:36] LABS: Glucose Point of Care 127 mg/dL (70-110)
--- NOTE | 2021-05-29 14:51 | PM.PN ---
Subjective Subjective: Interval history: No acute events overnight. Hemoglobin again down to 6.9 today. States pain is little better. Denies any nausea vomiting, headache, dizziness. Drain removed as per orthopedics team today. Patient's blood pressure continues to remain borderline normal. Left arm blood pressure is better than right arm. We will continue to check blood pressures in left arm. Urine output appropriate. Vitals/I&O/Wt Last Vital Signs Temp 98.3 F 05/29/21 12:59 Pulse 76 05/29/21 13:50 Resp 18 05/29/21 12:59 BP 91/55 05/29/21 12:59 Pulse Ox 94 05/29/21 12:59 05/28/21 05/29/21 05/29/21 22:59 06:59 14:59 Intake Total 630 / 3209.5 50 / 3259.5 650 / 650 Output Total 595 / 595 350 / 945 Balance 35 / 2614.5 -300 / 2314.5 650 / 650 Weight last 48 hrs Weight 117.027 kg Physical Exam Narrative: EXAM NARRATIVE: EXAM NARRATIVE: General: Drowsy, acute distress because of pain, morbidly obese HEENT: PERRLA, pupils bilaterally equal and reactive Chest: Bilateral bronchial breath sounds, fine crackles present bilateral lower zones CVS: S1-S2 regular, no murmurs, no tachycardia, no gallops, no rubs Abdomen: Soft, nontender, no organomegaly, bowel sounds present, morbidly obese Neuro: No focal deficits, no facial deformity, AO x3, Data : 05/29/21 05:03 05/28/21 06:45 A&P Assessment and plan (1) Encounter for postoperative care: Anticoagulation, physical therapy, perioperative antibiotics as per primary team. We will monitor hemoglobin and transfuse accordingly. Status: Acute (2) Lumbar stenosis with neurogenic claudication: Status: Acute (3) Coronary artery disease: No active chest pain. Recent dobutamine stress echo ordered appreciated. A1c 4.9, lipid panel appreciated Continue home dose of statin, fenofibrate, aspirin. Restart home dose of metoprolol once blood pressure is better.. Status: Acute Qualifiers: Coronary Disease-Associated Artery/Lesion type: [place] artery [place] vs. transplanted heart: [place] heart Associated angina: without angina Qualified Code(s): I25.10 - Atherosclerotic heart disease of [place] coronary artery without angina pectoris (4) Diastolic heart failure: Euvolemic. Continue to monitor volume status daily. Status: Acute Qualifiers: Heart failure chronicity: chronic Qualified Code(s): I50.32 - Chronic diastolic (congestive) heart failure (5) Paroxysmal atrial fibrillation: Rate controlled. Restart metoprolol at 25 mg daily once blood pressure is better.. Status: Acute (6) Diabetes mellitus: Diabetic cardiac diet. Insulin sliding scale at moderate dose protocol. For now hold off on home dose of long-acting insulin 52 units daily. Status: Acute Additional A&P Information History of COPD History of arthritis. Anemia: Post monitor blood transfusion. Hemoglobin down to 6.9 again today. Minimal drain as per nursing staff. Repeat 1 more unit of blood transfusion today. Repeat hemoglobin 2 hours post transfusion. Continue oral iron supplementation. Stool for occult blood. Hold off on Xarelto. Full code. Diet as per primary team. Hold off Xarelto because of persistent anemia requiring blood transfusion. SCDs. Thank you for involving us in care of Ms. Uriostegui. Please call with any questions. Attestations Medical Necessity Statement*: As per primary team, Persistent severe anemia requiring blood transfusion Time Spent in Patient Care: Greater than 35 minutes (>than 50% of time spent in counselling and/or direct pt care on unit). Procedures Arterial Line Size (Gauge): 20 Coding Level of Care Code Acute Asl Interpreter for Roldan Winters Diagnoses Encounter for postoperative care Z48.89 Lumbar stenosis with neurogenic claudication M48.062 Coronary artery disease I25.10 Coronary Disease-Associated Artery/Lesion type: [place] artery [place] vs. transplanted heart: [place] heart Associated angina: without angina Diastolic heart failure I50.32 Heart failure chronicity: chronic Paroxysmal atrial fibrillation I48.0 Diabetes mellitus E11.9
[2021-05-29 15:59] LABS: Hematocrit 24.7 % (37.0-47.0); Hemoglobin 8.1 g/dL (11.5-15.3)
[2021-05-29] MEDS: ferrous gluconate 324 mg Tablet PO (17:45)
[2021-05-29 17:50] LABS: Glucose Point of Care 119 mg/dL (70-110)
[2021-05-29 21:18] LABS: Glucose Point of Care 125 mg/dL (70-110)
[2021-05-29] MEDS: ropinirole 1 mg Tablet 0.5 MG PO (22:09)
[2021-05-29] MEDS: baclofen 10 mg Tablet PO (22:10)
[2021-05-29] MEDS: magnesium hydroxide 30 mL UDC PO (22:10)
[2021-05-29] MEDS: morphine 4 mg/mL SDV 1 mL 2 MG IVP (22:11)
[2021-05-29] MEDS: ondansetron 2 mg/ML SDV 2 mL 4 MG IVP (22:12)
[2021-05-30] VITALS (8 sets, daily range): BP systolic 84–107; BP diastolic 52–66; PULSE 72–88; RESP 14–20; TEMP 36.4–37.2; O2SAT 91–92
[2021-05-30 02:47] LABS: Basophils # 0.1 10^3/uL (0.0-0.1); Basophils % 0.9 %; Eosinophils # 0.2 10^3/uL (0.0-0.8); Eosinophils % 3.2 %; Hematocrit 24.2 % (37.0-47.0); Lymphocytes # 1.9 10^3/uL (0.8-4.8); Lymphocytes % 28.7 %; Mean Corpuscular HGB Conc 33.1 g/dL (30.0-36.0); Mean Corpuscular Hemoglobin 28.7 pg (28.0-34.0); Mean Corpuscular Volume 86.7 fl (81-99); Mean Platelet Volume 10.5 fL (7.4-10.4); Monocytes # 0.6 10^3/uL (0.2-0.9); Monocytes % 9.6 %; Neutrophils # 3.55 10^3/uL (1.8-7.7); Neutrophils % 54.4 %; Nucleated Red Blood Cells % 0.3 %; Platelet Count 142 10^3/cmm (130-400); Red Blood Count 2.79 10^6/uL (4.1-5.3); Red Cell Distribution Width 15.1 % (12.1-15.1); White Blood Count 6.5 10^3/uL (4.0-10.0)
[2021-05-30] MEDS: oxyCODONE 5 mg IR Tab/Cap 10 MG PO ×2 (02:50→13:36)
[2021-05-30] MEDS: clindamycin 900 MG/50 ML PREMIX 100 MG IV ×2 (02:50→12:58)
[2021-05-30 03:13] LABS: Alanine Aminotransferase 6 U/L (0-33); Albumin Level 2.8 g/dL (3.5-5.2); Alkaline Phosphatase 27 IU/L (35-105); Anion Gap 14.9 (5-19); Aspartate Amino Transferase 14 U/L (0-32); Blood Urea Nitrogen 17 mg/dL (8-23); Calcium 7.9 mg/dL (8.5-10.5); Carbon Dioxide 20 mmol/L (22-29); Chloride 105 mmol/L (98-107); Globulin 2.3 g/dL (1.3-4.6); Glucose 91 mg/dL (65-115); Osmolality Calculated 283 mOsm/kg (285-295); Potassium 3.9 mmol/L (3.5-5.1); Sodium 136 mmol/L (136-145); Total Bilirubin 0.5 mg/dL (0.15-1.2); Total Protein 5.1 g/dL (6.6-8.7)
[2021-05-30 06:56] LABS: Glucose Point of Care 104 mg/dL (70-110)
--- NOTE | 2021-05-30 07:53 | P.PN_ITS ---
Subjective Subjective: Interval history: pt resting in bed comfortably Vitals/I&O/Wt Last Vital Signs Temp 98.9 F 05/30/21 04:00 Pulse 72 05/30/21 04:00 Resp 18 05/30/21 04:00 BP 105/64 05/30/21 04:00 Pulse Ox 92 05/30/21 04:00 05/29/21 05/30/21 05/30/21 22:59 06:59 14:59 Intake Total 720 / 1370 530 / 1900 Balance 720 / 1370 530 / 1900 Physical Exam Narrative: EXAM NARRATIVE: resting in bed Data : 05/30/21 02:25 05/30/21 02:25 A&P Assessment and plan (1) Encounter for postoperative care: d/c planning up with PT d/c lakhwinder if not chronic Status: Acute Attestations Medical Necessity Statement*: ok to d/c Procedures Arterial Line Size (Gauge): 20 Coding Level of Care Code Acute Dictating Transcribing Machine Servicer for Roldan Fwgissel Diagnoses Encounter for postoperative care Z48.89
[2021-05-30] MEDS: baclofen 10 mg Tablet 5 MG PO ×2 (08:05→16:58)
[2021-05-30] MEDS: HYDROcodone-acetaminophen 5-325 mg Tablet 1 TAB PO ×2 (08:05→16:59)
[2021-05-30] MEDS: levothyroxine 125 mcg Tablet PO (08:06)
[2021-05-30] MEDS: sennosides 8.6 mg Tablet 17.2 MG PO (08:06)
[2021-05-30] MEDS: pregabalin 150 mg Capsule 300 MG PO (08:06)
[2021-05-30] MEDS: aspirin 81 mg EC Tablet PO (08:07)
[2021-05-30] MEDS: docusate sodium 100 mg Capsule PO (08:07)
[2021-05-30] MEDS: ascorbic acid 500 mg Tablet PO (08:07)
[2021-05-30] MEDS: omega-3 fatty acids 1,000 mg Capsule 2000 MG PO (08:07)
[2021-05-30] MEDS: ferrous gluconate 324 mg Tablet PO (08:08)
[2021-05-30] MEDS: atorvastatin 40 mg Tablet 20 MG PO (08:08)
[2021-05-30] MEDS: magnesium hydroxide 30 mL UDC PO (08:10)
--- NOTE | 2021-05-30 10:59 | P.PN_ITS ---
Subjective Subjective: Interval history: No acute events overnight. Required 1 more unit of blood transfusion yesterday. Hemoglobin stable. States pain is better. Has remained hemodynamically stable. Plan for discharge as per primary team today. Vitals/I&O/Wt Last Vital Signs Temp 97.6 F 05/30/21 08:00 Pulse 86 05/30/21 08:00 Resp 20 H 05/30/21 08:00 BP 98/61 05/30/21 08:00 Pulse Ox 91 05/30/21 08:00 05/29/21 05/30/21 05/30/21 22:59 06:59 14:59 Intake Total 720 / 1370 530 / 1900 Balance 720 / 1370 530 / 1900 Physical Exam Narrative: EXAM NARRATIVE: EXAM NARRATIVE: General: Drowsy, acute distress because of pain, morbidly obese HEENT: PERRLA, pupils bilaterally equal and reactive Chest: Bilateral bronchial breath sounds, fine crackles present bilateral lower zones CVS: S1-S2 regular, no murmurs, no tachycardia, no gallops, no rubs Abdomen: Soft, nontender, no organomegaly, bowel sounds present, morbidly obese Neuro: No focal deficits, no facial deformity, AO x3, Data : 05/30/21 02:25 05/30/21 02:25 A&P Assessment and plan (1) Encounter for postoperative care: Anticoagulation, physical therapy, perioperative antibiotics as per primary team. We will monitor hemoglobin and transfuse accordingly. Status: Acute (2) Lumbar stenosis with neurogenic claudication: Status: Acute (3) Coronary artery disease: No active chest pain. Recent dobutamine stress echo ordered appreciated. A1c 4.9, lipid panel appreciated Continue home dose of statin, fenofibrate, aspirin. Restart home dose of met oprolol once blood pressure is better.. Status: Acute Qualifiers: Associated angina: without angina Coronary Disease-Associated Artery/Lesion type: [place] artery [place] vs. transplanted heart: [place] heart Qualified Code(s): I25.10 - Atherosclerotic heart disease of [place] coronary artery without angina pectoris (4) Diastolic heart failure: Euvolemic. Continue to monitor volume status daily. Status: Acute Qualifiers: Heart failure chronicity: chronic Qualified Code(s): I50.32 - Chronic diastolic (congestive) heart failure (5) Paroxysmal atrial fibrillation: Rate controlled. Restart metoprolol at 25 mg daily once blood pressure is better.. Status: Acute (6) Diabetes mellitus: Diabetic cardiac diet. Insulin sliding scale at moderate dose protocol. For now hold off on home dose of long-acting insulin 52 units daily. Status: Acute Additional A&P Information History of COPD History of arthritis. Anemia: Post monitor blood transfusion. Hemoglobin down to 6.9 again today. Minimal drain as per nursing staff. Repeat 1 more unit of blood transfusion today. Repeat hemoglobin 2 hours post transfusion. Continue oral iron supplementation. Stool for occult blood. Hold off on Xarelto. Full code. Diet as per primary team. Hold off Xarelto because of persistent anemia requiring blood transfusion. SCDs. On discharge hold Xarelto for next 48 hours. Recheck hemoglobin after 48 hours of initiation of Xarelto. Follow-up with a primary care provider within next 1 week of discharge. Thank you for involving us in care of Ms. Uriostegui. Please call with any questions . Attestations Medical Necessity Statement*: As per primary team. Time Spent in Patient Care: 16 - 35 minutes Procedures Arterial Line Size (Gauge): 20 Coding Level of Care Code Acute Front Counter Attendant for [facility] Diagnoses Encounter for postoperative care Z48.89 Lumbar stenosis with neurogenic claudication M48.062 Coronary artery disease I25.10 Associated angina: without angina Coronary Disease-Associated Artery/Lesion type: [place] artery [place] vs. transplanted heart: [place] heart Diastolic heart failure I50.32 Heart failure chronicity: chronic Paroxysmal atrial fibrillation I48.0 Diabetes mellitus E11.9
--- NOTE | 2021-05-30 11:23 | PC.SOCIAL ---
IMM Update: pg 2 of IMM updated and reviewed w/ patient. Copy provided.
[2021-05-30 13:16] LABS: Glucose Point of Care 129 mg/dL (70-110)
[2021-05-30 13:48] LABS: SARS Covid-2 Antigen Negative (Negative)
[2021-05-30 18:21] LABS: Glucose Point of Care 115 mg/dL (70-110)
--- NOTE | 2021-05-31 14:46 | P.DS_ITS ---
Discharge Providers Date of Admission: 05/27/21 16:00 Date of Discharge: May 31, 2021 Attending Provider at Admission: Los Hudson DO Attending Provider at Discharge: Los Hudson DO Primary Care Provider: Kannan Contreras Diagnoses at Discharge Discharge Diagnosis (1) Encounter for postoperative care: Status: Acute (2) Lumbar stenosis with neurogenic claudication: Status: Acute (3) Coronary artery disease: Status: Acute Qualifiers: Coronary Disease-Associated Artery/Lesion type: [place] artery [place] vs. transplanted heart: [place] heart Associated angina: without angina Qualified Code(s): I25.10 - Atherosclerotic heart disease of [place] coronary artery without angina pectoris (4) Diastolic heart failure: Status: Acute Qualifiers: Heart failure chronicity: chronic Qualified Code(s): I50.32 - Chronic diastolic (congestive) heart failure (5) Paroxysmal atrial fibrillation: Status: Acute (6) Diabetes mellitus: Status: Acute Reason for Visit Reason for Visit: psf Hospital Course Hospital Course 05/27/21 was admitted T10 to pelvis fusion; d/c on 05/31/21; stay was uneventful Discharge Data Data Completed and Pending: Completed Studies During Hospitalization Category Date Time Status XR chest 1V shaylee ble [id number] Routine Exams 05/27/21 17:00 Completed XR lumbar spine 2 -3V* [id number] Routine Exams 05/27/21 Completed Labs from last 24 hours 05/30/21 17:41 POC Glucose 115 H Vitals: Last Vital Signs Temp 98.4 F 05/30/21 18:34 Pulse 88 05/30/21 18:34 Resp 20 H 05/30/21 18:34 BP 107/66 05/30/21 18:34 Pulse Ox 92 05/30/21 18:34 Discharge Plan Discharge Patient Disposition: Home Condition: Stable Prescriptions: New Percocet 10-325 mg tablet 1 tab PO Q4H PRN (Reason: pain) 7 Days Qty: 40 RF: 0 Percocet 10-325 mg tablet 1 tab PO Q4H PRN (Reason: pain) 7 Days Qty: 40 RF: 0 Continued levothyroxine 100 mcg capsule 125 mcg PO DAILY RF: 0 acetaminophen [Tylenol] 325 mg tablet 325 mg PO Q4-5H PRN (Reason: Pain) RF: 0 aspirin 81 mg tablet,delayed release (DR/EC) 81 mg PO DAILY RF: 0 pregabalin 300 mg capsule 300 mg PO BID Qty: 60 RF: 1 Xarelto 20 mg tablet 20 mg PO DAILY Qty: 90 RF: 3 spironolactone 25 mg tablet 25 mg PO BID RF: 0 metformin 1,000 mg tablet 1,000 mg PO BID RF: 0 furosemide 40 mg tablet 40 mg PO DAILY PRN (Reason: Edema) Qty: 0 RF: 0 sennosides 15 mg Tablet 15 mg PO DAILY RF: 0 ropinirole 0.5 mg tablet 0.5 mg PO BEDTIME RF: 0 oxycodone-acetaminophen 7.5-325 mg tablet 1 tab PO Q4-5H PRN (Reason: Moderate Pain (Scale Score 5-6)) RF: 0 Robitussin 10 ml PO BEDTIME PRN (Reason: Cough) RF: 0 simvastatin 40 mg tablet 40 mg PO DAILY RF: 0 ascorbic acid (vitamin C) [Vitamin C] 500 mg Tablet 500 mg PO DAILY RF: 0 baclofen 10 mg tablet 5 mg PO BIDWMEAL RF: 0 magnesium oxide 250 mg magnesium Tablet 250 mg PO DAILY RF: 0 metoprolol tartrate 25 mg tablet 25 mg PO DAILY RF: 0 fenofibrate 160 mg tablet 160 mg PO DAILY RF: 0 pregabalin 300 mg capsule 300 mg PO BID RF: 0 omega 3-uci-mqo-fish oil [Fish Oil] 1,000 mg (120 mg-180 mg) Capsule 2 cap PO DAILY RF: 0 Tresiba FlexTouch U-100 100 unit/mL (3 mL) insulin pen 52 unit SUBCUT DAILY RF: 0 baclofen 10 mg tablet 10 mg PO DAILY RF: 0 Discharge Orders: Discharge Order (Routine); Ordered 05/30/21 Ordered By: Los Hudson Referrals: Los Hudson DO [Physician] - 06/11/21 10:30 am Discharge Diet: Advance as tolerated Discharge Activity: Resume usual activity Patient Instructions: Oxycodone/Acetaminophen (By mouth) (Percocet, Roxicet), Lumbar Spinal Stenosis (DC), Opioid Safety Activity Restrictions/Additional Instructions: Recheck cbc in 2 days Thank you for [facility] for your care! The following is a list of instructions, from your provider, to follow upon your discharge to ensure you have the optimal recovery from your recent injury orsurgery. Follow-up care is a abernathy part of your treatment and safety. Be sure to make and go to all appointments, and call your doctor if you are having problems. If you do not already have a follow-up appointment made, call Dr. Hudson office in the next 1-3 days to make follow up appointment for 1 weeks at [phone]. It is also a good idea to know your test results and keep a list of the medicines you take. Medications will be prescribed for you at your provider's discretion. These medications are to be used as instructed; if they are taken more often that prescribed they will not be refilled early and in most cases will not be refilled at all. > When a refill is needed,you should contact [facility] 2-3 business days before your prescription runs out. Medications will NOT be refilled by regional transportation manager providers after hours! > Many pain medications contain Tylenol (Acetaminophen). Do not consume more than 4,000 mg of Tylenol per day in total with any combination ofmedications. > Pain medications can cause constipation. Please use an over the counter stool softener as directed, while taking pain medications. Consulty our local pharmacist with questions or recommendations on stool softeners. If constipation persists, contact our office or your primary care provider. > While under our care,you are not to receive pain medications or other controlled substances from any other provider unless our office is notified and approves. Any attempts to do so will result in refusal to prescribe any further pain medications and possible dismissal from our practice. ? F/u 06/04/21 for dressing change ? Walking is essential for the healing process after surgery. We would like you to slowly advance your walking. This should be done on relatively flat clear ground (inside or out) or can be done on a treadmill. Remember this goal does not have to happen all at once, slowly increase your dis tance and duration. This can be broken into more more than one walk per day as tolerated. Patients who walk as directed after surgery rarely require Physical Therapy. In the unlikely event this issue arises your provider will direct hospital staff to make the appropriate arrangements. ? No lifting over 5 pounds {a gallon of milk) or bending/twisting until further notice. Each of these activities places an unnecessary amount of stress onto the body and can impede the delicate healing process. > Instead of bending at the waist, keep your back straight and bend at the knees. > Instead of twisting your torso, keep your back straight and turn your entire body with your feet. ? You may sleep in any position which makes you comfortable. Many patients find comfort sleeping in a reclining chair. It is not abnormal to have difficulty sleeping for the first several weeks following your surgery. We recommend trying Benadry! or Tylenol PM as directed to help with your sleeping difficulties. Both medications are over the counter and available withoutprescription. ? NO SMOKING!!! Smoking dramatically increases the probability of developing postoperative wound infections. ? Common complaints after lumbar and/or thoracic spine surgery include, but are not limited to: numbness and/or tingling in the legs, pain around the incision and surrounding tissues, muscle spasms, or stiffness of the middle to low back. Contact our office if these symptoms persist or if an acute change occurs. ? No driving for the first 3-5days, and not while taking narcotics [] until seen at your follow-up appointment and cleared. There are no restrictions for riding on short trips, however if you take a longer trip, arrangements should be made to make regular stops to get out of the vehicle and stretch . ? Swelling is an unfortunate event that will take place with any surgery and is the primary source of your postoperative discomfort. While walking and regular approved activities helps control inflammation, there are additional steps you can take to minimizeswelling. > Place ice over the surgical site and surrounding tissue for twenty minutes, followed by applying a low/medium heat (heating pad) for an additional twenty minutes every 1-2 hours as needed for painrelief. > You may use of over the counter anti-inflammatory medications (Ibuprofen, Motrin, Aleve, Advil, etc) as directed on the package label. These types of medicines wm significantly reduce the amount of discomfort you experience after surgery from swelling. It should be noted that if you have and allergy to any of these medications, or a history of ulcers or kidney disease you should consult you primary care provider prior to starting these medications. Discharge Attestations Time Spent in Discharge Care*: less than 30 min Quality Metrics Clinical Quality Measures During this hospital stay, did patient experience: None Coding Level of Care Code Acute [facility] note Diagnoses Encounter for postoperative care Z48.89 Lumbar stenosis with neurogenic claudication M48.062 Coronary artery disease I25.10 Coronary Disease-Associated Artery/Lesion type: [place] artery [place] vs. transplanted heart: [place] heart Associated angina: without angina Diastolic heart failure I50.32 Heart failure chronicity: chronic Paroxysmal atrial fibrillation I48.0 Diabetes mellitus E11.9
== END 2021-05-30 17:40 | disposition skilled nursing facility (03) | DRG 457 ==
LOC: MEDSURG 16:00
PROVIDERS: Anesthesiology; Student in an Organized Health Care Education/Training Program; Admitting Provider Orthopaedic Surgery; PCP Family Medicine; Visit Provider Orthopaedic Surgery
PROC: 0RG7071 Fusion of 2 to 7 Thoracic Vertebral Joints with Autologous Tissue Substitute, Posterior Approach, Posterior Column, Open Approach (ICD-10-PCS; principal; 2021-05-27 10:10)
PROC: 0RG7071 Fusion of 2 to 7 Thoracic Vertebral Joints with Autologous Tissue Substitute, Posterior Approach, Posterior Column, Open Approach (ICD-10-PCS; CPT 63005; 2021-05-27 10:10)
DX: M48.062 Spinal stenosis, lumbar region with neurogenic claudication (principal); I50.32 Chronic diastolic (congestive) heart failure; Z68.41 Body mass index [BMI] 40.0-44.9, adult; Z98.1 Arthrodesis status; Z85.43 Personal history of malignant neoplasm of ovary; G89.29 Other chronic pain; M54.9 Dorsalgia, unspecified; J44.9 Chronic obstructive pulmonary disease, unspecified; I25.10 Atherosclerotic heart disease of native coronary artery without angina pectoris; Z95.5 Presence of coronary angioplasty implant and graft; E11.42 Type 2 diabetes mellitus with diabetic polyneuropathy; E78.5 Hyperlipidemia, unspecified; I25.2 Old myocardial infarction; E66.9 Obesity, unspecified; G47.33 Obstructive sleep apnea (adult) (pediatric); I48.0 Paroxysmal atrial fibrillation; E07.9 Disorder of thyroid, unspecified; F17.210 Nicotine dependence, cigarettes, uncomplicated; Z79.891 Long term (current) use of opiate analgesic; Z79.84 Long term (current) use of oral hypoglycemic drugs; Z79.01 Long term (current) use of anticoagulants; Z79.82 Long term (current) use of aspirin; D64.89 Other specified anemias
CPT/HCPCS: 36415; 36416; 36430; 71045; 72100; 76000; 80053; 80061; 82962; 83036; 83540; 83550; 83880; 84145; 84443; 85014; 85018; 85025; 86850; 86900; 86920; 87426; 93005; 96365; 96372; 96374; 97110; 97162; 97530; C1713; J1100; J1170; J1644; J1815; J1885; J2270; J2370; J2405; J2704; J3010; J3370; J3490; J7030; P9016; P9041

== ENCOUNTER 2021-06-02 11:42 | Observation (INO) | payer MEDICARE, MEDICAID, SELFPAY ==
[2021-06-02 11:46] VITALS: BP 136/105; PULSE 84; RESP 16; TEMP 36.4; O2SAT 95; BMI 41.5
--- NOTE | 2021-06-02 11:46 | XRR_ITS ---
PROCEDURE INFORMATION: Exam: XR Chest Exam date and time: 06/02/2021 11:46 AM Age: 75 years old Clinical indication: Other: Found unresponsive, currently alert; Additional info: AMS TECHNIQUE: Imaging protocol: XR of the chest. Views: 1 view. COMPARISON: CR XR chest 1V portable [id number] 05/27/2021 5:33 PM FINDINGS: Lungs: Unremarkable. No consolidation. Pleural spaces: Elevation right hemidiaphragm No pleural effusion. No pneumothorax. Heart/Mediastinum: Unremarkable. No cardiomegaly. Bones/joints: Metallic surgical hardware dorsolumbar spine stable since prior. Metallic hardware cervical spine stable since prior. Other findings: Comparison to prior examination similar findings is seen XR/XR chest 1V portable [id number] IMPRESSION: 1. Surgical hardware cervical spine 2. Surgical hardware dorsal lumbar spine 3. Otherwise negative for acute abnormality. Radiation Dose CTDIVOL = (mGy): DLP = (mGy-cm)
--- NOTE | 2021-06-02 11:46 | CTR_ITS ---
PROCEDURE INFORMATION: Exam: CT Head Without Contrast Exam date and time: 06/02/2021 11:46 AM Age: 75 years old Clinical indication: Alteration of consciousness; Somnolence (drowsiness); Patient HX: PT was found unresponsive - is 6 days S/P back surgery; Additional info: AMS TECHNIQUE: Imaging protocol: Computed tomography of the head without contrast. Radiation optimization: All CT scans at this facility use at least one of these dose optimization techniques: automated exposure control; mA and/or kV adjustment per patient size (includes targeted exams where dose is matched to clinical indication); or iterative reconstruction. COMPARISON: CT cervical spine w con [id number] 06/11/2020 10:52 AM RADIATION DOSE METRICS: Total DLP (mGy-cm): 1140.06 FINDINGS: Brain: No intracranial hemorrhage, edema or other acute abnormalities are seen in the brain. There is mild chronic atrophy with prominence of the ventricles and sulci. There is no mass effect or midline shift. Cerebral ventricles: See Brain finding. Paranasal sinuses: There is scattered mild mucosal thickening in the ethmoid and sphenoid sinuses. Mastoid air cells: Visualized mastoid air cells are well aerated. Bones/joints: Unremarkable. No acute fracture. Soft tissues: Unremarkable. CT/CT head wo con* [id number] IMPRESSION: Mild chronic atrophy. No acute intracranial abnormality. Radiation Dose CTDIVOL = (mGy): DLP = 1140.06 (mGy-cm)
--- NOTE | 2021-06-02 11:46 | ECG_ITS ---
[facility] Test Date: 2021-06-02 Pat Name: Emerald Uriostegui Department: Room: Gender: Female [employer]: : 1945 Requested By: Magnus Casanova Order Number: [id number] Saurav MD: Amelie Cochran M.D. Measurements Intervals [place] Rate: 84 P: 65 MD: 163 QRS: 81 QRSD: 90 T: 17 QT: 357 QTc: 423 Interpretive Statements SINUS RHYTHM LOW QRS VOLTAGE IN PRECORDIAL LEADS [QRS DEFLECTION < 1.0 mV IN CHEST LEADS] Nonspecific T wave change Compared to ECG 05/23/2021 10:52:35 Indeterminate axis no longer present Electronically Signed On 06-02-2021 15:54:31 CLIN NURSE by Amelie Cochran M.D. [email or web address]
--- NOTE | 2021-06-02 11:52 | CTR_ITS ---
A PROCEDURE INFORMATION: Exam: CT Lumbar Spine Without Contrast Exam date and time: 06/02/2021 11:52 AM Age: 75 years old Clinical indication: Low back pain; Prior surgery; Surgery date: 3-7 days post-operative; Surgery type: Soria; Patient HX: PT was found unresponsive - is 6 days S/P back surgery C/O back pain; Additional info: Post surgery TECHNIQUE: Imaging protocol: Computed tomography images of the lumbar spine without contrast. Radiation optimization: All CT scans at this facility use at least one of these dose optimization techniques: automated exposure control; mA and/or kV adjustment per patient size (includes targeted exams where dose is matched to clinical indication); or iterative reconstruction. COMPARISON: CT lumbar spine w con [id number] 10/25/2020 11:40 AM RADIATION DOSE METRICS: Total DLP (mGy-cm): 1586.69 FINDINGS: Vertebrae: There is osteopenia and osteoarthritis seen. Metallic rods and pedicle screws are in place L1 to S2 vertebral bodies. Laminectomy defects are present. There is erosion and widening of the inter vertebral disc space between L2 and L3. The inferior aspect of the L2 vertebral body and superior aspect of the L3 vertebral body appears eroded . the sagittal measurements 34 mm x 37 mm coronal measurements 27 mm x 64 mm. There appears to be material present in this location. Consider spine MRI examination. the presence of the orthopedic hardware will decreased the sensitivity of this examination but the area of concern may be visible. Discs/Spinal canal/Neural foramina: A there is prominent material extending posteriorly into the spinal canal L2-L3. This spinal canal shows spinal stenosis. Comparison to prior examination . there barber narrowing of the spinal canal at that time. Other bones/joints: The bones appear expanded posteriorly, laterally and anteriorly Soft tissues: Unremarkable. Other findings: the specific etiology of this finding is uncertain. A comparison to prior examination there has been progression of the findings prior exam showed measurements of 28 mm x 27.7 mm; A are CT/CT lumbar spine wo con* [id number] IMPRESSION: 1. There is erosive changes L2-L3 vertebral body. 2. Extension of material into the spinal canal with central spinal stenosis L2-L3. 3. Osteopenia and osteoarthritis. 4. Postsurgical hardware and laminectomy defects in the lower lumbar spine Radiation Dose CTDIVOL = (mGy): DLP = 1586.69 (mGy-cm)
--- NOTE | 2021-06-02 11:52 | CTR_ITS ---
PROCEDURE INFORMATION: Exam: CT Thoracic Spine Without Contrast Exam date and time: 06/02/2021 11:52 AM Age: 75 years old Clinical indication: Pain in thoracic spine; Without myelpathy or radiculopathy; Prior surgery; Surgery date: 3-7 days post-operative; Surgery type: Soria; Patient HX: PT was found unresponsive - is 6 days S/P back surgery C/O back pain; Additional info: Post surgery TECHNIQUE: Imaging protocol: Computed tomography images of the thoracic spine without contrast. Radiation optimization: All CT scans at this facility use at least one of these dose optimization techniques: automated exposure control; mA and/or kV adjustment per patient size (includes targeted exams where dose is matched to clinical indication); or iterative reconstruction. COMPARISON: CT lumbar spine w con [id number] 10/25/2020 11:40 AM RADIATION DOSE METRICS: Total DLP (mGy-cm): 2177.74 FINDINGS: Vertebrae: No acute fracture. Normal alignment. Generalized osteopenia and osteoarthritis is seen. There is narrowing of the intervertebral disc space at multiple levels with bone spurs. Postsurgical hardware is present in the dorsal lumbar spine this finding is associated with the imaging artifact diminishing the quality of the examination. Evidence of laminectomy defects are seen Discs/Spinal canal/Neural foramina: No significant disc protrusion. No severe spinal canal stenosis. No significant neural foraminal narrowing. Soft tissues: Right lower lobe pleural effusions . Otherwise negative examination. CT/CT thoracic spin wo con* [id number] IMPRESSION: 1. Severe osteoarthritis and osteopenia. 2. Postsurgical defects with laminectomy and orthopedic hardware dorsal lumbar spine. 3. Right lower lobe pleural effusion. 4. Otherwise negative examination Radiation Dose CTDIVOL = (mGy): DLP = 2177.74 (mGy-cm)
--- NOTE | 2021-06-02 11:52 | CTR_ITS ---
PROCEDURE INFORMATION: Exam: CT Pelvis Without Contrast; Skeletal Exam date and time: 06/02/2021 11:52 AM Age: 75 years old Clinical indication: Pelvic pain; Prior surgery; Surgery date: 3-7 days post-operative; Surgery type: Soria; Patient HX: PT was found unresponsive - is 6 days S/P back surgery C/O back pain; Additional info: Post surgery TECHNIQUE: Imaging protocol: Computed tomography images of the pelvis without contrast. Exam focused on the skeletal structures. Radiation optimization: All CT scans at this facility use at least one of these dose optimization techniques: automated exposure control; mA and/or kV adjustment per patient size (includes targeted exams where dose is matched to clinical indication); or iterative reconstruction. COMPARISON: CT lumbar spine wo con* [id number] 06/02/2021 12:50 PM RADIATION DOSE METRICS: Total DLP (mGy-cm): 865.05 FINDINGS: Bones/joints: Pelvic bones show no evidence of acute abnormality. No acute fracture. No dislocation. There is laminectomy defects in the lower lumbar spine with metallic pedicle screws and rods in place bilaterally. The metallic screws extend into the iliac bones The presence of the metallic components is associated with excessive imaging artifact. Soft tissues: . The sigmoid colon shows scattered diverticulosis without diverticulitis.. Urinary bladder is decompressed with a Tipton catheter. The soft tissues are otherwise unremarkable. CT/CT pelvis wo con [id number] IMPRESSION: 1. Negative for acute bony abnormality of the pelvis. 2. Multiple transpedicular screws and rods are seen extending to the iliac bones 3. Evidence of laminectomy changes in the lower lumbar spine. 4. Sigmoid colon diverticulosis a Radiation Dose CTDIVOL = (mGy): DLP = 865.05 (mGy-cm)
[2021-06-02] MEDS: acetaminophen 500 mg Tablet PO (12:20)
[2021-06-02 12:23] VITALS: PULSE 79; RESP 16; O2SAT 94
--- NOTE | 2021-06-02 12:48 | W.ED.GENADLT ---
HPI - General Adult General: Chief complaint: Neuro Symptoms/Deficit Stated complaint: FOUND UNRESPONSIVE BUT ALERT NOW Time Seen by Provider: 06/02/21 11:47 History of Present Illness: HPI narrative: Patient is a 75-year-old female with a history of recent T12 to pelvic fusion presents emergency room from [facility] for concerns for altered mental status. Per residential staff, patient was unresponsive for 2 episode earlier today. By time EMS arrived, patient is back to baseline. No medicine was administered. On arrival, patient is AAO x4 speech is clear complaining of back pain and hip pain. Patient denies using more than her usual amount of opiate medication. Has no other focal complaints of any chest pain, shortness breath, palpitation, lightheadedness, fever/chills, leg pain or other issues at this time. Patient complains of postsurgical pain in the back. Denies any drainage, fever, bulging, weakness in the legs, saddle symptoms. Onset: earlier today Duration:ongoing Location:home Severity:moderate Review of Systems Narrative: Constitutional: No fever, no chills. HEENT: No vision changes CV: No chest pain, no palpitations PULM: no cough, no dyspnea. GI: No abdominal pain, no N/V/D. : No dysuria MSKEL: No muscle pain SKIN: No new rashes, no lesions. NEURO: No headache, no focal weakness. HEME: No visible bruises PSYCH: Normal mood BACK: +thoracic/lumbar/pelvic pain PFSH ED PFSH: Medical History (Updated 06/02/21 @ 16:45 by Magnus Casanova MD) Arrhythmia Carpal tunnel syndrome Cervical cancer Chronic back pain Chronic pain COPD (chronic obstructive pulmonary disease) Coronary artery disease Diabetes mellitus Diabetic neuropathy Diastolic heart failure DJD (degenerative joint disease) Encounter for long-term opiate analgesic use Hyperlipidemia Myocardial infarction Obesity Obstructive sleep apnea Opioid contract exists Ovarian cancer Paroxysmal atrial fibrillation Smoker Thyroid disease Surgical History History of angioplasty History of back surgery History of carpal tunnel surgery History of cholecystectomy History of coronary artery stent placement History of hysterectomy History of knee surgery Family History Father No problems noted. Social History Smoking and tobacco status: current every day smoker Smoking risk assessment/counseling performed?: Yes Alcohol intake: former History of recent travel: No Physical Exam Narrative: EXAM NARRATIVE: Head: Atraumatic Eyes: PERRL, conjunctiva without injection ENT: Mucous membrane moist NECK: Supple, ROM intact LUNGS: LCTAB, no crackles/rhonchi CV: RRR ABDOMEN: Soft, nontender in all quadrants EXTREMITY: Normal ROM, 5/5 in lower extremities SKIN: No rash or erythema NEURO: Awake and alert, no focal motor deficits PSYCH: Normal mood and affect BACK: postsurgical sites dry/clean/intact : No saddle numbness Course Vital Signs: Vital signs: Vital Signs Temperature 97.6 F 06/02/21 11:46 Pulse Rate 65 06/02/21 15:13 Respiratory Rate 12 06/02/21 15:13 Blood Pressure 107/61 06/02/21 15:13 Pulse Oximetry 95 06/02/21 15:13 MDM - General Adult MDM Narrative: Medical decision making narrative: Patient is a 75-year-old female with a history of recent T12 to pelvic fusion presenting to the emergency room for evaluation of altered mental status x2 episodes per residential. Arrival, patient is AAO x3, GCS 15, with no focal complaints other than postsurgical back pain. Patient has no signs of spinal cord compression at this time Work-up: Altered mental status workup, CT T/L/S spines Intervention: observation Workup today has been largely negative. Hemoglobin 8.3 consistent with baseline. Patient was found to be hypoglycemic with a glucose of 33. Patient received an amp of D50 with improvement in symptoms. Patient had intermittent episode of hypotension which may be positional. Patient is found to be laying on her right side. We take the blood pressure without the patient laying on her right side, her blood pressure improves. Patient has history of hypothyroidism. Given this mild confusion, decision was made to give patient IV levothyroxine [address] brain, x-ray chest, CT T-spine L-spine and pelvis negative for any acute signs of infection. Surgical site of care appears to be clear. Patient is moving all extremity, no changes mental status while observed in the emergency room. Patient is currently on oxycodone 7.5 mg every 4 hours and Percocet 10 mg every 4 hours. I have spoken with Shayla the nurse from [facility] with recommendation for discontinue the oxycodone 7.5 mg. Provider was then told to space out the Percocet to every 8 hours. Patient will be going home with Narcan prescription should she have any complications from these long-acting opiates. I have informed the patient to cut back on her pain medicine. Patient had multiple episodes of hypoglycemia and is occasionally somnolent. Patient will be admitted for observation given hx of tresiba use. Pending UA. On D10 drip currently until able to tolerate PO. Disposition: Admission for observation Lab Data: Labs: Lab Results 06/02/21 06/02/21 06/02/21 12:15 12:15 12:15 WBC 9.1 10^3/uL 10^3/ uL (4.0-10.0) RBC 2.80 10^6/uL L 10 ^6/uL (4.1-5.3) Hgb 8.3 g/dL L g/dL (11.5-15.3) Hct 24.5 % L % (37.0-47.0) MCV 87.5 fl fl (81-99) MCH 29.6 pg pg (28.0-34.0) MCHC 33.9 g/dL g/dL (30.0-36.0) RDW 16.8 % H % (12.1-15.1) Plt Count 249 10^3/cmm 10^3 /cmm (130-400) MPV 11.5 fL H fL (7.4-10.4) Neut % (Auto) 49.8 % % Lymph % (Auto) 29.5 % % Victoria % (Auto) 10.2 % % Eos % (Auto) 6.1 % % Baso % (Auto) 0.9 % % Neut # (Auto) 4.52 10^3/uL 10^3 /uL (1.8-7.7) Lymph # (Auto) 2.7 10^3/uL 10^3/ uL (0.8-4.8) Victoria # (Auto) 0.9 10^3/uL 10^3/ uL (0.2-0.9) Eos # (Auto) 0.6 10^3/uL 10^3/ uL (0.0-0.8) Baso # (Auto) 0.1 10^3/uL 10^3/ uL (0.0-0.1) Nucleated RBC % (a uto) 0.2 % % Nucleated RBCs # 0.0 /100WBC /100W BC Sodium Cancelled Potassium Cancelled Chloride Cancelled Carbon Dioxide Cancelled Anion Gap Cancelled BUN Cancelled Creatinine Cancelled GFR Calculation Cancelled Glucose Cancelled POC Glucose Calculated Osmolal ity Cancelled Calcium Cancelled Total Bilirubin Cancelled AST Cancelled ALT Cancelled Alkaline Phosphata se Cancelled Creatine Kinase Cancelled Troponin T Baselin e Cancelled Total Protein Cancelled Albumin Cancelled Globulin Cancelled Lipase Cancelled TSH Free T4 Salicylates Cancelled Acetaminophen Cancelled 06/02/21 06/02/21 06/02/21 13:18 13:18 14:41 WBC RBC Hgb Hct MCV MCH MCHC RDW Plt Count MPV Neut % (Auto) Lymph % (Auto) Victoria % (Auto) Eos % (Auto) Baso % (Auto) Neut # (Auto) Lymph # (Auto) Victoria # (Auto) Eos # (Auto) Baso # (Auto) Nucleated RBC % (a uto) Nucleated RBCs # Sodium 132 mmol/L L mmol /L (136-145) Potassium 4.4 mmol/L mmol/L (3.5-5.1) Chloride 100 mmol/L mmol/L (98-107) Carbon Dioxide 24 mmol/L mmol/L (22-29) Anion Gap 12.4 (5-19) BUN 12 mg/dL mg/dL (8-23) Creatinine 0.6 mg/dL mg/dL (0.5-0.9) GFR Calculation Not Reportable Glucose 33 mg/dL L* mg/dL (65-115) POC Glucose 98 mg/dL mg/dL (70-110) Calculated Osmolal ity 270 mOsm/kg L mOs m/kg (285-295) Calcium 8.5 mg/dL mg/dL (8.5-10.5) Total Bilirubin 0.3 mg/dL mg/dL (0.15-1.2) AST 13 U/L U/L (0-32) ALT 8 U/L U/L (0-33) Alkaline Phosphata se 49 IU/L IU/L (35-105) Creatine Kinase 51 U/L U/L (26-192) Troponin T Baselin e 19 ng/L H ng/L (0-10) Total Protein 6.2 g/dL L g/dL (6.6-8.7) Albumin 3.4 g/dL L g/dL (3.5-5.2) Globulin 2.8 g/dL g/dL (1.3-4.6) Lipase 18 U/L U/L (13-60) TSH 5.88 uIU/mL H uIU /mL (0.27-4.20) Free T4 1.32 ng/dL ng/dL (0.82-1.77) Salicylates < 0.3 mg/dL L mg/ dL (3-10) Acetaminophen < 5.0 ug/mL L ug/ mL (10-30) 06/02/21 06/02/21 06/02/21 15:29 16:32 16:37 WBC RBC Hgb Hct MCV MCH MCHC RDW Plt Count MPV Neut % (Auto) Lymph % (Auto) Victoria % (Auto) Eos % (Auto) Baso % (Auto) Neut # (Auto) Lymph # (Auto) Victoria # (Auto) Eos # (Auto) Baso # (Auto) Nucleated RBC % (a uto) Nucleated RBCs # Sodium Potassium Chloride Carbon Dioxide Anion Gap BUN Creatinine GFR Calculation Glucose POC Glucose 66 mg/dL L mg/dL 90 mg/dL mg/dL 93 mg/dL mg/dL (70-110) (70-110) (70-110) Calculated Osmolal ity Calcium Total Bilirubin AST ALT Alkaline Phosphata se Creatine Kinase Troponin T Baselin e Total Protein Albumin Globulin Lipase TSH Free T4 Salicylates Acetaminophen Imaging Data^: Other Imaging: Radiologist's impression: [address] [id number] Scan ReportSigned Patient: Emerald Uriostegui #: [id number]: [id number]#:[id number]/Sex: 75 / FADM Date: 06/02/21Loc: ERRoom/Bed:Attending Dr: Ordering Provider/Ordering MD: Magnus Casanova MD Date of Service: 06/02/21 Procedure(s): CT thoracic spin wo con* [id number] Accession Number(s): [id number] Report Number: [id number] PROCEDURE INFORMATION: Exam: CT Thoracic Spine Without Contrast Exam date and time: 06/02/2021 11:52 AM Age: 75 years old Clinical indication: Pain in thoracic spine; Without myelpathy or radiculopathy; Prior surgery; Surgery date: 3-7 days post-operative; Surgery type: Soria; Patient HX: PT was found unresponsive - is 6 days S/P back surgery C/O back pain; Additional info: Post surgery TECHNIQUE: Imaging protocol: Computed tomography images of the thoracic spine without contrast. Radiation optimization: All CT scans at this facility use at least one of these dose optimization techniques: automated exposure control; mA and/or kV adjustment per patient size (includes targeted exams where dose is matched to clinical indication); or iterative reconstruction. COMPARISON: CT lumbar spine w con [id number] 10/25/2020 11:40 AM RADIATION DOSE METRICS: Total DLP (mGy-cm): 2177.74 FINDINGS: Vertebrae: No acute fracture. Normal alignment. Generalized osteopenia and osteoarthritis is seen. There is narrowing of the intervertebral disc space at multiple levels with bone spurs. Postsurgical hardware is present in the dorsal lumbar spine this finding is associated with the imaging artifact diminishing the quality of the examination. Evidence of laminectomy defects are seen Discs/Spinal canal/Neural foramina: No significant disc protrusion. No severe spinal canal stenosis. No significant neural foraminal narrowing. Soft tissues: Right lower lobe pleural effusions . Otherwise negative examination. CT/CT thoracic spin wo con* [id number] IMPRESSION: 1. Severe osteoarthritis and osteopenia. 2. Postsurgical defects with laminectomy and orthopedic hardware dorsal lumbar spine. 3. Right lower lobe pleural effusion. 4. Otherwise negative examination Radiation Dose CTDIVOL = (mGy): DLP = 2177.74 (mGy-cm) Dictated By:Larissa Gusman By:Larissa Gusman Date/Time:06/02/21 1327DD/ 1152 [facility] [place] [id number] Scan ReportSigned Patient: Emerald Uriostegui #: [id number]: [id number]#:[id number]/Sex: 75 / FADM Date: 06/02/21Loc: ERRoom/Bed:Attending Dr: Ordering Provider/Ordering MD: Magnus Casanova MD Date of Service: 06/02/21 Procedure(s): CT pelvis wo con [id number] Accession Number(s): [id number] Report Number: [id number] PROCEDURE INFORMATION: Exam: CT Pelvis Without Contrast; Skeletal Exam date and time: 06/02/2021 11:52 AM Age: 75 years old Clinical indication: Pelvic pain; Prior surgery; Surgery date: 3-7 days post-operative; Surgery type: Soria; Patient HX: PT was found unresponsive - is 6 days S/P back surgery C/O back pain; Additional info: Post surgery TECHNIQUE: Imaging protocol: Computed tomography images of the pelvis without contrast. Exam focused on the skeletal structures. Radiation optimization: All CT scans at this facility use at least one of these dose optimization techniques: automated exposure control; mA and/or kV adjustment per patient size (includes targeted exams where dose is matched to clinical indication); or iterative reconstruction. COMPARISON: CT lumbar spine wo con* [id number] 06/02/2021 12:50 PM RADIATION DOSE METRICS: Total DLP (mGy-cm): 865.05 FINDINGS: Bones/joints: Pelvic bones show no evidence of acute abnormality. No acute fracture. No dislocation. There is laminectomy defects in the lower lumbar spine with metallic pedicle screws and rods in place bilaterally. The metallic screws extend into the iliac bones The presence of the metallic components is associated with excessive imaging artifact. Soft tissues: . The sigmoid colon shows scattered diverticulosis without diverticulitis.. Urinary bladder is decompressed with a Tipton catheter. The soft tissues are otherwise unremarkable. CT/CT pelvis wo con [id number] IMPRESSION: 1. Negative for acute bony abnormality of the pelvis. 2. Multiple transpedicular screws and rods are seen extending to the iliac bones 3. Evidence of laminectomy changes in the lower lumbar spine. 4. Sigmoid colon diverticulosis a Radiation Dose CTDIVOL = (mGy): DLP = 865.05 (mGy-cm) Dictated By:Larissa Gusman By:Larissa Gusman Date/Time:06/02/21 1410DD/ [address] [place] [id number] Scan ReportSigned Patient: Emerald Uriostegui #: [id number]: 8Acct#:[id number]/Sex: 75 / FADM Date: 06/02/21Loc: ERRoom/Bed:Attending Dr: Ordering Provider/Ordering MD: Magnus Casanova MD Date of Service: 06/02/21 Procedure(s): CT lumbar spine wo con* [id number] Accession Number(s): [id number] Report Number: [id number] PROCEDURE INFORMATION: Exam: CT Lumbar Spine Without Contrast Exam date and time: 06/02/2021 11:52 AM Age: 75 years old Clinical indication: Low back pain; Prior surgery; Surgery date: 3-7 days post-operative; Surgery type: Soria; Patient HX: PT was found unresponsive - is 6 days S/P back surgery C/O back pain; Additional info: Post surgery TECHNIQUE: Imaging protocol: Computed tomography images of the lumbar spine without contrast. Radiation optimization: All CT scans at this facility use at least one of these dose optimization techniques: automated exposure control; mA and/or kV adjustment per patient size (includes targeted exams where dose is matched to clinical indication); or iterative reconstruction. COMPARISON: CT lumbar spine w con [id number] 10/25/2020 11:40 AM RADIATION DOSE METRICS: Total DLP (mGy-cm): 1586.69 FINDINGS: Vertebrae: There is osteopenia and osteoarthritis seen. Metallic rods and pedicle screws are in place L1 to S2 vertebral bodies. Laminectomy defects are present. There is erosion and widening of the inter vertebral disc space between L2 and L3. The inferior aspect of the L2 vertebral body and superior aspect of the L3 vertebral body appears eroded . the sagittal measurements 34 mm x 37 mm coronal measurements 27 mm x 64 mm. There appears to be material present in this location. Consider spine MRI examination. the presence of the orthopedic hardware will decreased the sensitivity of this examination but the area of concern may be visible. Discs/Spinal canal/Neural foramina: A there is prominent material extending posteriorly into the spinal canal L2-L3. This spinal canal shows spinal stenosis. Comparison to prior examination . there barber narrowing of the spinal canal at that time. Other bones/joints: The bones appear expanded posteriorly, laterally and anteriorly Soft tissues: Unremarkable. Other findings: the specific etiology of this finding is uncertain. A comparison to prior examination there has been progression of the findings prior exam showed measurements of 28 mm x 27.7 mm; A are CT/CT lumbar spine wo con* [id number] IMPRESSION: 1. There is erosive changes L2-L3 vertebral body. 2. Extension of material into the spinal canal with central spinal stenosis L2-L3. 3. Osteopenia and osteoarthritis. 4. Postsurgical hardware and laminectomy defects in the lower lumbar spine Radiation Dose CTDIVOL = (mGy): DLP = 1586.69 (mGy-cm) Dictated By:Larissa Gusman By:Larissa Gusman Date/Time:06/02/21 1402DD/ 1152 [facility] [place] [id number] Scan ReportSigned Patient: Emerald Uriostegui #: [id number]: [id number]#:[id number]/Sex: 75 / FADM Date: 06/02/21Loc: ERRoom/Bed:Attending Dr: Ordering Provider/Ordering MD: Magnus Casanova MD Date of Service: 06/02/21 Procedure(s): CT head wo con* [id number] Accession Number(s): [id number] Report Number: [id number] PROCEDURE INFORMATION: Exam: CT Head Without Contrast Exam date and time: 06/02/2021 11:46 AM Age: 75 years old Clinical indication: Alteration of consciousness; Somnolence (drowsiness); Patient HX: PT was found unresponsive - is 6 days S/P back surgery; Additional info: AMS TECHNIQUE: Imaging protocol: Computed tomography of the head without contrast. Radiation optimization: All CT scans at this facility use at least one of these dose optimization techniques: automated exposure control; mA and/or kV adjustment per patient size (includes targeted exams where dose is matched to clinical indication); or iterative reconstruction. COMPARISON: CT cervical spine w con [id number] 06/11/2020 10:52 AM RADIATION DOSE METRICS: Total DLP (mGy-cm): 1140.06 FINDINGS: Brain: No intracranial hemorrhage, edema or other acute abnormalities are seen in the brain. There is mild chronic atrophy with prominence of the ventricles and sulci. There is no mass effect or midline shift. Cerebral ventricles: See Brain finding. Paranasal sinuses: There is scattered mild mucosal thickening in the ethmoid and sphenoid sinuses. Mastoid air cells: Visualized mastoid air cells are well aerated. Bones/joints: Unremarkable. No acute fracture. Soft tissues: Unremarkable. CT/CT head wo con* [id number] IMPRESSION: Mild chronic atrophy. No acute intracranial abnormality. Radiation Dose CTDIVOL = (mGy): DLP = 1140.06 (mGy-cm) Dictated By:Gulshan Forrest By:Gulshan Forrest Date/Time:06/02/21 1405DD/ 1146 [facility] [place], [place] [address]VKhu ReportSigned Patient: Emerald Uriostegui #: [id number]: [id number]#:[id number]/Sex: 75 / FADM Date: 06/02/21Loc: ERRoom/Bed:Attending Dr: Ordering Provider/Ordering MD: Magnus Casanova MD Date of Service: 06/02/21 Procedure(s): XR chest 1V portable [id number] Accession Number(s): [id number] Report Number: [id number] PROCEDURE INFORMATION: Exam: XR Chest Exam date and time: 06/02/2021 11:46 AM Age: 75 years old Clinical indication: Other: Found unresponsive, currently alert; Additional info: AMS TECHNIQUE: Imaging protocol: XR of the chest. Views: 1 view. COMPARISON: CR XR chest 1V portable [id number] 05/27/2021 5:33 PM FINDINGS: Lungs: Unremarkable. No consolidation. Pleural spaces: Elevation right hemidiaphragm No pleural effusion. No pneumothorax. Heart/Mediastinum: Unremarkable. No cardiomegaly. Bones/joints: Metallic surgical hardware dorsolumbar spine stable since prior. Metallic hardware cervical spine stable since prior. Other findings: Comparison to prior examination similar findings is seen XR/XR chest 1V portable [id number] IMPRESSION: 1. Surgical hardware cervical spine 2. Surgical hardware dorsal lumbar spine 3. Otherwise negative for acute abnormality. Radiation Dose CTDIVOL = (mGy): DLP = (mGy-cm) Dictated By:Larissa Gusman By:Larissa Gsuman Date/Time:06/02/21 1320DD/ 1146 Discharge Plan Discharge Patient Disposition: Admitted As Inpatient Admit Provider: Sophie Perdomo Clinical Impression: Chronic back pain, Back pain, Altered mental status, Hypoglycemia, Obesity Condition: Stable Discharge Diet: Advance as tolerated Discharge Activity: Resume usual activity Coding Level of Care Code ED Jointer Operator for Roldan Winters
[2021-06-02 13:00] LABS: Basophils # 0.1 10^3/uL (0.0-0.1); Basophils % 0.9 %; Eosinophils # 0.6 10^3/uL (0.0-0.8); Eosinophils % 6.1 %; Hematocrit 24.5 % (37.0-47.0); Hemoglobin 8.3 g/dL (11.5-15.3); Lymphocytes # 2.7 10^3/uL (0.8-4.8); Lymphocytes % 29.5 %; Mean Corpuscular HGB Conc 33.9 g/dL (30.0-36.0); Mean Corpuscular Hemoglobin 29.6 pg (28.0-34.0); Mean Corpuscular Volume 87.5 fl (81-99); Mean Platelet Volume 11.5 fL (7.4-10.4); Monocytes # 0.9 10^3/uL (0.2-0.9); Monocytes % 10.2 %; Neutrophils # 4.52 10^3/uL (1.8-7.7); Neutrophils % 49.8 %; Nucleated Red Blood Cells % 0.2 %; Platelet Count 249 10^3/cmm (130-400); Red Cell Distribution Width 16.8 % (12.1-15.1); White Blood Count 9.1 10^3/uL (4.0-10.0)
[2021-06-02 14:01] LABS: Troponin(5th) Baseline 19 ng/L (0-10)
[2021-06-02 14:10] LABS: Alanine Aminotransferase 8 U/L (0-33); Albumin Level 3.4 g/dL (3.5-5.2); Alkaline Phosphatase 49 IU/L (35-105); Anion Gap 12.4 (5-19); Aspartate Amino Transferase 13 U/L (0-32); Blood Urea Nitrogen 12 mg/dL (8-23); Calcium 8.5 mg/dL (8.5-10.5); Carbon Dioxide 24 mmol/L (22-29); Chloride 100 mmol/L (98-107); Creatine Phosphokinase 51 U/L (26-192); Free T4 Free Thyroxine 1.32 ng/dL (0.82-1.77); Globulin 2.8 g/dL (1.3-4.6); Lipase 18 U/L (13-60); Osmolality Calculated 270 mOsm/kg (285-295); Potassium 4.4 mmol/L (3.5-5.1); Sodium 132 mmol/L (136-145); Thyroid Stimulating Hormone 5.88 uIU/mL (0.27-4.20); Total Bilirubin 0.3 mg/dL (0.15-1.2); Total Protein 6.2 g/dL (6.6-8.7)
[2021-06-02 14:18] LABS: Acetaminophen < 5.0 ug/mL (10-30); Salicylate < 0.3 mg/dL (3-10)
[2021-06-02 14:20] LABS: Glucose 33 mg/dL (65-115)
[2021-06-02] MEDS: dextrose 50% syringe 50 mL IVP ×2 (14:22→15:38)
[2021-06-02 14:45] LABS: Glucose Point of Care 98 mg/dL (70-110)
[2021-06-02] MEDS: sodium chloride 0.9% 1,000 ML 999 ML IV (15:04)
[2021-06-02] MEDS: levothyroxine 100 mcg SDV IVP (15:08)
[2021-06-02 15:13] VITALS: BP 107/61; PULSE 65; RESP 12; O2SAT 95
[2021-06-02 15:33] LABS: Glucose Point of Care 66 mg/dL (70-110)
[2021-06-02 16:35] LABS: Glucose Point of Care 90 mg/dL (70-110)
[2021-06-02 16:39] LABS: Glucose Point of Care 93 mg/dL (70-110)
--- NOTE | 2021-06-02 17:09 | P.HP_ITS ---
Providers/Chief Complaint Admitting Physician: Sophie Perdomo MD Primary Care Provider: Kannan Contreras Chief Complaint: FOUND UNRESPONSIVE BUT ALERT NOW History of Present Illness Emerald Uriostegui is a 75 year old female is a resident of [facility], recently had back surgery by Dr. Hudson T10-s1 instrumentation, T10 pelvic fusion, laminectomy L2, L3 with partial facetectomies bone marrow aspirate right iliac crest removal of hardware from spine on 05/27/2021 presented today for chief complaint of altered mental status. Patient is stating that she has been bedbound since her surgery, she is a Jovani lift, she takes Tresiba. She is compliant with her medications and has been eating adequately. She has not noticed any fever, shortness of breath. She does have a chronic indwelling catheter. Today she felt fatigued and lethargic and slurred out of her bed on the floor. It was difficult to pull her up in the bed, at that time to apneic spells were noted by the nursing staff hence EMS was called. Patient is denying chest pain, syncopal events, strokelike symptoms. She is vaccinated for COVID-19. In the ER she was diagnosed with hyperglycemia glucose 33 she was given 1 amp of D50 which improved blood sugar to 90 which dropped to 60 after few hours, she was given second amp of D50 which improved her blood sugar to 90 again and she was started on D10 Hospital service was asked to admit for observation overnight because of hypoglycemia and long-acting insulin usage at the longterm. She was not given Narcan, pupils are equal and reactive, chest x-ray negative for any kind of pneumonia, urinalysis is pending, She does take opioids every 4 hours for her back pain at the facility CT head negative She is not confused at the time of my evaluation Review of Systems Const: Reports: fatigue; Denies: fever(s), chills or body aches Eyes: Denies: change in vision ENMT: Denies: throat pain Card: Denies: chest pain Resp: Denies: dyspnea GI: Denies: abdominal pain : Denies: flank pain Musc: Reports: extremity swelling; Denies: neck pain Skin/Breast: Reports: lesions Neuro: Denies: headache(s) Psych: Denies: anxiety Endo: Denies: polyuria Avinash/Lymph: Denies: easy bruising All/Imm: Denies: urticaria Medications/Allergies Home Medications Medication Instructions Recorded Confirmed Last Taken Type metformin 1,000 mg PO BID 08/15/19 06/02/21 05/26/21 History spironolactone 25 mg PO BID 08/15/19 06/02/21 05/26/21 History furosemide 40 mg PO DAILY PRN #0 tab 08/18/19 06/02/21 05/26/21 Rx levothyroxine 100 mcg capsule 125 mcg PO DAILY 11/16/19 06/02/21 05/26/21 History rivaroxaban 20 mg tablet 20 mg PO DAILY #90 tab 02/20/20 06/02/21 05/22/21 Rx acetaminophen 325 mg tablet 325 mg PO Q4-5H PRN tab 05/09/20 06/02/21 05/26/21 History aspirin 81 mg tablet,delayed 81 mg PO DAILY 05/09/20 06/02/21 05/24/21 History release Tresiba FlexTouch U-100 52 unit SUBCUT DAILY 03/27/21 06/02/21 05/26/21 History ascorbic acid (vitamin C) [Vitamin 500 mg PO DAILY 03/27/21 06/02/21 05/26/21 History C] baclofen 5 mg PO BIDWMEAL 03/27/21 06/02/21 05/26/21 History baclofen 10 mg PO DAILY 03/27/21 06/02/21 05/26/21 History fenofibrate 160 mg PO DAILY 03/27/21 06/02/21 05/26/21 History magnesium oxide 250 mg PO DAILY 03/27/21 06/02/21 05/26/21 History metoprolol tartrate 25 mg PO DAILY 03/27/21 06/02/21 05/26/21 History omega 2-lcd-say-fish oil [Fish Oil] 2 cap PO DAILY 03/27/21 06/02/21 05/26/21 History pregabalin 300 mg PO BID 03/27/21 06/02/21 05/26/21 History simvastatin 40 mg PO DAILY 03/27/21 06/02/21 05/26/21 History Robitussin 10 ml PO BEDTIME PRN 05/27/21 06/02/21 Unknown History ropinirole 0.5 mg PO BEDTIME 05/27/21 06/02/21 05/26/21 History sennosides 15 mg PO DAILY 05/27/21 06/02/21 05/26/21 History lidocaine 1 patch TOPICAL DAILY PRN 10 Days 06/02/21 Unknown Rx #10 ea menthol [Biofreeze (menthol)] 1 ea TOPICAL BID PRN 10 Days #1 06/02/21 Unknown Rx tube Allergies Allergy/AdvReac Type Severity Reaction Status Date / Time cefuroxime [From Zinacef] Allergy ALGY-Hives Verified 04/02/21 11:26 doxepin Allergy ADR-Nightma Verified 04/02/21 11:26 re PFSH Acute PFSH: Medical History Arrhythmia Carpal tunnel syndrome Cervical cancer Chronic back pain Chronic pain COPD (chronic obstructive pulmonary disease) Coronary artery disease Diabetes mellitus Diabetic neuropathy Diastolic heart failure DJD (degenerative joint disease) Encounter for long-term opiate analgesic use Hyperlipidemia Myocardial infarction Obesity Obstructive sleep apnea Opioid contract exists Ovarian cancer Paroxysmal atrial fibrillation Smoker Thyroid disease Surgical History History of angioplasty History of back surgery History of carpal tunnel surgery History of cholecystectomy History of coronary artery stent placement History of hysterectomy History of knee surgery Family History Father No problems noted. Social History Smoking and tobacco status: current every day smoker Smoking risk assessment/counseling performed?: Yes Alcohol intake: former History of recent travel: No Vitals/I&O/Wt Last Vital Signs Temp 97.6 F 06/02/21 11:46 Pulse 65 06/02/21 15:13 Resp 12 06/02/21 15:13 BP 107/61 06/02/21 15:13 Pulse Ox 95 06/02/21 15:13 Weight last 48 hrs Weight 109.769 kg Physical Exam Narrative: EXAM NARRATIVE: Morbid obese female Bedbound Able to move his upper and lower extremities Has indwelling [place] catheter EOMI, PERRLA Nonfocal neuro exam S1, S2 Distended abdomen EOMI, PERRLA Saturating well on room air Awake and alert Oriented x3 GCS 15 No audible stridor or wheezing Data : 06/02/21 12:15 06/02/21 13:18 A&P Assessment and plan (1) Back pain: Status: Acute (2) Altered mental status: Status: Acute (3) Hypoglycemia: Status: Acute (4) Diabetes mellitus: Status: Acute (5) Obesity: Status: Acute Additional A&P Information Metabolic encephalopathy related to hypoglycemic event We will keep patient on D10 GTT for now Accu-Chek every 4 hours She does take long-acting insulin at the longterm Hold insulin regimen for now, check A1c level Opiate doses should be adjusted as well because apneic spells were noted at the longterm with her obesity and sleep apnea she should avoid frequent opioid usage however this might be a big challenge because of her recent back pain CT head negative No signs of meningitis No signs of stroke Chest x-ray negative UA is pending Patient is vaccinated for COVID-19 Afebrile No leukocytosis Hemoglobin stable at 8.3 Saturating well on room air No need of ABG patient is awake alert oriented x3 GCS 15 Previous hemoglobin A1c level 4.9 05/28/2021, she might only need sliding scale, with a hemoglobin A1c of 4.9 I do not think long-acting insulin should be used DNR/DNI goals of care discussed with the patient she does not want any aggressive intervention such as chest compressions or intubation Consistent carb diet DVT prophylaxis patient takes paroxetine 20 mg daily because she is bedbound and needs Jovani lift Can be discharged tomorrow if clinically stable Attestations Medical Necessity Statement*: Anticipating discharge within 48 hours Time Spent in Patient Care: Greater than 35 minutes Coding Level of Care Code Acute Lye Peel Operator for Chg Fwd Diagnoses Back pain M54.9 Altered mental status R41.82 Hypoglycemia E16.2 Diabetes mellitus E11.9 Obesity E66.9
[2021-06-02] MEDS: dextrose 10% 1,000 ML 150 ML IV (17:18)
[2021-06-02 18:28] VITALS: BMI 41.5
[2021-06-02 18:42] VITALS: BP 104/66; PULSE 91; RESP 18; TEMP 36.6; O2SAT 96
[2021-06-02 19:05] LABS: Glucose Point of Care 136 mg/dL (70-110)
[2021-06-02 20:00] VITALS: BP 123/73; PULSE 81; RESP 18; TEMP 36.6; O2SAT 96
[2021-06-02] MEDS: ropinirole 0.25 mg Tablet 0.5 MG PO (20:18)
[2021-06-02 21:07] LABS: Glucose Point of Care 116 mg/dL (70-110)
[2021-06-02 21:20] VITALS: RESP 18
[2021-06-02] MEDS: oxyCODONE-APAP 5-325 mg Tablet 1 TAB PO (21:20)
[2021-06-02 23:21] LABS: Cortisol Random 12.94 ug/dL (2.47-19.5)
[2021-06-02 23:43] LABS: Estmated Average Glucose 88; Hemoglobin A1C 4.7 % (4.0-6.0)
[2021-06-03] VITALS (14 sets, daily range): BP systolic 87–112; BP diastolic 57–83; PULSE 82–109; RESP 16–22; TEMP 36.6–37.2; O2SAT 93–98
[2021-06-03 00:12] LABS: Glucose Point of Care 143 mg/dL (70-110)
[2021-06-03] MEDS: oxyCODONE-APAP 5-325 mg Tablet 1 TAB PO ×6 (00:54→23:06)
[2021-06-03] MEDS: dextrose 10% 1,000 ML 150 ML IV (02:21)
[2021-06-03 04:04] LABS: Glucose Point of Care 147 mg/dL (70-110)
[2021-06-03] MEDS: atorvastatin 40 mg Tablet 20 MG PO (07:46)
[2021-06-03] MEDS: rivaroxaban 10 mg Tablet 20 MG PO (07:47)
[2021-06-03] MEDS: aspirin 81 mg EC Tablet PO (07:47)
[2021-06-03] MEDS: spironolactone 25 mg Tablet PO ×2 (07:48→17:44)
[2021-06-03] MEDS: levothyroxine 125 mcg Tablet PO (07:48)
--- NOTE | 2021-06-03 07:49 | PC.NURSE ---
patient has no diet order. Notified Dr Perdomo.
[2021-06-03] MEDS: sennosides-docusate Tablet 1 TAB PO (08:04)
[2021-06-03 08:40] LABS: Glucose Point of Care 160 mg/dL (70-110)
--- NOTE | 2021-06-03 09:31 | PC.NURSE ---
called [facility] to see when patient's last BM was. Patient states it was the before her back surgery. Alumni Relations Coordinator spoke with Franci at [facility], last BM was 05/25/21.
--- NOTE | 2021-06-03 09:36 | PC.NURSE ---
notified Dr Perdomo that patient's last BM was 05/25/21
[2021-06-03 09:47] LABS: Basophils # 0.1 10^3/uL (0.0-0.1); Eosinophils # 0.3 10^3/uL (0.0-0.8); Eosinophils % 5.4 %; Hemoglobin 8.8 g/dL (11.5-15.3); Lymphocytes # 1.3 10^3/uL (0.8-4.8); Lymphocytes % 20.5 %; Mean Corpuscular HGB Conc 32.6 g/dL (30.0-36.0); Mean Corpuscular Hemoglobin 29.3 pg (28.0-34.0); Mean Platelet Volume 10.6 fL (7.4-10.4); Monocytes # 0.8 10^3/uL (0.2-0.9); Monocytes % 12.3 %; Neutrophils # 3.58 10^3/uL (1.8-7.7); Nucleated Red Blood Cells % 0 %; Platelet Count 210 10^3/cmm (130-400); Red Cell Distribution Width 17.2 % (12.1-15.1); White Blood Count 6.3 10^3/uL (4.0-10.0)
--- NOTE | 2021-06-03 09:56 | PC.CHAP ---
Pastoral Care Encounter/Spiritual Assessment Type of Contact [] Declined sales representative livestock visit [] Patient/Family/Request visit [] Outpatient visit [] Follow-up visit [] Physician referral [] Code/Alert [x] Routine visit [] Staff referral [] Actively dying [] Patient sleeping [] Family support [] [] Out of room [] Palliative care [] [] Receiving care in room [] Pre-surgical visit [] Trauma [] Long length of stay [] ICU visit [] Other: Relational/Emotional Strength [] Patient feels connected with others/family/visitors/staff [] Distress [] Loneliness/isolation [] Abandonment Spirituality of Patient [x] Person of Adali [] Attends Jehovah[employer] Witness of their Adali [x] Believes in Prayer [] Reads Bible or Zoroastrianism materials [] There are Spiritual issues to be addressed Infectious Disease Physician Interventions [x] Prayer [x] Active listening [x] Non-anxious presence [] Spiritual/emotional support [] Crisis/trauma care [] Spiritual counseling [] Bereavement support [] Provided bereavement packet [] Provided Bible/devotional materials [] Provided toy/stuffed animal, coloring book to patient or family member [] Provided Communion [] Anointing/[place] [] Salvation [x] Completed spiritual assessment [] Other: Impact on Illness or Injury [] Angry [] Fearful [] Anxious [] Often cries [] Exhaustion [] Unable to work [] Unable to attend religious [] Unable to walk/stand [] Unable to read [] Unable to drive [] Unable to eat/drink [] Unable to sleep [] Unable to be with family [] Patient intubated [] Other: Summary Time spent with patient
[2021-06-03 10:09] LABS: Alanine Aminotransferase 7 U/L (0-33); Alkaline Phosphatase 47 IU/L (35-105); Anion Gap 17.2 (5-19); Aspartate Amino Transferase 10 U/L (0-32); Blood Urea Nitrogen 7 mg/dL (8-23); C Reactive Protein 37.1 mg/L (0.0-4.9); Calcium 8.3 mg/dL (8.5-10.5); Carbon Dioxide 21 mmol/L (22-29); Chloride 103 mmol/L (98-107); Globulin 2.4 g/dL (1.3-4.6); Glucose 150 mg/dL (65-115); Magnesium 1.8 mg/dL (1.7-2.3); Osmolality Calculated 285 mOsm/kg (285-295); Potassium 4.2 mmol/L (3.5-5.1); Sodium 137 mmol/L (136-145); Total Bilirubin 0.4 mg/dL (0.15-1.2); Total Protein 5.4 g/dL (6.6-8.7)
--- NOTE | 2021-06-03 10:49 | PC.NURSE ---
[id number] Patient has not had BM since 05-25-21 per [facility]. I called to verify this morning when patient told me how long it had been. and she don't have a diet order
[2021-06-03 11:06] LABS: Procalcitonin 0.09 ng/mL (0-0.5)
--- NOTE | 2021-06-03 11:21 | PC.NURSE ---
patient turned on left side by staff. patient started crying and said she needs to be turned on her right side. junior underwriter explained the importance of turning from side to side to prevent pressure areas. patient insisted on being on right side.
[2021-06-03 11:45] LABS: Glucose Point of Care 155 mg/dL (70-110)
[2021-06-03 12:19] LABS: Blood Urine Neg (Negative); Glucose Urine UA Norm (Normal); Ketones Urine Negative (Negative); Protein Urine Neg (Negative); Urine Appearance SL Hazy (CLEAR); Urine Color Yellow (Yellow); pH Urine 8 (5-7)
[2021-06-03 12:20] LABS: Add Urine Microscopic? YES; Bilirubin Urine Neg (Negative); Leukocyte Esterase Urine Trace (Negative); Nitrate Urine Positive (Negative); Urobilinogen Urine Norm (Negative)
[2021-06-03 12:29] LABS: Add Urine Culture? No; Bacteria Urine 1+ /hpf; Squamous Epithelial Cell Urine 0-4 /hpf (0-5)
--- NOTE | 2021-06-03 13:53 | PM.PN ---
Subjective Subjective: Interval history: POD 7 Pt having mild Back pain, Denies new injuries to back following surgery. Vitals/I&O/Wt Last Vital Signs Temp 98.3 F 06/03/21 11:52 Pulse 98 06/03/21 11:52 Resp 18 06/03/21 11:52 BP 111/65 06/03/21 11:52 Pulse Ox 94 06/03/21 11:52 06/02/21 06/03/21 06/03/21 22:59 06:59 14:59 Intake Total 1120 / 1120 1000 / 2120 Output Total 1700 / 1700 2550 / 2550 Balance 1120 / 1120 -700 / 420 -2550 / -2550 Weight last 48 hrs Weight 242 lb Weight 242 lb Physical Exam Narrative: EXAM NARRATIVE: Patient presents alert and oriented x3 with a good general appearance normal normal affect. Normal coordination normal stability. Moderate tenderness around the incisional site with the incision appear to be healing nicely. No signs of erythema or drainage. No signs of infection. Patient denies any fevers or chills. 4/5 motor strength both lower extremities with negative straight leg raise bilaterally. Calves are supple no medial thigh tenderness. Pulses are 1+ at the dorsalis pedis and posterior tibial region. Good capillary refill throughout normal sensation light touch both lower extremities. Data : 06/03/21 09:20 06/03/21 09:20 Micro: Microbiology 06/03/21 09:25 Blood Culture - Preliminary Blood SPECIMEN COLLECTED 06/03/21 09:25 Blood Culture - Preliminary Blood SPECIMEN COLLECTED A&P Assessment and plan (1) Back pain: Status: Acute (2) S/P spinal fusion: Change the dressing wound appears to be healing nicely. We will see her back in the office in another week for suture removal. Continue with physical therapy to mobilize. Would encourage laxative choice to help her with a BM. Status: Acute Attestations Medical Necessity Statement*: Defer to medical team Coding Level of Care Code Acute Manual Arts Therapist for Roldan Winters Diagnoses Back pain M54.9 S/P spinal fusion Z98.1
[2021-06-03] MEDS: lactulose oral liq 20 gm/30 mL UDC PO (14:25)
--- NOTE | 2021-06-03 14:33 | PM.PN ---
Subjective Subjective: Interval history: Seen this morning. Patient states she is comfortable in bed but does get pain when she moves. She denies having a bowel movement for the last 10 days. Patient is currently running on D10 drip. She is unsure what caused her hypoglycemic episode. She does state that she is on Tresiba at home. And she has been on it for years. Hemoglobin A1c 4.9 on admission yesterday. Patient did have lumbar surgery 1 week ago and would like to have her sutures removed and bandage change. She is requesting to see Dr. Hudson in the hospital while she is here. Vitals/I&O/Wt Last Vital Signs Temp 98.3 F 06/03/21 11:52 Pulse 95 06/03/21 14:00 Resp 16 06/03/21 14:22 BP 111/65 06/03/21 11:52 Pulse Ox 97 06/03/21 14:22 06/02/21 06/03/21 06/03/21 22:59 06:59 14:59 Intake Total 1120 / 1120 1000 / 2120 480 / 480 Output Total 1700 / 1700 2550 / 2550 Balance 1120 / 1120 -700 / 420 -2070 / -2070 Weight last 48 hrs Weight 109.769 kg Weight 109.769 kg Physical Exam Narrative: EXAM NARRATIVE: General: Alert oriented x3, patient seen laying in bed on her left side. Large body habitus. HEENT: Normocephalic, atraumatic, EOMI, breathing comfortably. Cardio: Regular rate rhythm, normal S1-S2, no murmurs rubs gallops, unable to assess JVD. Respiratory: Good bilateral air entry, no wheezes no rhonchi appreciated GI: Abdomen soft, nontender, bowel sounds + Extremities: Pulses 2+, no edema, no cyanosis Back: Moderate tenderness around incisional site with incision appearing to be healing nicely. No signs of erythema or drainage. Sutures intact. Band-Aid dressing peeling off. Data : 06/03/21 09:20 06/03/21 09:20 Micro: Microbiology 06/03/21 09:25 Blood Culture - Preliminary Blood SPECIMEN COLLECTED 06/03/21 09:25 Blood Culture - Preliminary Blood SPECIMEN COLLECTED A&P Assessment and plan (1) S/P spinal fusion: Status: Acute (2) Diabetes mellitus: Status: Acute (3) Hypoglycemia: Status: Acute (4) Obesity: Status: Acute (5) Constipation: Status: Acute Additional A&P Information Metabolic encephalopathy related to hypoglycemic event We will discontinue D10 drip. We will restart patient's diet. We will check blood sugars every 4 hours. We will stop her long-acting insulin from home. A1c level 4.9. Patient should continue on her CPAP at nighttime. Continue patient's chronic indwelling catheter. CT head negative No signs of meningitis No signs of stroke Chest x-ray negative UA is pending Patient is vaccinated for COVID-19 Afebrile No leukocytosis Hemoglobin stable at 8.3 Saturating well on room air No need of ABG patient is awake alert oriented x3 GCS 15 DVT Prophylaxis Patient takes paroxetine 20 mg daily She is bedbound and needs Jovani lift. I have started her diet. Have started lactulose 30 g every 6 hours for constipation. Plan to discharge patient in the morning. Will monitor for today off the D10 drip to make sure blood sugar stays stable. Attestations Medical Necessity Statement*: Potential discharge in the morning. Coding Level of Care Code Acute Ecommerce Project Manager for Chg Fwd Diagnoses S/P spinal fusion Z98.1 Diabetes mellitus E11.9 Hypoglycemia E16.2 Obesity E66.9 Constipation K59.00
--- NOTE | 2021-06-03 17:19 | PC.NURSE ---
rcvd verbal order from Dr Mcnamara to stop Lactulose since patient is having BMs.
[2021-06-03 18:07] LABS: Glucose Point of Care 124 mg/dL (70-110)
[2021-06-03] MEDS: ondansetron 2 mg/ML SDV 2 mL 4 MG IVP (19:44)
[2021-06-03] MEDS: ropinirole 0.25 mg Tablet 0.5 MG PO (20:09)
[2021-06-03 21:30] LABS: Glucose Point of Care 126 mg/dL (70-110)
[2021-06-04] VITALS (10 sets, daily range): BP systolic 99–135; BP diastolic 64–75; PULSE 62–102; RESP 16–24; TEMP 36.7–36.9; O2SAT 94–98
[2021-06-04] MEDS: oxyCODONE-APAP 5-325 mg Tablet 1 TAB PO ×4 (03:14→16:19)
[2021-06-04 04:32] LABS: Glucose Point of Care 121 mg/dL (70-110)
[2021-06-04 06:34] LABS: Basophils # 0.1 10^3/uL (0.0-0.1); Basophils % 1.1 %; Eosinophils # 0.3 10^3/uL (0.0-0.8); Eosinophils % 4.4 %; Hematocrit 27.9 % (37.0-47.0); Lymphocytes # 1.6 10^3/uL (0.8-4.8); Lymphocytes % 26.1 %; Mean Corpuscular HGB Conc 32.3 g/dL (30.0-36.0); Mean Corpuscular Hemoglobin 28.8 pg (28.0-34.0); Mean Corpuscular Volume 89.4 fl (81-99); Mean Platelet Volume 10.8 fL (7.4-10.4); Monocytes # 0.8 10^3/uL (0.2-0.9); Monocytes % 12.1 %; Neutrophils # 3.31 10^3/uL (1.8-7.7); Neutrophils % 53.5 %; Nucleated Red Blood Cells % 0 %; Platelet Count 202 10^3/cmm (130-400); Red Blood Count 3.12 10^6/uL (4.1-5.3); Red Cell Distribution Width 17.2 % (12.1-15.1); White Blood Count 6.2 10^3/uL (4.0-10.0)
[2021-06-04 06:49] LABS: Anion Gap 16.2 (5-19); Blood Urea Nitrogen 5 mg/dL (8-23); Calcium 8.5 mg/dL (8.5-10.5); Carbon Dioxide 22 mmol/L (22-29); Chloride 104 mmol/L (98-107); Glucose 112 mg/dL (65-115); Magnesium 1.8 mg/dL (1.7-2.3); Osmolality Calculated 284 mOsm/kg (285-295); Potassium 4.2 mmol/L (3.5-5.1); Sodium 138 mmol/L (136-145)
[2021-06-04] MEDS: levothyroxine 125 mcg Tablet PO (07:45)
[2021-06-04] MEDS: sennosides-docusate Tablet 1 TAB PO (07:46)
[2021-06-04] MEDS: aspirin 81 mg EC Tablet PO (07:46)
[2021-06-04] MEDS: rivaroxaban 10 mg Tablet 20 MG PO (07:46)
[2021-06-04] MEDS: atorvastatin 40 mg Tablet 20 MG PO (07:46)
[2021-06-04] MEDS: spironolactone 25 mg Tablet PO (07:46)
[2021-06-04 09:56] LABS: Glucose Point of Care 137 mg/dL (70-110)
--- NOTE | 2021-06-04 11:05 | PC.NURSE ---
updated patient's daughter on patient and transferred phone call to patient's room.
--- NOTE | 2021-06-04 11:47 | PC.NURSE ---
Called [facility] and gave report to XIOMARA Koroma. Notified ELIZABETH Haynes to set up transport.
[2021-06-04 13:12] LABS: SARS Covid-2 Antigen Negative (Negative)
--- NOTE | 2021-06-04 14:46 | PM.DCS ---
Discharge Providers Date of Admission: 06/02/21 16:43 Date of Discharge: June 04, 2021 Attending Provider at Admission: Sophie Perdomo MD Attending Provider at Discharge: Nori Mcnamara MD Primary Care Provider: Kannan Contreras Diagnoses at Discharge Discharge Diagnosis (1) S/P spinal fusion: Status: Acute (2) Diabetes mellitus: Status: Acute (3) Hypoglycemia: Status: Acute (4) Obesity: Status: Acute (5) Constipation: Status: Acute Reason for Visit Reason for Visit: FOUND UNRESPONSIVE BUT ALERT NOW Hospital Course Hospital Course HPI as per Dr. Perdomo, Emerald Uriostegui is a 75 year old female is a resident of [facility], recently had back surgery by Dr. Hudson T10-s1 instrumentation, T10 pelvic fusion, laminectomy L2, L3 with partial facetectomies bone marrow aspirate right iliac crest removal of hardware from spine on 05/27/2021 presented today for chief complaint of altered mental status. Patient is stating that she has been bedbound since her surgery, she is a Jovani lift, she takes Tresiba. She is compliant with her medications and has been eating adequately. She has not noticed any fever, shortness of breath. She does have a chronic indwelling catheter. Today she felt fatigued and lethargic and slurred out of her bed on the floor. It was difficult to pull her up in the bed, at that time to apneic spells were noted by the nursing staff hence EMS was called. Patient is denying chest pain, syncopal events, strokelike symptoms. She is vaccinated for COVID-19. In the ER she was diagnosed with hyperglycemia glucose 33 she was given 1 amp of D50 which improved blood sugar to 90 which dropped to 60 after few hours, she was given second amp of D50 which improved her blood sugar to 90 again and she was started on D10 Hospital service was asked to admit for observation overnight because of hypoglycemia and long-acting [facility]. She was not given Narcan, pupils are equal and reactive, chest x-ray negative for any kind of pneumonia, urinalysis is pending, She does take opioids every 4 hours for her back pain at the facility CT head negative She is not confused at the time of my evaluation Course: Patient was kept on D10 drip and her blood sugar did stabilize. She did not get hypoglycemic again. Drip was turned off and she was monitored for another 24 hours to make sure her blood sugar stays stable. Blood sugars have stayed stable off the insulin and Metformin. We will be sending her home without either of these. She is to follow-up with her primary care physician within a week to discuss further management of her diabetes. Hemoglobin A1c checked twice 4.3-4.6 range during hospital stay. She was also seen by Dr. Trinh's team. Back wound from surgery was redressed and evaluated. Sutures will remain in place. She is to follow-up with them in 1 week to have suture removal. Urine culture was also positive for gram-negative rods. Previously she has had E. coli UTI sensitive to ceftriaxone and Macrobid. Due to her allergy to ceftriaxone she will be sent home on Macrobid 100 mg twice daily for 7 days. Physical Exam Narrative: EXAM NARRATIVE: General: Alert oriented x3, HEENT: Normocephalic, atraumatic, EOMI, breathing comfortably. Cardio: Regular rate rhythm, normal S1-S2, no murmurs rubs gallops, Respiratory: Good bilateral air entry, no wheezes no rhonchi appreciated GI: Abdomen soft, nontender, bowel sounds + Extremities: Pulses 2+, no edema, no cyanosis [place] is place Discharge Data Data Completed and Pending: Completed Studies During Hospitalization Category Date Time Status CT head wo con* [id number] Urgent Cat Scan 06/02/21 11:[address] lumbar spine w o con* [id number] Urgen t Cat Scan 06/02/21 11:[address] pelvis wo con [id number] Urgent Cat Scan 06/02/21 11:[address] thoracic spin wo con* [id number] Urge nt Cat Scan 06/02/21 11:52 Completed XR chest 1V shaylee ble [id number] Urgent Exams 06/02/21 11:46 Completed Pending at discharge Category Date Time Status Blood Culture Sta t Lab 06/03/21 09:25 Results Urine Culture Sta t Lab 06/03/21 11:57 Results Labs from last 24 hours 06/04/21 06/04/21 06/04/21 12:10 09:54 05:44 WBC RBC Hgb Hct MCV MCH MCHC RDW Plt Count MPV Neut % (Auto) Lymph % (Auto) [place] % (Auto) Eos % (Auto) Baso % (Auto) Neut # (Auto) Lymph # (Auto) [place] # (Auto) Eos # (Auto) Baso # (Auto) Nucleated RBC % (a uto) Nucleated RBCs # Sodium 138 Potassium 4.2 Chloride 104 Carbon Dioxide 22 Anion Gap 16.2 BUN 5 L Creatinine 0.4 L GFR Calculation Not Reportable Glucose 112 POC Glucose 137 H Calculated Osmolal ity 284 L Calcium 8.5 Magnesium 1.8 SARS-CoV-2 Ag (Rap id) Negative 06/04/21 06/04/21 06/03/21 05:44 04:29 20:49 WBC 6.2 RBC 3.12 L Hgb 9.0 L Hct 27.9 L MCV 89.4 MCH 28.8 MCHC 32.3 RDW 17.2 H Plt Count 202 MPV 10.8 H Neut % (Auto) 53.5 Lymph % (Auto) 26.1 [place] % (Auto) 12.1 Eos % (Auto) 4.4 Baso % (Auto) 1.1 Neut # (Auto) 3.31 Lymph # (Auto) 1.6 [place] # (Auto) 0.8 Eos # (Auto) 0.3 Baso # (Auto) 0.1 Nucleated RBC % (a uto) 0 Nucleated RBCs # 0.0 Sodium Potassium Chloride Carbon Dioxide Anion Gap BUN Creatinine GFR Calculation Glucose POC Glucose 121 H 126 H Calculated Osmolal ity Calcium Magnesium SARS-CoV-2 Ag (Rap id) 06/03/21 18:04 WBC RBC Hgb Hct MCV MCH MCHC RDW Plt Count MPV Neut % (Auto) Lymph % (Auto) [place] % (Auto) Eos % (Auto) Baso % (Auto) Neut # (Auto) Lymph # (Auto) [place] # (Auto) Eos # (Auto) Baso # (Auto) Nucleated RBC % (a uto) Nucleated RBCs # Sodium Potassium Chloride Carbon Dioxide Anion Gap BUN Creatinine GFR Calculation Glucose POC Glucose 124 H Calculated Osmolal ity Calcium Magnesium SARS-CoV-2 Ag (Rap id) Vitals: Last Vital Signs Temp 98.4 F 06/04/21 07:35 Pulse 102 H 06/04/21 11:49 Resp 22 H 06/04/21 11:49 BP 125/75 06/04/21 11:49 Pulse Ox 97 06/04/21 11:49 Discharge Plan Discharge Patient Disposition: Xfer SNF Condition: Stable Prescriptions: New lidocaine 5 % adhesive patch,medicated 1 patch topical DAILY PRN (Reason: pain) 10 Days Qty: 10 RF: 0 Biofreeze (menthol) 5 % gel 1 ea topical BID PRN (Reason: pain) 10 Days Qty: 1 RF: 0 Macrobid 100 mg capsule 100 mg PO BID 5 Days Qty: 10 RF: 0 Continued levothyroxine 100 mcg capsule 125 mcg PO DAILY RF: 0 acetaminophen [Tylenol] 325 mg tablet 325 mg PO Q4-5H PRN (Reason: Pain) RF: 0 aspirin 81 mg tablet,delayed release (DR/EC) 81 mg PO DAILY RF: 0 Xarelto 20 mg tablet 20 mg PO DAILY Qty: 90 RF: 3 spironolactone 25 mg tablet 25 mg PO BID RF: 0 furosemide 40 mg tablet 40 mg PO DAILY PRN (Reason: Edema) Qty: 0 RF: 0 sennosides 15 mg Tablet 15 mg PO DAILY RF: 0 ropinirole 0.5 mg tablet 0.5 mg PO BEDTIME RF: 0 Robitussin 10 ml PO BEDTIME PRN (Reason: Cough) RF: 0 simvastatin 40 mg tablet 40 mg PO DAILY RF: 0 ascorbic acid (vitamin C) [Vitamin C] 500 mg Tablet 500 mg PO DAILY RF: 0 metoprolol tartrate 25 mg tablet 25 mg PO DAILY RF: 0 pregabalin 300 mg capsule 300 mg PO BID RF: 0 omega 8-ret-rqb-fish oil [Fish Oil] 1,000 mg (120 mg-180 mg) Capsule 2 cap PO DAILY RF: 0 baclofen 10 mg tablet 10 mg PO DAILY RF: 0 Held baclofen 10 mg tablet 5 mg PO BIDWMEAL RF: 0 Hold Instructions: see pcp magnesium oxide 250 mg magnesium Tablet 250 mg PO DAILY RF: 0 Hold Instructions: see pcp fenofibrate 160 mg tablet 160 mg PO DAILY RF: 0 Hold Instructions: see pcp Discontinued metformin 1,000 mg tablet 1,000 mg PO BID RF: 0 oxycodone-acetaminophen 7.5-325 mg tablet 1 tab PO Q4-5H PRN (Reason: Moderate Pain (Scale Score 5-6)) RF: 0 oxycodone-acetaminophen [Percocet] 10-325 mg tablet 1 - 2 tab PO Q4H PRN (Reason: pain) RF: 0 Tresiba FlexTouch U-100 100 unit/mL (3 mL) insulin pen 52 unit SUBCUT DAILY RF: 0 Discharge Orders: Discharge Order (Routine); Ordered 06/04/21 Ordered By: Nori Mcnamara Referrals: Los Hudson DO [Physician] - 06/13/21 10:30 am Kannan Contreras [Primary Care Provider] - 1-3 days Discharge Diet: Advance as tolerated Discharge Activity: Resume usual activity Patient Instructions: Lidocaine (On the skin), Camphor/Menthol (On the skin) (Arctic Relief, Biofreeze, [place], [place]) Activity Restrictions/Additional Instructions: Please come back to the emergency room you have any weakness in your arms or legs, if you have any bladder or bowel problem you have any worsening back pain, fever or chills, any new or concerning complaints. Please recheck blood sugars at jail and make sure they remain stable. If running high, call your doctor to possibly restart metformin. Hemoglobin AIC 4.9 in hospital a this visit. Discharge Attestations Time Spent in Discharge Care*: less than 30 min Quality Metrics Clinical Quality Measures During this hospital stay, did patient experience: None Coding Level of Care Code Acute Chg FW DC note Diagnoses S/P spinal fusion Z98.1 Diabetes mellitus E11.9 Hypoglycemia E16.2 Obesity E66.9 Constipation K59.00
[2021-06-04 15:57] LABS: Glucose Point of Care 117 mg/dL (70-110)
[2021-06-04] MEDS: nitrofurantoin SR (BID) 100 mg Capsule PO (16:19)
--- NOTE | 2021-06-04 16:30 | PC.NURSE ---
patient on departure was 8. bond writer notified EMS that percocet was given at 1615 and to please notified SNF.
--- NOTE | 2021-06-06 13:19 | PM.MISC ---
Miscellaneous Note Purpose of Documentation: Urine results came back proteus in urine resistant to macrobid will prescribe cefdinir 300 mg bid x 7 days called [facility] to update. left number to call back will notify them of chnage in ABX therapy. talked to pharmacy. cross reactivity with 3rd gen cephalosporin is quite low so therefore we can try cefdinir. patient had some hives with 2nd gen cephalosporin cefuroxime. proteus resistant to levaquin, macrobid, tmp-smx, tetracycline as well.
--- NOTE | 2021-06-10 15:13 | PC.SOCIAL ---
called [facility] regarding cefdinir, spoke with patients nurse Damaris, she wasn't aware and they didn't receive the medications. automobile and property underwriter gave her the cefdinir dose and instructions.
== END 2021-06-04 16:33 | disposition skilled nursing facility (03) ==
LOC: ER 16:45 → MEDSURG 16:58
PROVIDERS: Admitting Provider Internal Medicine; Emergency Provider Emergency Medicine; PCP Family Medicine; Visit Provider Internal Medicine
DX: E11.649 Type 2 diabetes mellitus with hypoglycemia without coma (principal); R41.82 Altered mental status, unspecified; J44.9 Chronic obstructive pulmonary disease, unspecified; R10.2 Pelvic and perineal pain; E66.9 Obesity, unspecified; Z68.42 Body mass index [BMI] 45.0-49.9, adult; N39.0 Urinary tract infection, site not specified; B96.4 Proteus (mirabilis) (morganii) as the cause of diseases classified elsewhere; M54.9 Dorsalgia, unspecified; Z98.1 Arthrodesis status; Z79.4 Long term (current) use of insulin; Z79.82 Long term (current) use of aspirin
CPT/HCPCS: 36415; 36416; 70450; 71045; 72128; 72131; 72192; 80048; 80053; 80307; 81001; 82533; 82550; 82962; 83036; 83690; 83735; 84145; 84439; 84443; 84484; 85025; 86140; 87040; 87077; 87086; 87186; 87426; 93005; 94664; 96361; 96374; 96375; 99285; G0378; J2405; J3490; J7030

== ENCOUNTER → 2021-09-19 09:18 | Outpatient (BNVA) | payer MEDICARE, MEDICAID, SELFPAY | PROVIDERS: PCP Family Medicine; Visit Provider Orthopaedic Surgery | DX: Z48.89 Encounter for other specified surgical aftercare (principal); Z98.1 Arthrodesis status; M48.56XA Collapsed vertebra, not elsewhere classified, lumbar region, initial encounter for fracture | CPT/HCPCS: 72070; 72100 ==

== ENCOUNTER 2021-10-06 23:10 | Emergency (ER) | payer MEDICARE, MEDICAID, SELFPAY ==
[2021-10-06 23:17] VITALS: BP 150/67; PULSE 97; RESP 16; TEMP 36.4; O2SAT 97; BMI 50.1
[2021-10-06] MEDS: naloxone 0.4 mg/ml SDV IVP (23:22)
--- NOTE | 2021-10-06 23:23 | PC.NURSE ---
good response to Narcan noted.
--- NOTE | 2021-10-06 23:26 | XRR_ITS ---
PROCEDURE INFORMATION: Exam: XR Chest Exam date and time: 10/07/2021 12:09 AM Age: 76 years old Clinical indication: Other: AMS TECHNIQUE: Imaging protocol: XR of the chest. Views: 1 view. COMPARISON: CR XR chest 1V portable [id number] 06/02/2021 12:58 PM FINDINGS: Lungs: Central interstitial markings are indistinct. Central vessels are prominent. There is ground-glass opacity in the lower lungs bilaterally. There is no focal consolidation. Pleural spaces: There is no pleural effusion or pneumothorax. Heart/Mediastinum: There is mild enlargement of the cardiac silhouette. Bones/joints: Lower cervical and thoracolumbar fusion hardware noted. XR/XR chest 1V portable [id number] IMPRESSION: Interstitial edema.
[2021-10-06] MEDS: sodium chloride 0.9% 1,000 ML 999 ML IV (23:50)
[2021-10-06 23:58] LABS: Basophils # 0.1 10^3/uL (0.0-0.1); Eosinophils # 0.2 10^3/uL (0.0-0.8); Eosinophils % 2.3 %; Hematocrit 32.8 % (37.0-47.0); Hemoglobin 10.4 g/dL (11.5-15.3); Lymphocytes # 1.5 10^3/uL (0.8-4.8); Lymphocytes % 19.9 %; Mean Corpuscular HGB Conc 31.7 g/dL (30.0-36.0); Mean Corpuscular Hemoglobin 25.1 pg (28.0-34.0); Mean Platelet Volume 10.3 fL (7.4-10.4); Monocytes # 0.7 10^3/uL (0.2-0.9); Monocytes % 9.9 %; Neutrophils # 4.81 10^3/uL (1.8-7.7); Neutrophils % 66.2 %; Nucleated Red Blood Cells % 0 %; Platelet Count 149 10^3/cmm (130-400); Red Blood Count 4.15 10^6/uL (4.1-5.3); Red Cell Distribution Width 17.6 % (12.1-15.1); White Blood Count 7.3 10^3/uL (4.0-10.0)
[2021-10-07 00:15] LABS: Alanine Aminotransferase 8 U/L (0-33); Albumin Level 3.8 g/dL (3.5-5.2); Alkaline Phosphatase 86 IU/L (35-105); Anion Gap 14.9 (5-19); Aspartate Amino Transferase 11 U/L (0-32); Blood Urea Nitrogen 36 mg/dL (8-23); Calcium 8.8 mg/dL (8.5-10.5); Carbon Dioxide 23 mmol/L (22-29); Chloride 102 mmol/L (98-107); Globulin 3.1 g/dL (1.3-4.6); Glucose 127 mg/dL (65-115); Osmolality Calculated 290 mOsm/kg (285-295); Potassium 4.9 mmol/L (3.5-5.1); Sodium 135 mmol/L (136-145); Total Bilirubin 0.2 mg/dL (0.15-1.2); Total Protein 6.9 g/dL (6.6-8.7)
--- NOTE | 2021-10-07 00:20 | W.ED.AMS ---
HPI - Altered Mental Status General: Chief Complaint: Altered Mental Status Stated Complaint: LOW BP Time Seen by Provider: 10/06/21 23:17 Source: patient and EMS History of Present Illness: 76-year-old female with decreased responsiveness in the [facility] and low blood pressure evidently for nursing staff there. EMS was called, she was brought here lethargic. My nursing staff had to sternal rub her to arouse her. After administration of 0.4 mg of Narcan IV, she is awake and answering questions appropriately. She states I do not know why they did that, I just want to be in my bed, there is nothing wrong with me . complaint: altered mental status Onset (ago): hour(s) Timing confirmed by: caregiver Severity: moderate Context: other Treatments prior to arrival: IV fluid Review of Systems Const: Denies: fever(s) Card: Denies: chest pain Resp: Denies: dyspnea GI: Denies: abdominal pain, nausea or vomiting Neuro: Reports: confusion; Denies: headache(s) PFSH ED PFSH: Medical History Arrhythmia Carpal tunnel syndrome Cervical cancer Chronic back pain Chronic pain COPD (chronic obstructive pulmonary disease) Coronary artery disease Diabetes mellitus Diabetic neuropathy Diastolic heart failure DJD (degenerative joint disease) Encounter for long-term opiate analgesic use Hyperlipidemia Myocardial infarction Obesity Obstructive sleep apnea Opioid contract exists Ovarian cancer Paroxysmal atrial fibrillation Smoker Thyroid disease Surgical History History of angioplasty History of back surgery History of carpal tunnel surgery History of cholecystectomy History of coronary artery stent placement History of hysterectomy History of knee surgery Family History Father No problems noted. Social History Smoking and tobacco status: current every day smoker Smoking risk assessment/counseling performed?: Yes Alcohol intake: former History of recent travel: No Physical Exam Const: COMMON NORMALS: alert GENERAL APPEARANCE: lethargic (mildly) and frail appearing NUTRITIONAL APPEARANCE: obese ORIENTATION/CONSCIOUSNESS: Yes lethargic (mildly) HENMT: COMMON NORMALS: normocephalic, atraumatic and Normal external nose present HEAD & SCALP: normocephalic and atraumatic FACE & SINUS: normal facial exam NOSE: Normal external nose present MOUTH: Normal oral and palatal mucosa present Eye: COMMON NORMALS: Equal, round and reactive pupils present and EOMs intact bilaterally PUPIL: Yes Equal, round and reactive pupils present Chest: COMMONS NORMALS: normal inspection of the chest Resp: COMMON NORMALS: normal respiratory effort, No use of accessory muscles and clear to auscultation bilaterally AUSCULTATION: clear to auscultation bilaterally Cardio: COMMON NORMALS: regular rate and regular rhythm RATE: regular rate RHYTHM: regular rhythm GI: COMMON NORMALS: Normal to inspection, nondistended, normoactive bowel sounds present, Soft to palpation and non-tender PALPATION: Yes Soft to palpation Extremity: GENERAL: Yes edema Neuro: JENNIFER COMA SCALE: document GCS findings (after narcan) Jennifer coma scale eye opening: Spontaneous Jennifer coma scale verbal response: Orientated Jennifer coma scale motor response: Obey commands Jennifer coma scale total score: 15 SENSORIUM/ORIENTATION: Yes alert and Yes lethargic (mildly) Psych: COMMON NORMALS: cooperative Course Vital Signs: Vital signs: Vital Signs Temperature 98.2 F 10/07/21 00:41 Pulse Rate 88 10/07/21 01:56 Respiratory Rate 16 10/07/21 01:56 Blood Pressure 138/62 10/07/21 01:56 Pulse Oximetry 97 10/07/21 01:56 MDM - Altered Mental Status Medical Decision Making Patient woke immediately following 0.4 mg Narcan administration IV. This was done on arrival. We are 1.5 hours out from administration, with no sign of decline in mental status. Hemoglobin is 10.4. Sodium 135. Creatinine is 1.0 with a BUN of 36. Chest x-ray shows very mild vascular congestion. We will have them hold her Percocet for the next 24 hours, then consider restarting at a lower dose if needed. Lab Data : 10/06/21 23:50 10/06/21 23:50 Radiology Impressions Chest X-Ray 10/06/21 23:26 IMPRESSION: Interstitial edema. Laboratory Results WBC 7.3 10^3/uL (4.0-10.0) 10/06/21 23:50 RBC 4.15 10^6/uL (4.1-5.3) 10/06/21 23:50 Hgb 10.4 g/dL (11.5-15.3) L 10/06/21 23:50 Hct 32.8 % (37.0-47.0) L 10/06/21 23:50 MCV 79.0 fl (81-99) L 10/06/21 23:50 MCH 25.1 pg (28.0-34.0) L 10/06/21 23:50 MCHC 31.7 g/dL (30.0-36.0) 10/06/21 23:50 RDW 17.6 % (12.1-15.1) H 10/06/21 23:50 Plt Count 149 10^3/cmm (130-400) 10/06/21 23:50 MPV 10.3 fL (7.4-10.4) 10/06/21 23:50 Neut % (Auto) 66.2 % 10/06/21 23:50 Lymph % (Auto) 19.9 % 10/06/21 23:50 [place] % (Auto) 9.9 % 10/06/21 23:50 Eos % (Auto) 2.3 % 10/06/21 23:50 Baso % (Auto) 1.0 % 10/06/21 23:50 Neut # (Auto) 4.81 10^3/uL (1.8-7.7) 10/06/21 23:50 Lymph # (Auto) 1.5 10^3/uL (0.8-4.8) 10/06/21 23:50 [place] # (Auto) 0.7 10^3/uL (0.2-0.9) 10/06/21 23:50 Eos # (Auto) 0.2 10^3/uL (0.0-0.8) 10/06/21 23:50 Baso # (Auto) 0.1 10^3/uL (0.0-0.1) 10/06/21 23:50 Nucleated RBC % (auto) 0 % 10/06/21 23:50 Nucleated RBCs # 0.0 /100WBC 10/06/21 23:50 Sodium 135 mmol/L (136-145) L 10/06/21 23:50 Potassium 4.9 mmol/L (3.5-5.1) 10/06/21 23:50 Chloride 102 mmol/L (98-107) 10/06/21 23:50 Carbon Dioxide 23 mmol/L (22-29) 10/06/21 23:50 Anion Gap 14.9 (5-19) 10/06/21 23:50 BUN 36 mg/dL (8-23) H 10/06/21 23:50 Creatinine 1.0 mg/dL (0.5-0.9) H 10/06/21 23:50 GFR Calculation Not Reportable 10/06/21 23:50 Glucose 127 mg/dL (65-115) H 10/06/21 23:50 Calculated Osmolality 290 mOsm/kg (285-295) 10/06/21 23:50 Calcium 8.8 mg/dL (8.5-10.5) 10/06/21 23:50 Total Bilirubin 0.2 mg/dL (0.15-1.2) 10/06/21 23:50 AST 11 U/L (0-32) 10/06/21 23:50 ALT 8 U/L (0-33) 10/06/21 23:50 Alkaline Phosphatase 86 IU/L (35-105) 10/06/21 23:50 Total Protein 6.9 g/dL (6.6-8.7) 10/06/21 23:50 Albumin 3.8 g/dL (3.5-5.2) 10/06/21 23:50 Globulin 3.1 g/dL (1.3-4.6) 10/06/21 23:50 Discharge Plan Discharge Patient Disposition: Home Clinical Impression: Altered mental status Qualifiers: Altered mental status type: stupor Qualified Code(s): R40.1 - Stupor Accidental overdose Qualifiers: Encounter type: initial encounter Qualified Code(s): T50.901A - Poisoning by unspecified drugs, medicaments and biological substances, accidental (unintentional), initial encounter Condition: Stable Prescriptions: No Action levothyroxine 100 mcg capsule 125 mcg PO DAILY 0RF acetaminophen [Tylenol] 325 mg tablet 325 mg PO Q4-5H PRN (Reason: Pain) 0RF aspirin 81 mg tablet,delayed release (DR/EC) 81 mg PO DAILY 0RF Xarelto 20 mg tablet 20 mg PO DAILY Qty: 90 3RF spironolactone 25 mg tablet 25 mg PO BID 0RF furosemide 40 mg tablet 40 mg PO DAILY PRN (Reason: Edema) Qty: 0 0RF sennosides 15 mg Tablet 15 mg PO DAILY 0RF ropinirole 0.5 mg tablet 0.5 mg PO BEDTIME 0RF Robitussin 10 ml PO BEDTIME PRN (Reason: Cough) 0RF simvastatin 40 mg tablet 40 mg PO DAILY 0RF ascorbic acid (vitamin C) [Vitamin C] 500 mg Tablet 500 mg PO DAILY 0RF baclofen 10 mg tablet 5 mg PO BIDWMEAL 0RF Hold Instructions: see pcp Rx Instructions: BREAKFAST AND LUNCH magnesium oxide 250 mg magnesium Tablet 250 mg PO DAILY 0RF Hold Instructions: see pcp metoprolol tartrate 25 mg tablet 25 mg PO DAILY 0RF fenofibrate 160 mg tablet 160 mg PO DAILY 0RF Hold Instructions: see pcp pregabalin 300 mg capsule 300 mg PO BID 0RF omega 0-azs-uwj-fish oil [Fish Oil] 1,000 mg (120 mg-180 mg) Capsule 2 cap PO DAILY 0RF baclofen 10 mg tablet 10 mg PO DAILY 0RF Discharge Orders: Discharge ED (Routine); Ordered 10/07/21 Ordered By: Mack Bella Referrals: Kannan Contreras [Primary Care Provider] - Discharge Diet: Advance as tolerated Discharge Activity: Increase activity as tolerated Patient Instructions: Opioid Safety Activity Restrictions/Additional Instructions: Return for worsening mental status, fever, weakness, other concerning symptoms. Check blood pressures twice daily for the next 2 days. Return for consistently low blood pressures. Hold Percocet for at least 24 hours. If restarting medication, consider restarting at lower dose. Coding Level of Care Code ED Industrial Automation Engineer for [place] Fwd Exam Comprehensive
[2021-10-07 00:41] VITALS: BP 125/66; PULSE 77; RESP 15; TEMP 36.8; O2SAT 97
[2021-10-07 01:56] VITALS: BP 138/62; PULSE 88; RESP 16; O2SAT 97
[2021-10-07 05:50] VITALS: BP 135/70; PULSE 86; RESP 16; TEMP 36.8; O2SAT 97
[2021-10-07 08:00] VITALS: BP 122/73; PULSE 76; RESP 16; O2SAT 95
[2021-10-07 09:05] VITALS: BP 122/73; PULSE 76; RESP 16; O2SAT 95
== END 2021-10-07 08:22 | disposition home or self-care (01) ==
PROVIDERS: Emergency Provider Emergency Medicine; PCP Family Medicine
DX: R41.82 Altered mental status, unspecified (principal); T50.901A Poisoning by unspecified drugs, medicaments and biological substances, accidental (unintentional), initial encounter; Y92.129 Unspecified place in nursing home as the place of occurrence of the external cause; F17.200 Nicotine dependence, unspecified, uncomplicated
CPT/HCPCS: 71045; 80053; 85025; 96360; 99284; J2310; J7030

== ENCOUNTER → 2021-12-19 12:49 | Outpatient (BNVA) | payer MEDICARE, MEDICAID, SELFPAY | PROVIDERS: PCP Family Medicine; Visit Provider Orthopaedic Surgery | DX: Z48.89 Encounter for other specified surgical aftercare (principal); Z98.1 Arthrodesis status | CPT/HCPCS: 72072; 72100 ==

== ENCOUNTER 2022-07-06 03:02 | Emergency (ER) | payer MEDICARE, MEDICAID, SELFPAY ==
[2022-07-06] VITALS (8 sets, daily range): BP systolic 103–141; BP diastolic 50–62; PULSE 79–92; RESP 17–23; O2SAT 93–97; BMI 47.3
--- NOTE | 2022-07-06 03:13 | ECG_ITS ---
[facility] Test Date: 2022-07-06 Pat Name: Emerald Uriostegui Department: Room: Gender: Female International Flight Attendant: : 1945 Requested By: Mack Kearney Order Number: [id number] Saurav MD: Cindy Millan M.D. Measurements Intervals [place] Rate: 81 P: 61 TN: 187 QRS: 65 QRSD: 86 T: 39 QT: 346 QTc: 403 Interpretive Statements SINUS RHYTHM POSSIBLE ANTERIOR MYOCARDIAL INFARCTION , PROBABLY OLD [30 ms Q WAVE IN V3/V4, OR R < 0.2 mV IN V4] Compared to ECG 06/02/2021 11:58:37 Myocardial infarct finding now present T-wave abnormality no longer present Electronically Signed On 07-06-2022 8:13:51 LEAD SYSTEMS DEVELOPER by Cindy Millan M.D. [email or web address]/store/[id number]
--- NOTE | 2022-07-06 03:13 | XRR_ITS ---
PROCEDURE INFORMATION: Exam: XR Chest Exam date and time: 07/06/2022 4:06 AM Age: 76 years old Clinical indication: Pain; Chest pressure; Additional info: Cp TECHNIQUE: Imaging protocol: Radiologic exam of the chest. Views: 1 view. COMPARISON: CR XR chest 1V portable [id number] 10/07/2021 12:09 AM FINDINGS: Lungs: There are some linear opacities present in the lower hemithoraces, left more prominent than right likely representing atelectasis. Pleural spaces: Unremarkable. No pleural effusion. No pneumothorax. Heart/Mediastinum: Unremarkable. No cardiomegaly. Bones/joints: Status post ACDF of the mid and lower cervical spine. Pedicle screws and posterior rods are seen within the thoracolumbar junction. XR/XR chest 1V portable [id number] IMPRESSION: Linear opacities in the lower hemithoraces bilaterally, left more prominent than right compatible with atelectasis. Infiltrates and left basilar pneumonia cannot be entirely excluded.
--- NOTE | 2022-07-06 03:14 | ED_ITS ---
Documented by User: Mack Bella DO 07/06/22 18:23 HPI - Chest Pain General: Chief Complaint: Chest Pain Stated Complaint: CP, nausea Time Seen by Provider: 07/06/22 03:03 Source: patient History of Present Illness: 76-year-old female with a distant history of coronary disease evidently. She notes that she had a stent in the late 90s. She has not had problems since she says. She developed chest pain around 7 PM. It seemed to worsen over time. EMS was called. She rates her pain around an 8. She says she is mildly short of breath. No nausea or vomiting. MD complaint: chest pain Pertinent past history: coronary artery disease Onset (ago): hour(s) Timing of current episode: constant and still present Onset: during rest Pain location: substernal Pain radiation: neck and jaw/teeth Severity: moderate Quality: aching Relieving factors: nothing Exacerbating factors: nothing Associated symptoms: Reports dyspnea and leg edema; Deny abdominal pain, diaphoresis, fever(s), nausea, syncope or vomiting Treatment prior to arrival: other Review of Systems Const: Denies: fever(s) or diaphoresis ENMT: Denies: throat pain Card: Reports: chest pain; Denies: syncope Resp: Reports: dyspnea GI: Denies: abdominal pain, nausea or vomiting Musc: Reports: neck pain Neuro: Denies: headache(s) PFSH ED PFSH: Medical History Arrhythmia Carpal tunnel syndrome Cervical cancer Chronic back pain Chronic pain COPD (chronic obstructive pulmonary disease) Coronary artery disease Diabetes mellitus Diabetic neuropathy Diastolic heart failure DJD (degenerative joint disease) Encounter for long-term opiate analgesic use Hyperlipidemia Myocardial infarction Obesity Obstructive sleep apnea Opioid contract exists Ovarian cancer Paroxysmal atrial fibrillation Smoker Thyroid disease Surgical History History of angioplasty History of back surgery History of carpal tunnel surgery History of cholecystectomy History of coronary artery stent placement History of hysterectomy History of knee surgery Family History Father No problems noted. Social History Smoking and tobacco status: current every day smoker Smoking risk assessment/counseling performed?: Yes Alcohol intake: former History of recent travel: No Physical Exam Const: GENERAL APPEARANCE: cooperative, anxious, ill appearing (mildly) and frail appearing NUTRITIONAL APPEARANCE: obese ORIENTATION/CONSCIOUSNESS: Yes awake, Yes oriented to person and Yes oriented to place HENMT: COMMON NORMALS: normocephalic and Normal external nose present HEAD & SCALP: normocephalic FACE & SINUS: normal facial exam and face symmetric NOSE: Normal external nose present Eye: COMMON NORMALS: Equal, round and reactive pupils present and EOMs intact bilaterally PUPIL: Yes Equal, round and reactive pupils present Neck/C-Spine: GENERAL: Yes trachea midline Chest: CHEST: Yes Symmetrical chest wall rise Resp: COMMON NORMALS: normal respiratory effort, No retractions, No use of accessory muscles and clear to auscultation bilaterally AUSCULTATION: clear to auscultation bilaterally Cardio: COMMON NORMALS: regular rate and regular rhythm RATE: regular rate RHYTHM: regular rhythm GI: COMMON NORMALS: Normal to inspection, nondistended, normoactive bowel sounds present Extremity: GENERAL: Yes edema Neuro: FRANCIS COMA SCALE: document GCS findings Mullins coma scale eye opening: Spontaneous Mullins coma scale verbal response: Orientated Mullins coma scale motor response: Obey commands Mullins coma scale total score: 15 SENSORIUM/ORIENTATION: Yes oriented to person and Yes oriented to place SENSORY EXAM: Yes extremities (intact) Psych: COMMON NORMALS: speech normal SPEECH: Yes normal speech Skin: COMMON NORMALS: no rashes or lesions noted GENERAL SKIN EXAM: no rashes or lesions noted Course Vital Signs: Vital signs: Vital Signs Pulse Rate 82 07/06/22 10:03 Respiratory Rate 20 H 07/06/22 10:03 Blood Pressure 103/56 07/06/22 10:03 Pulse Oximetry 94 07/06/22 10:03 Oxygen Delivery Me thod 07/06/22 08:01 Oxygen Flow Rate 2 07/06/22 08:01 MDM - Chest Pain Medical Decision Making 76-year-old lady who presents with chest pain. She has no acute ST changes on her EKG. She was given Nitropaste with relief of her chest discomfort, however it caused a headache evidently. Her blood pressure is 122/62 heart rate of 90 saturations 94% on room air. Her chest x-ray shows some basilar atelectasis. Her CBC is normal. Her BMP shows a glucose of 261 and is otherwise unremarkable. CT of the abdomen pelvis is performed due to significant elevation in liver enzymes which were unexplained otherwise. It shows an enlarged spleen and fatty infiltration with no ductal dilatation. She has a history of a cholecystectomy. Pancreas is normal by CT. Lipase is pending. Lactic acid is minimally elevated at 2.4, alcohol is less than 10 hepatitis panel is negative Tylenol level is negative. Elevation of LFTs is of unknown origin at this point. Repeating a fluid bolus, and will repeat in case of lab air. Patient is now asking to go home. Lab Data 07/06/22 03:48 07/06/22 03:48 Radiology Impressions Chest X-Ray 07/06/22 03:13 IMPRESSION: Linear opacities in the lower hemithoraces bilaterally, left more prominent than right compatible with atelectasis. Infiltrates and left basilar pneumonia cannot be entirely excluded. Abdomen/Pelvis CT 07/06/22 04:53 IMPRESSION: 1. Mild fatty infiltration of the liver 2. Splenomegaly 3. Mild diverticulosis of the sigmoid colon 4. Strandy opacities in the right lung base likely represents atelectasis. Laboratory Results WBC 6.7 10^3/uL (4.0-10.0) 07/06/22 03:48 RBC 4.57 10^6/uL (4.1-5.3) 07/06/22 03:48 Hgb 14.2 g/dL (11.5-15.3) 07/06/22 03:48 Hct 42.1 % (37.0-47.0) 07/06/22 03:48 MCV 92.1 fl (81-99) 07/06/22 03:48 MCH 31.1 pg (28.0-34.0) 07/06/22 03:48 MCHC 33.7 g/dL (30.0-36.0) 07/06/22 03:48 RDW 14.0 % (12.1-15.1) 07/06/22 03:48 Plt Count 142 10^3/cmm (130-400) 07/06/22 03:48 MPV 11.2 fL (7.4-10.4) H 07/06/22 03:48 Neut % (Auto) 69.1 % 07/06/22 03:48 Lymph % (Auto) 15.9 % 07/06/22 03:48 [place] % (Auto) 11.0 % 07/06/22 03:48 Eos % (Auto) 1.4 % 07/06/22 03:48 Baso % (Auto) 0.8 % 07/06/22 03:48 Neut # (Auto) 4.61 10^3/uL (1.8-7.7) 07/06/22 03:48 Lymph # (Auto) 1.1 10^3/uL (0.8-4.8) 07/06/22 03:48 [place] # (Auto) 0.7 10^3/uL (0.2-0.9) 07/06/22 03:48 Eos # (Auto) 0.1 10^3/uL (0.0-0.8) 07/06/22 03:48 Baso # (Auto) 0.1 10^3/uL (0.0-0.1) 07/06/22 03:48 Nucleated RBC % (auto) 0 % 07/06/22 03:48 Nucleated RBCs # 0.0 /100WBC 07/06/22 03:48 PT 17.80 SECONDS (12.1-14.9) H 07/06/22 03:48 INR 1.44 (0.8-1.2) H 07/06/22 03:48 APTT 37.3 SECONDS (23.9-36.7) H 07/06/22 03:48 Sodium 131 mmol/L (136-145) L 07/06/22 06:59 Potassium 4.5 mmol/L (3.5-5.1) 07/06/22 06:59 Chloride 96 mmol/L (98-107) L 07/06/22 06:59 Carbon Dioxide 23 mmol/L (22-29) 07/06/22 06:59 Anion Gap 16.5 (5-19) 07/06/22 06:59 BUN 18 mg/dL (8-23) 07/06/22 06:59 Creatinine 0.7 mg/dL (0.5-0.9) 07/06/22 06:59 GFR Calculation Not Reportable 07/06/22 06:59 Glucose 247 mg/dL (65-115) H 07/06/22 06:59 Calculated Osmolality 282 mOsm/kg (285-295) L 07/06/22 06:59 Lactate 2.4 mmol/L (0.5-2.2) H 07/06/22 05:30 Calcium 9.6 mg/dL (8.5-10.5) 07/06/22 06:59 Total Bilirubin 2.6 mg/dL (0.15-1.2) H 07/06/22 06:59 AST 510 U/L (0-32) H 07/06/22 06:59 ALT 343 U/L (0-33) H 07/06/22 06:59 Alkaline Phosphatase 333 U/L (35-105) H 07/06/22 06:59 Ammonia 29 umol/L (11-51) 07/06/22 05:30 Troponin T Baseline 17 ng/L (0-10) H 07/06/22 03:48 Troponin T 120 Minute 16.45 ng/L (0-10) H 07/06/22 05:30 Delta Troponin T -0.55 ABS# (0-10) L 07/06/22 05:30 NT-Pro-B Natriuret Pep 91 pg/mL (0-125) 07/06/22 03:48 Total Protein 6.5 g/dL (6.6-8.7) L 07/06/22 06:59 Albumin 3.5 g/dL (3.5-5.2) 07/06/22 06:59 Globulin 3.0 g/dL (1.3-4.6) 07/06/22 06:59 Lipase 41 U/L (13-60) 07/06/22 05:30 Acetaminophen < 5.0 ug/mL (10-30) L 07/06/22 03:48 Ethyl Alcohol < 10 mg/dL (0-10) 07/06/22 03:48 Hepatitis A IgM Ab Non-reactive (Nonreactive) 07/06/22 03:48 Hep Bs Antigen Non-reactive (Nonreactive) 07/06/22 03:48 Hep B Core IgM Ab Non-reactive (Nonreactive) 07/06/22 03:48 Hepatitis C Antibody Non-reactive (Nonreactive) 07/06/22 03:48 Discharge Plan Discharge Patient Disposition: Home Clinical Impression: Nonspecific chest pain Condition: Stable Prescriptions: No Action levothyroxine 100 mcg capsule 125 mcg PO DAILY acetaminophen [Tylenol] 325 mg tablet 325 mg PO Q4-5H PRN (Reason: Pain) aspirin 81 mg tablet,delayed release (DR/EC) 81 mg PO DAILY Xarelto 20 mg tablet 20 mg PO DAILY Qty: 90 3RF spironolactone 25 mg tablet 25 mg PO BID furosemide 40 mg tablet 40 mg PO DAILY PRN (Reason: Edema) Qty: 0 0RF sennosides 15 mg Tablet 15 mg PO DAILY ropinirole 0.5 mg tablet 0.5 mg PO BEDTIME Robitussin 10 ml PO BEDTIME PRN (Reason: Cough) simvastatin 40 mg tablet 40 mg PO DAILY ascorbic acid (vitamin C) [Vitamin C] 500 mg Tablet 500 mg PO DAILY baclofen 10 mg tablet 5 mg PO BIDWMEAL Hold Instructions: see pcp Rx Instructions: BREAKFAST AND LUNCH magnesium oxide 250 mg magnesium Tablet 250 mg PO DAILY Hold Instructions: see pcp metoprolol tartrate 25 mg tablet 25 mg PO DAILY fenofibrate 160 mg tablet 160 mg PO DAILY Hold Instructions: see pcp pregabalin 300 mg capsule 300 mg PO BID omega 5-hbn-zff-fish oil [Fish Oil] 1,000 mg (120 mg-180 mg) Capsule 2 cap PO DAILY baclofen 10 mg tablet 10 mg PO DAILY Discharge Orders: Discharge ED (Routine); Ordered 07/06/22 Ordered By: Travis Lofton Referrals: Kannan Contreras [Primary Care Provider] - Coding Level of Care Code ED Liquified Natural Gas Technician for Chg Fwd Exam Comprehensive Documented by User: Travis Lofton MD 07/06/22 07:39 HPI - Chest Pain General: Chief Complaint: Chest Pain Stated Complaint: CP, nausea Time Seen by Provider: 07/06/22 03:03 [facility] ED PFSH: Medical History Arrhythmia Carpal tunnel syndrome Cervical cancer Chronic back pain Chronic pain COPD (chronic obstructive pulmonary disease) Coronary artery disease Diabetes mellitus Diabetic neuropathy Diastolic heart failure DJD (degenerative joint disease) Encounter for long-term opiate analgesic use Hyperlipidemia Myocardial infarction Obesity Obstructive sleep apnea Opioid contract exists Ovarian cancer Paroxysmal atrial fibrillation Smoker Thyroid disease Surgical History History of angioplasty History of back surgery History of carpal tunnel surgery History of cholecystectomy History of coronary artery stent placement History of hysterectomy History of knee surgery Family History Father No problems noted. Social History Smoking and tobacco status: current every day smoker Smoking risk assessment/counseling performed?: Yes Alcohol intake: former History of recent travel: No Physical Exam Neuro: FRANCIS COMA SCALE: document GCS findings Mullins coma scale total score: 15 Course Vital Signs: Vital signs: Vital Signs Pulse Rate 82 07/06/22 10:03 Respiratory Rate 20 H 07/06/22 10:03 Blood Pressure 103/56 07/06/22 10:03 Pulse Oximetry 94 07/06/22 10:03 Oxygen Delivery Me thod 07/06/22 08:01 Oxygen Flow Rate 2 07/06/22 08:01 MDM - Chest Pain Medical Decision Making 76-year-old lady who presents with chest pain. She has no acute ST changes on her EKG. She was given Nitropaste with relief of her chest discomfort, however it caused a headache evidently. Her blood pressure is 122/62 heart rate of 90 saturations 94% on room air. Her chest x-ray shows some basilar atelectasis. Her CBC is normal. Her BMP shows a glucose of 261 and is otherwise unremarkable. CT of the abdomen pelvis is performed due to significant elevation in liver enzymes which were unexplained otherwise. It shows an enlarged spleen and fatty infiltration with no ductal dilatation. She has a history of a cholecystectomy. Pancreas is normal by CT. Lipase is pending. Lactic acid is minimally elevated at 2.4, alcohol is less than 10 hepatitis panel is negative Tylenol level is negative. Elevation of LFTs is of unknown origin at this point. Repeating a fluid bolus, and will repeat in case of lab air. Patient is now asking to go home. I received sign out from Dr. Bella. The patient's repeat CMP showed some mild improvement in her liver enzyme elevation. I talked to the patient and she states that she does have some nausea and feels like she wants to throw up but cannot. She is tolerating p.o. She also states she has developed a little bit of a cough and just generalized not feeling well. She is still asking to go elan e. I talked her about the test results and encouraged her to stay hydrated. We will also encourage her to follow-up with her primary care doctor for repeat labs this next week. Will discharge home at this time with precautions to return for worsening or changing symptoms. Lab Data 07/06/22 03:48 07/06/22 03:48 Radiology Impressions Chest X-Ray 07/06/22 03:13 IMPRESSION: Linear opacities in the lower hemithoraces bilaterally, left more prominent than right compatible with atelectasis. Infiltrates and left basilar pneumonia cannot be entirely excluded. Abdomen/Pelvis CT 07/06/22 04:53 IMPRESSION: 1. Mild fatty infiltration of the liver 2. Splenomegaly 3. Mild diverticulosis of the sigmoid colon 4. Strandy opacities in the right lung base likely represents atelectasis. Laboratory Results WBC 6.7 10^3/uL (4.0-10.0) 07/06/22 03:48 RBC 4.57 10^6/uL (4.1-5.3) 07/06/22 03:48 Hgb 14.2 g/dL (11.5-15.3) 07/06/22 03:48 Hct 42.1 % (37.0-47.0) 07/06/22 03:48 MCV 92.1 fl (81-99) 07/06/22 03:48 MCH 31.1 pg (28.0-34.0) 07/06/22 03:48 MCHC 33.7 g/dL (30.0-36.0) 07/06/22 03:48 RDW 14.0 % (12.1-15.1) 07/06/22 03:48 Plt Count 142 10^3/cmm (130-400) 07/06/22 03:48 MPV 11.2 fL (7.4-10.4) H 07/06/22 03:48 Neut % (Auto) 69.1 % 07/06/22 03:48 Lymph % (Auto) 15.9 % 07/06/22 03:48 [place] % (Auto) 11.0 % 07/06/22 03:48 Eos % (Auto) 1.4 % 07/06/22 03:48 Baso % (Auto) 0.8 % 07/06/22 03:48 Neut # (Auto) 4.61 10^3/uL (1.8-7.7) 07/06/22 03:48 Lymph # (Auto) 1.1 10^3/uL (0.8-4.8) 07/06/22 03:48 [place] # (Auto) 0.7 10^3/uL (0.2-0.9) 07/06/22 03:48 Eos # (Auto) 0.1 10^3/uL (0.0-0.8) 07/06/22 03:48 Baso # (Auto) 0.1 10^3/uL (0.0-0.1) 07/06/22 03:48 Nucleated RBC % (auto) 0 % 07/06/22 03:48 Nucleated RBCs # 0.0 /100WBC 07/06/22 03:48 PT 17.80 SECONDS (12.1-14.9) H 07/06/22 03:48 INR 1.44 (0.8-1.2) H 07/06/22 03:48 APTT 37.3 SECONDS (23.9-36.7) H 07/06/22 03:48 Sodium 131 mmol/L (136-145) L 07/06/22 06:59 Potassium 4.5 mmol/L (3.5-5.1) 07/06/22 06:59 Chloride 96 mmol/L (98-107) L 07/06/22 06:59 Carbon Dioxide 23 mmol/L (22-29) 07/06/22 06:59 Anion Gap 16.5 (5-19) 07/06/22 06:59 BUN 18 mg/dL (8-23) 07/06/22 06:59 Creatinine 0.7 mg/dL (0.5-0.9) 07/06/22 06:59 GFR Calculation Not Reportable 07/06/22 06:59 Glucose 247 mg/dL (65-115) H 07/06/22 06:59 Calculated Osmolality 282 mOsm/kg (285-295) L 07/06/22 06:59 Lactate 2.4 mmol/L (0.5-2.2) H 07/06/22 05:30 Calcium 9.6 mg/dL (8.5-10.5) 07/06/22 06:59 Total Bilirubin 2.6 mg/dL (0.15-1.2) H 07/06/22 06:59 AST 510 U/L (0-32) H 07/06/22 06:59 ALT 343 U/L (0-33) H 07/06/22 06:59 Alkaline Phosphatase 333 U/L (35-105) H 07/06/22 06:59 Ammonia 29 umol/L (11-51) 07/06/22 05:30 Troponin T Baseline 17 ng/L (0-10) H 07/06/22 03:48 Troponin T 120 Minute 16.45 ng/L (0-10) H 07/06/22 05:30 Delta Troponin T -0.55 ABS# (0-10) L 07/06/22 05:30 NT-Pro-B Natriuret Pep 91 pg/mL (0-125) 07/06/22 03:48 Total Protein 6.5 g/dL (6.6-8.7) L 07/06/22 06:59 Albumin 3.5 g/dL (3.5-5.2) 07/06/22 06:59 Globulin 3.0 g/dL (1.3-4.6) 07/06/22 06:59 Lipase 41 U/L (13-60) 07/06/22 05:30 Acetaminophen < 5.0 ug/mL (10-30) L 07/06/22 03:48 Ethyl Alcohol < 10 mg/dL (0-10) 07/06/22 03:48 Hepatitis A IgM Ab Non-reactive (Nonreactive) 07/06/22 03:48 Hep Bs Antigen Non-reactive (Nonreactive) 07/06/22 03:48 Hep B Core IgM Ab Non-reactive (Nonreactive) 07/06/22 03:48 Hepatitis C Antibody Non-reactive (Nonreactive) 07/06/22 03:48 Discharge Plan Discharge Patient Disposition: Home Clinical Impression: Nonspecific chest pain Condition: Stable Prescriptions: No Action levothyroxine 100 mcg capsule 125 mcg PO DAILY acetaminophen [Tylenol] 325 mg tablet 325 mg PO Q4-5H PRN (Reason: Pain) aspirin 81 mg tablet,delayed release (DR/EC) 81 mg PO DAILY Xarelto 20 mg tablet 20 mg PO DAILY Qty: 90 3RF spironolactone 25 mg tablet 25 mg PO BID furosemide 40 mg tablet 40 mg PO DAILY PRN (Reason: Edema) Qty: 0 0RF sennosides 15 mg Tablet 15 mg PO DAILY ropinirole 0.5 mg tablet 0.5 mg PO BEDTIME Robitussin 10 ml PO BEDTIME PRN (Reason: Cough) simvastatin 40 mg tablet 40 mg PO DAILY ascorbic acid (vitamin C) [Vitamin C] 500 mg Tablet 500 mg PO DAILY baclofen 10 mg tablet 5 mg PO BIDWMEAL Hold Instructions: see pcp Rx Instructions: BREAKFAST AND LUNCH magnesium oxide 250 mg magnesium Tablet 250 mg PO DAILY Hold Instructions: see pcp metoprolol tartrate 25 mg tablet 25 mg PO DAILY fenofibrate 160 mg tablet 160 mg PO DAILY Hold Instructions: see pcp pregabalin 300 mg capsule 300 mg PO BID omega 6-gao-dcm-fish oil [Fish Oil] 1,000 mg (120 mg-180 mg) Capsule 2 cap PO DAILY baclofen 10 mg tablet 10 mg PO DAILY Discharge Orders: Discharge ED (Routine); Ordered 07/06/22 Ordered By: Travis Lofton Referrals: Kannan Contreras [Primary Care Provider] - Coding Level of Care Code ED Liquified Natural Gas Technician for Rosa Mariag Fwd Exam Comprehensive
[2022-07-06] MEDS: aspirin 81 mg Chew Tablet 324 MG PO (03:23)
[2022-07-06] MEDS: nitroglycerin 1 gm/inch oint Pkt 0.5 INCH TOPICAL (03:25)
[2022-07-06] MEDS: morphine 4 mg/mL SDV 1 mL 2 MG IVP (03:51)
[2022-07-06 03:55] LABS: Basophils # 0.1 10^3/uL (0.0-0.1); Basophils % 0.8 %; Eosinophils # 0.1 10^3/uL (0.0-0.8); Eosinophils % 1.4 %; Hematocrit 42.1 % (37.0-47.0); Hemoglobin 14.2 g/dL (11.5-15.3); Lymphocytes # 1.1 10^3/uL (0.8-4.8); Lymphocytes % 15.9 %; Mean Corpuscular HGB Conc 33.7 g/dL (30.0-36.0); Mean Corpuscular Hemoglobin 31.1 pg (28.0-34.0); Mean Corpuscular Volume 92.1 fl (81-99); Mean Platelet Volume 11.2 fL (7.4-10.4); Monocytes # 0.7 10^3/uL (0.2-0.9); Neutrophils # 4.61 10^3/uL (1.8-7.7); Neutrophils % 69.1 %; Nucleated Red Blood Cells % 0 %; Platelet Count 142 10^3/cmm (130-400); Red Blood Count 4.57 10^6/uL (4.1-5.3); White Blood Count 6.7 10^3/uL (4.0-10.0)
[2022-07-06 04:08] LABS: INR 1.44 (0.8-1.2)
[2022-07-06 04:09] LABS: Partial Thromboplastin Time 37.3 SECONDS (23.9-36.7)
[2022-07-06 04:13] LABS: Alanine Aminotransferase 387 U/L (0-33); Albumin Level 4.2 g/dL (3.5-5.2); Alkaline Phosphatase 389 U/L (35-105); Anion Gap 19.4 (5-19); Blood Urea Nitrogen 19 mg/dL (8-23); Calcium 10.6 mg/dL (8.5-10.5); Carbon Dioxide 25 mmol/L (22-29); Chloride 93 mmol/L (98-107); Globulin 3.3 g/dL (1.3-4.6); Glucose 261 mg/dL (65-115); Osmolality Calculated 287 mOsm/kg (285-295); Potassium 4.4 mmol/L (3.5-5.1); Sodium 133 mmol/L (136-145); Total Bilirubin 2.5 mg/dL (0.15-1.2); Total Protein 7.5 g/dL (6.6-8.7)
[2022-07-06 04:15] LABS: Troponin(5th) Baseline 17 ng/L (0-10)
[2022-07-06 04:46] LABS: NT Pro B Type Natriuretic Pept 91 pg/mL (0-125)
[2022-07-06] MEDS: sodium chloride 0.9% 500 ML 999 ML IV ×2 (04:49→06:25)
--- NOTE | 2022-07-06 04:53 | CTR_ITS ---
PROCEDURE INFORMATION: Exam: CT Abdomen And Pelvis With Contrast Exam date and time: 07/06/2022 5:10 AM Age: 76 years old Clinical indication: Abdominal pain; Epigastric; Prior surgery; Surgery date: 6+ months; Surgery type: Back surgery, cholecystectomy, coronary stent, hysterectomy; Additional info: Elevated liver enzymes, epigastric pain TECHNIQUE: Imaging protocol: Computed tomography of the abdomen and pelvis with contrast. Radiation optimization: All CT scans at this facility use at least one of these dose optimization techniques: automated exposure control; mA and/or kV adjustment per patient size (includes targeted exams where dose is matched to clinical indication); or iterative reconstruction. Contrast material: OMNI 350; Contrast volume: 100 ml; Contrast route: INTRAVENOUS (IV); COMPARISON: CT pelvis wo con [id number] 06/02/2021 12:52 PM RADIATION DOSE METRICS: Total DLP (mGy-cm): 1365.71 FINDINGS: Lungs: There are strandy opacities present in the right lung base likely representing atelectasis. Coronary arteries: Calcifications are seen in the coronary arteries. Liver: There is hypoattenuation of the hepatic parenchyma compatible with fatty infiltration. Gallbladder and bile ducts: Status post cholecystectomy. Pancreas: Normal. No ductal dilation. Spleen: The spleen is prominent measuring 15.8 cm AP dimension. Adrenal glands: Normal. No mass. Kidneys and ureters: Normal. No hydronephrosis. Stomach and bowel: Diverticula are seen on the sigmoid colon. Appendix: The appendix is visualized and is normal in configuration. Intraperitoneal space: Unremarkable. No free air. No significant fluid collection. Vasculature: Calcifications are present within the thoracic and abdominal aorta, iliac arteries and femoral arteries bilaterally calcifications are seen in the celiac trunk and superior mesenteric arteries. Lymph nodes: Unremarkable. No enlarged lymph nodes. Urinary bladder: Unremarkable as visualized. Reproductive: Status post hysterectomy. Bones/joints: Pedicle screws and posterior rods extend from T10 through S2. Soft tissues: Unremarkable. CT/CT abdomen pelvis w con* [id number] IMPRESSION: 1. Mild fatty infiltration of the liver 2. Splenomegaly 3. Mild diverticulosis of the sigmoid colon 4. Strandy opacities in the right lung base likely represents atelectasis.
[2022-07-06] MEDS: iohexol 350 mg/mL 500 mL Btl (per mL) IV (05:13)
[2022-07-06 05:28] LABS: Acetaminophen < 5.0 ug/mL (10-30); Alcohol Level < 10 mg/dL (0-10)
--- NOTE | 2022-07-06 05:28 | ECG_ITS ---
[facility] Test Date: 2022-07-06 Pat Name: Emerald Uriostegui Department: Room: Gender: Female Merchandiser: : 1945 Requested By: Mack Kearney Order Number: [id number] Saurav MD: Cindy Millan M.D. Measurements Intervals [place] Rate: 83 P: 65 ME: 180 QRS: 82 QRSD: 94 T: 36 QT: 362 QTc: 426 Interpretive Statements SINUS RHYTHM LOW QRS VOLTAGE IN PRECORDIAL LEADS [QRS DEFLECTION < 1.0 mV IN CHEST LEADS] Compared to ECG 06/02/2021 11:58:37 T-wave abnormality no longer present Electronically Signed On 07-06-2022 8:23:13 QUALITY COORDINATOR by Cindy Millan M.D. [email or web address]
[2022-07-06 05:35] LABS: Hepatitis A Antibody IgM Non-Reactive (Nonreactive); Hepatitis B Core IgM Non-Reactive (Nonreactive); Hepatitis B Surface Antigen Non-Reactive (Nonreactive); Hepatitis C Virus Antibody Non-Reactive (Nonreactive)
[2022-07-06 05:53] LABS: Troponin 5 2HR 16.45 ng/L (0-10)
[2022-07-06 05:55] LABS: Ammonia 29 umol/L (11-51); Lactate (Lactic Acid level) 2.4 mmol/L (0.5-2.2); Troponin 5 2HR Delta -0.55 ABS# (0-10)
[2022-07-06 06:25] LABS: Lipase 41 U/L (13-60)
[2022-07-06 07:20] LABS: Alanine Aminotransferase 343 U/L (0-33); Albumin Level 3.5 g/dL (3.5-5.2); Alkaline Phosphatase 333 U/L (35-105); Anion Gap 16.5 (5-19); Aspartate Amino Transferase 510 U/L (0-32); Blood Urea Nitrogen 18 mg/dL (8-23); Calcium 9.6 mg/dL (8.5-10.5); Carbon Dioxide 23 mmol/L (22-29); Chloride 96 mmol/L (98-107); Glucose 247 mg/dL (65-115); Osmolality Calculated 282 mOsm/kg (285-295); Potassium 4.5 mmol/L (3.5-5.1); Sodium 131 mmol/L (136-145); Total Bilirubin 2.6 mg/dL (0.15-1.2); Total Protein 6.5 g/dL (6.6-8.7)
[2022-07-06] MEDS: acetaminophen 325 mg Tablet 650 MG PO (07:58)
== END 2022-07-06 10:06 | disposition home or self-care (01) ==
PROVIDERS: Emergency Medicine; Emergency Provider Emergency Medicine; PCP Family Medicine
DX: R07.89 Other chest pain (principal); Z79.82 Long term (current) use of aspirin; F17.210 Nicotine dependence, cigarettes, uncomplicated; Z85.41 Personal history of malignant neoplasm of cervix uteri; J44.9 Chronic obstructive pulmonary disease, unspecified; I25.10 Atherosclerotic heart disease of native coronary artery without angina pectoris; E11.9 Type 2 diabetes mellitus without complications; E78.5 Hyperlipidemia, unspecified; I25.2 Old myocardial infarction; Z85.43 Personal history of malignant neoplasm of ovary
CPT/HCPCS: 36415; 71045; 74177; 80053; 80074; 80307; 82140; 83605; 83690; 83880; 84484; 85025; 85610; 85730; 93005; 96361; 96374; 99285; J2270; J7040; Q9967